=== PATIENT | male | born 1955 | race Two or more races ===

== ENCOUNTER 2020-04-07 19:25 | Inpatient (IN) | payer OTHER, MEDICAID ==
[~2020-04-07] VITALS: Ht 180.3 cm; Wt 77.1 kg
[2020-04-07] MEDS ORDERED: PROMETHAZINE HCL 25 MG/ML 1ML IV ONE (20:15)
[2020-04-07] MEDS ORDERED: levoFLOXacin 500MG 100 ML IV ONE (21:00)
[2020-04-07] MEDS ORDERED: SODIUM CHLORIDE 0.9% 1,000 ML IV ONE (21:00)
[2020-04-07] MEDS ORDERED: MORPHINE SULF INJ 2 MG/ML SYRINGE 1ML IV ONE (21:00)
[2020-04-07] MEDS ORDERED: metroNIDAZOLE 500MG/100ML 100 ML IV ONE (21:30)
[2020-04-07 21:43] LABS: Basophils # (auto) 0 10 ^3/uL (0-0.2); Basophils % (auto) 0.2 % (0.0-2.0); Eosinophils # (auto) 0 10 ^3/uL (0-0.8); Eosinophils % (auto) 0.2 % (0.0-7.0); Hemoglobin 15.7 g/dL (13.5-17.5); Lymphocytes # (auto) 1.4 10 ^3/uL (0.4-5.4); Lymphocytes % (auto) 6.6 % (10.0-50.0); Mean Corpuscular Hemoglobin 29.9 pg (28.0-32.0); Mean Corpuscular Hgb Conc. 33.4 g/dL (32.0-36.0); Mean Corpuscular Volume 89.5 fL (80.0-100.0); Monocytes # (auto) 1.2 10 ^3/uL (0-1.3); Monocytes % (auto) 5.5 % (0.0-12.0); Neutrophils # (auto) 18.8 10 ^3/uL (1.6-8.6); Neutrophils % (auto) 87.5 % (37.0-80.0); Nucleated Red Blood Cells % 0.5 %; Platelet Count (auto) 262 10^3/uL (140-450); Red Blood Cells 5.25 10^6/uL (4.5-5.90); Red Cell Distribution Width 14.4 % (11.8-14.3); White Blood Cell 21.5 10^3/uL (4.4-10.8)
[2020-04-07] MEDS ORDERED: DEXTROSE (50%) 50ML SYRG IV PRN (21:45)
[2020-04-07] MEDS ORDERED: TEMAZEPAM 15 MG CAP PO PRN (21:45)
[2020-04-07] MEDS ORDERED: PANTOPRAZOLE 40 MG TAB PO ONE (21:45)
[2020-04-07] MEDS ORDERED: ACETAMINOPHEN 325 MG TAB PO PRN (21:45)
[2020-04-07] MEDS ORDERED: ONDANSETRON HCL 4 MG/2 ML VIAL IV PRN (21:45)
[2020-04-07 21:53] LABS: Partial Thromboplastin Time 25.2 sec (23.0-31.2)
[2020-04-07 21:55] LABS: Albumin 2.7 g/dL (3.4-5.0); BUN/Creatinine Ratio 20.6; Calcium 9.1 mg/dL (8.5-10.1); Magnesium 2.8 mg/dL (1.6-2.6); Potassium 3.4 mmol/L (3.5-5.1)
[2020-04-07 22:00] LABS: Bilirubin, Total 0.6 mg/dL (0.2-1.0); Total Protein 7.7 g/dL (6.4-8.2)
[2020-04-07] MEDS ORDERED: metroNIDAZOLE 500MG/100ML 100 ML IV SCH (22:00)
[2020-04-07] MEDS: METOPROLOL TARTRATE 25 MG TAB PO SCH (22:10)
[2020-04-07] MEDS: hydrALAZINE HCL 25 MG TAB PO SCH (22:10)
--- NOTE | 2020-04-07 22:40 | NUR ---
MS admit from ER JAMA HIGUERA admitted to tele/MS after SBAR received. Patient oriented to KENNY GONSALEZ, RN primary RN, unit, room, bed, and unit policies regarding patient care and visiting hours. Patient weighed by bedscale and encouraged to call if they need something. All questions and concerns addressed, patient verbalized understanding.
[2020-04-07] MEDS ORDERED: GEMF600T7 PO (23:43)
[2020-04-07] MEDS ORDERED: PRED-158 PO (23:43)
[2020-04-07] MEDS ORDERED: ASPI-543 PO (23:43)
[2020-04-07] MEDS ORDERED: FURO40TA4 PO (23:43)
[2020-04-07] MEDS ORDERED: PANT40TA2 PO (23:43)
[2020-04-07] MEDS ORDERED: METO25TA93 PO (23:43)
[2020-04-07] MEDS ORDERED: HYDR50TA15 PO (23:43)
[2020-04-07] MEDS ORDERED: TAMS0.4C36 PO (23:43)
[2020-04-07 23:48] VITALS: BP 112/76
[2020-04-08] MEDS: ACCU-CHEK COMFORT CURVE STRIP VI SCH ×4 (00:26→18:19)
[2020-04-08] MEDS: InsuLIN REG 1unit/0.01ml Soln (100units/ml) SC SCH ×4 (00:26→18:24)
[2020-04-08] MEDS: HYDROcodone-ACET 5/325MG TAB PO PRN (04:22)
[2020-04-08 05:00] VITALS: BP 94/53
[2020-04-08] MEDS: metroNIDAZOLE 500MG/100ML 100 ML IV SCH ×2 (05:18→13:22)
--- NOTE | 2020-04-08 06:00 | NUR ---
Hospitalist called Informed hospitalist of patient's desire of increased pain medication. No new orders at this time.
--- NOTE | 2020-04-08 07:40 | NUR ---
Closing Shift Note Endorsed care to day shift RN
[2020-04-08 08:00] VITALS: BP 115/61
[2020-04-08 08:52] VITALS: BP 115/61
[2020-04-08] MEDS ORDERED: cefTRIAXone 1GM/50ML D5W 50 ML IV SCH (09:00)
[2020-04-08] MEDS: hydrALAZINE HCL 25 MG TAB PO SCH (09:07)
[2020-04-08] MEDS: PANTOPRAZOLE 40 MG TAB PO SCH (09:09)
[2020-04-08] MEDS: METOPROLOL TARTRATE 25 MG TAB PO SCH ×2 (09:09→22:35)
[2020-04-08] MEDS ORDERED: ISOSORBIDE MONONITRATE ER 60 MG TAB PO SCH (10:00)
[2020-04-08] MEDS ORDERED: FUROSEMIDE 40 MG TAB PO SCH (10:00)
[2020-04-08] MEDS ORDERED: predniSONE 5 MG TAB PO SCH (10:00)
[2020-04-08 10:05] LABS: BUN/Creatinine Ratio 17.3; Calcium 8.6 mg/dL (8.5-10.1); Potassium 3.6 mmol/L (3.5-5.1)
[2020-04-08 12:02] LABS: Urine Bacteria NONE SEEN /hpf (None Seen); Urine Blood Negative /uL (Negative); Urine Specific Gravity 1.015 (1.001-1.035); Urine WBC 1 /hpf (0 - 3)
[2020-04-08 13:00] VITALS: BP 94/68
[2020-04-08] MEDS ORDERED: predniSONE 5 MG TAB PO ONE (13:15)
[2020-04-08] MEDS: SODIUM CHLORIDE 0.9% 1,000 ML IV SCH (13:21)
--- NOTE | 2020-04-08 16:17 | NUR ---
MICRO RESULT MD HONG PAGED TO INFORM OF POSITIVE CDIFF RESULT. WILL AWAIT CALL BACK.
--- NOTE | 2020-04-08 16:20 | NUR ---
NEW ORDERS RECEIVED VIA TELEPHONE BY MD HONG. ORDERS READ BACK, AND VERIFIED. WILL CARRY OUT.
--- NOTE | 2020-04-08 16:35 | NUR ---
PHARMACY CLARIFICATION NEEDED MD HONG PAGED AGAIN BY PHARMACY REQUEST TO VERIFY NEW MEDICATION ORDER. REFER TO EMAR. WILL AWAIT CALL BACK.
[2020-04-08 16:56] VITALS: BP 101/63
--- NOTE | 2020-04-08 17:34 | NUR ---
AIRPLANE NAVIGATOR HOSPITALIST PAGED TO OBTAIN CLARIFICATION FOR VANCOMYCIN DOSAGE. WILL AWAIT CALL BACK.
[2020-04-08] MEDS ORDERED: VANCOMYCIN HCL 125MG/5ML ORAL SOL PO SCH (18:00)
[2020-04-08] MEDS: TAMSULOSIN HYDROCHLORIDE 0.4 MG CAP PO SCH (18:19)
[2020-04-08] MEDS: MESALAMINE 400mg Delayed Release Cap PO SCH (18:19)
--- NOTE | 2020-04-08 19:50 | NUR ---
Opening Shift Note Assumed care of patient, awake and alert. No S/S of distress/SOB or pain. Instructed on POC and to call for assist PRN, will continue to monitor for changes Q1hr and PRN. Fall precautions in place call light within reach and bed in low position . patient verbalized understanding to call for assistance.
[2020-04-08 22:00] VITALS: BP 80/56
--- NOTE | 2020-04-08 22:25 | NUR ---
Informed FLOORHAND ashley of pharmacy clarification for vancomycin. new orders received orders read back and verified by corrections specialist ashley.
[2020-04-08] MEDS: VANCOMYCIN HCL 125MG/5ML ORAL SOL PO SCH (22:34)
--- NOTE | 2020-04-08 22:34 | NUR ---
patient refusing scheduled medications. Patient refusing scheduled fluids. per patient " They already gave me apple juice i do not need fluids." " i do not want that medication." Patient denies sob distress or pain.Patient educated that blood pressure is low 80/56 and if he would allow me to reassess blood pressure patient refused. Patient educated on benefits and risks of medications and fluids. patient verbalized refusal and stated "It will be a cold day in hell before i let you." will continue to monitor patient. fall precautions in place. call light within reach and bed in low position.
[2020-04-09] MEDS: HYDROcodone-ACET 5/325MG TAB PO PRN (01:36)
[2020-04-09 05:00] VITALS: BP 119/85
[2020-04-09] MEDS: VANCOMYCIN HCL 125MG/5ML ORAL SOL PO SCH ×3 (05:58→17:47)
[2020-04-09] MEDS: SODIUM CHLORIDE 0.9% 1,000 ML IV SCH ×2 (05:58→22:39)
[2020-04-09] MEDS: InsuLIN REG 1unit/0.01ml Soln (100units/ml) SC SCH ×4 (05:59→17:51)
[2020-04-09] MEDS: ACCU-CHEK COMFORT CURVE STRIP VI SCH ×4 (05:59→17:47)
--- NOTE | 2020-04-09 06:43 | NUR ---
patient rounds patient resting in bed. denies sob distress or pain. iv is intact and patent. fall precautions in place. call light within reach and bed in low position.
--- NOTE | 2020-04-09 07:15 | NUR ---
report given to dayshift rn patient shows no signs of sob distress or pain
[2020-04-09 07:32] LABS: Basophils # (auto) 0.1 10 ^3/uL (0-0.2); Basophils % (auto) 0.4 % (0.0-2.0); Eosinophils # (auto) 0.1 10 ^3/uL (0-0.8); Eosinophils % (auto) 0.5 % (0.0-7.0); Hematocrit 36.1 % (41.0-53.0); Hemoglobin 12.4 g/dL (13.5-17.5); Lymphocytes # (auto) 0.9 10 ^3/uL (0.4-5.4); Lymphocytes % (auto) 7.2 % (10.0-50.0); Mean Corpuscular Hemoglobin 30.9 pg (28.0-32.0); Mean Corpuscular Hgb Conc. 34.4 g/dL (32.0-36.0); Mean Corpuscular Volume 89.7 fL (80.0-100.0); Monocytes # (auto) 0.5 10 ^3/uL (0-1.3); Monocytes % (auto) 4.2 % (0.0-12.0); Neutrophils % (auto) 87.7 % (37.0-80.0); Platelet Count (auto) 194 10^3/uL (140-450); Red Blood Cells 4.02 10^6/uL (4.5-5.90); Red Cell Distribution Width 14.1 % (11.8-14.3); White Blood Cell 12.6 10^3/uL (4.4-10.8)
[2020-04-09 07:52] LABS: Calcium 8.5 mg/dL (8.5-10.1); Potassium 3.5 mmol/L (3.5-5.1)
--- NOTE | 2020-04-09 08:40 | NUR ---
DR GRANT AT BED SIDE DISCUSSING POC WITH PATIENT. PATIENT VERBALIZES UNDERSTANDING.
--- NOTE | 2020-04-09 08:45 | NUR ---
REQUEST FOR PATIENT MEDICAL REPORTS (GI REPORTS/PATHOLOGY) FAXED TO [facility] TO FAX #:[phone]
[2020-04-09 09:00] VITALS: BP 110/80
[2020-04-09] MEDS ORDERED: predniSONE 20 MG TAB PO SCH (10:00)
[2020-04-09] MEDS ORDERED: predniSONE 5 MG TAB PO SCH (10:00)
[2020-04-09] MEDS: ASPirin 81 mg TAB PO SCH (10:04)
[2020-04-09] MEDS: FLORASTOR (S. BOULARDII) 250 MG CAP PO SCH (10:04)
[2020-04-09] MEDS: METOPROLOL TARTRATE 25 MG TAB PO SCH ×2 (10:05→22:00)
[2020-04-09] MEDS: PANTOPRAZOLE 40 MG TAB PO SCH (10:05)
--- NOTE | 2020-04-09 10:19 | NUR ---
MEDICAL RECORDS RECEIVED FROM [facility] AND IN HARD CHART
[2020-04-09 12:47] VITALS: BP 130/77
[2020-04-09] MEDS: metroNIDAZOLE 500 MG TAB PO SCH ×2 (14:11→22:39)
--- NOTE | 2020-04-09 14:39 | NUR ---
Nutrition Assessment Notes Please refer to link for full assessment notes. Est Energy needs: 8193-1063 kcals (30-35 kcal/kgBW) d/t pt Stg 3 CKD Est Protein needs: 41-52 gms/day (0.6-0.75 gm/kgBW) d/t pt Stg 3 CKD Will continue to monitor and reassess prn. Addendum: 04/09/20 at [address] Amended: Links added.
[2020-04-09 16:47] VITALS: BP 120/85
[2020-04-09] MEDS: TAMSULOSIN HYDROCHLORIDE 0.4 MG CAP PO SCH (17:47)
[2020-04-09] MEDS: MESALAMINE 400mg Delayed Release Cap PO SCH (17:47)
--- NOTE | 2020-04-09 19:30 | NUR ---
Opening Shift Note Assumed care of patient, awake and alert. A&Ox4. No S/S of distress/SOB or pain. Safety measures maintained by keeping the bed locked in lowest position, personal items and call light within reach. Instructed on POC and to call for assist PRN, will continue to monitor for changes Q1hr and PRN.
[2020-04-09 22:00] VITALS: BP 98/68
[2020-04-10] MEDS: ACCU-CHEK COMFORT CURVE STRIP VI SCH ×5 (00:14→23:47)
[2020-04-10] MEDS: InsuLIN REG 1unit/0.01ml Soln (100units/ml) SC SCH ×5 (00:14→23:52)
[2020-04-10] MEDS: VANCOMYCIN HCL 125MG/5ML ORAL SOL PO SCH ×5 (00:14→23:47)
[2020-04-10 05:00] VITALS: BP 105/74
[2020-04-10] MEDS: metroNIDAZOLE 500 MG TAB PO SCH ×3 (05:51→22:55)
[2020-04-10 09:00] VITALS: BP 133/75
[2020-04-10 10:15] LABS: Albumin 2.5 g/dL (3.4-5.0); Calcium 8.2 mg/dL (8.5-10.1); Potassium 3.6 mmol/L (3.5-5.1)
[2020-04-10 10:17] LABS: Basophils # (auto) 0.1 10 ^3/uL (0-0.2); Basophils % (auto) 0.5 % (0.0-2.0); Eosinophils # (auto) 0.1 10 ^3/uL (0-0.8); Eosinophils % (auto) 0.8 % (0.0-7.0); Hematocrit 37.2 % (41.0-53.0); Hemoglobin 12.4 g/dL (13.5-17.5); Lymphocytes # (auto) 1.6 10 ^3/uL (0.4-5.4); Lymphocytes % (auto) 13.2 % (10.0-50.0); Mean Corpuscular Hemoglobin 30.7 pg (28.0-32.0); Mean Corpuscular Hgb Conc. 33.3 g/dL (32.0-36.0); Mean Corpuscular Volume 92.1 fL (80.0-100.0); Monocytes # (auto) 0.8 10 ^3/uL (0-1.3); Neutrophils # (auto) 9.5 10 ^3/uL (1.6-8.6); Neutrophils % (auto) 78.5 % (37.0-80.0); Platelet Count (auto) 220 10^3/uL (140-450); Red Blood Cells 4.04 10^6/uL (4.5-5.90); Red Cell Distribution Width 14.3 % (11.8-14.3)
[2020-04-10 10:20] LABS: BUN/Creatinine Ratio 13.8; Bilirubin, Total 0.3 mg/dL (0.2-1.0); Total Protein 6.4 g/dL (6.4-8.2)
[2020-04-10] MEDS: PANTOPRAZOLE 40 MG TAB PO SCH (10:23)
[2020-04-10] MEDS: ASPirin 81 mg TAB PO SCH (10:23)
[2020-04-10] MEDS: METOPROLOL TARTRATE 25 MG TAB PO SCH ×2 (10:24→22:00)
[2020-04-10] MEDS: FLORASTOR (S. BOULARDII) 250 MG CAP PO SCH (10:24)
[2020-04-10] MEDS: HYDROcodone-ACET 5/325MG TAB PO PRN ×2 (11:37→20:51)
[2020-04-10] MEDS: MESALAMINE 400mg Delayed Release Cap PO SCH ×2 (11:38→22:56)
--- NOTE | 2020-04-10 11:50 | NUR ---
IV ACCESS Patient has no IV access, Doctor Sarah informed, per Doctor Sarah patient doesn't need a IV at this time all medications are PO. Per doctor Sarah patient is okay with no IV access.
--- NOTE | 2020-04-10 12:15 | NUR ---
PATIENT TAKEN DOWN TO OR FOR A PROCEDURE. Addendum: 04/10/20 at 1238 by THUY CAAL RN RN WRONG PATIENT
[2020-04-10 13:00] VITALS: BP 147/84
[2020-04-10 17:00] VITALS: BP 98/74
[2020-04-10] MEDS: TAMSULOSIN HYDROCHLORIDE 0.4 MG CAP PO SCH (18:20)
--- NOTE | 2020-04-10 19:30 | NUR ---
Opening Shift Note Assumed care of patient, awake and alert. Patient resting in bed. A&Ox4. No S/S of distress/SOB or pain. Safety measures maintained by keeping the bed locked in lowest position, 2 side rails up, personal items and call light within reach. Instructed on POC and to call for assist PRN, will continue to monitor for changes Q1hr and PRN.
[2020-04-10 23:08] VITALS: BP 94/58
[2020-04-11 05:23] VITALS: BP 129/81
[2020-04-11] MEDS: InsuLIN REG 1unit/0.01ml Soln (100units/ml) SC SCH ×4 (06:00→23:46)
[2020-04-11 06:19] LABS: Basophils # (auto) 0.1 10 ^3/uL (0-0.2); Basophils % (auto) 0.7 % (0.0-2.0); Eosinophils # (auto) 0.2 10 ^3/uL (0-0.8); Eosinophils % (auto) 1.8 % (0.0-7.0); Hematocrit 39.2 % (41.0-53.0); Hemoglobin 13.4 g/dL (13.5-17.5); Lymphocytes # (auto) 3.2 10 ^3/uL (0.4-5.4); Lymphocytes % (auto) 27.1 % (10.0-50.0); Mean Corpuscular Hemoglobin 31.3 pg (28.0-32.0); Mean Corpuscular Hgb Conc. 34.2 g/dL (32.0-36.0); Mean Corpuscular Volume 91.4 fL (80.0-100.0); Monocytes # (auto) 0.7 10 ^3/uL (0-1.3); Monocytes % (auto) 6.3 % (0.0-12.0); Neutrophils # (auto) 7.6 10 ^3/uL (1.6-8.6); Neutrophils % (auto) 64.1 % (37.0-80.0); Nucleated Red Blood Cells % 0.1 %; Platelet Count (auto) 235 10^3/uL (140-450); Red Blood Cells 4.29 10^6/uL (4.5-5.90); Red Cell Distribution Width 14.6 % (11.8-14.3); White Blood Cell 11.8 10^3/uL (4.4-10.8)
[2020-04-11] MEDS: ACCU-CHEK COMFORT CURVE STRIP VI SCH ×4 (06:25→23:47)
[2020-04-11] MEDS: metroNIDAZOLE 500 MG TAB PO SCH ×3 (06:28→22:37)
[2020-04-11] MEDS: VANCOMYCIN HCL 125MG/5ML ORAL SOL PO SCH ×4 (06:29→23:46)
[2020-04-11 06:43] LABS: Albumin 2.4 g/dL (3.4-5.0); BUN/Creatinine Ratio 14.6; Calcium 8.1 mg/dL (8.5-10.1); Potassium 3.8 mmol/L (3.5-5.1)
[2020-04-11 06:46] LABS: Bilirubin, Total 0.3 mg/dL (0.2-1.0); Total Protein 6.2 g/dL (6.4-8.2)
[2020-04-11 08:00] VITALS: BP 137/83
[2020-04-11] MEDS ORDERED: predniSONE 20 MG TAB PO SCH ×2 (10:00→13:45)
[2020-04-11] MEDS: METOPROLOL TARTRATE 25 MG TAB PO SCH ×2 (10:19→22:38)
[2020-04-11] MEDS: FLORASTOR (S. BOULARDII) 250 MG CAP PO SCH (10:19)
[2020-04-11] MEDS: ASPirin 81 mg TAB PO SCH (10:19)
[2020-04-11] MEDS: PANTOPRAZOLE 40 MG TAB PO SCH (10:19)
[2020-04-11] MEDS: MESALAMINE 400mg Delayed Release Cap PO SCH ×2 (10:30→23:45)
[2020-04-11 12:00] VITALS: BP 124/77
--- NOTE | 2020-04-11 13:40 | NUR ---
Doctor Sarah at bedside, per Md he will d/c patient tomorrow morning.
[2020-04-11 17:00] VITALS: BP 114/79
[2020-04-11] MEDS: TAMSULOSIN HYDROCHLORIDE 0.4 MG CAP PO SCH (17:55)
--- NOTE | 2020-04-11 19:30 | NUR ---
Opening Shift Note Assumed care of patient, awake and alert. Patient sitting up in bed watching TV. A&Ox4. No S/S of distress/SOB or pain. Safety measures maintained by keeping the bed locked in lowest position, personal items and call light within reach. Instructed on POC and to call for assist PRN, will continue to monitor for changes Q1hr and PRN.
[2020-04-11 21:00] VITALS: BP 126/77
--- NOTE | 2020-04-11 22:30 | NUR ---
Called in house cra to obtain med from ER Med obtained at 2330
[2020-04-12 05:00] VITALS: BP 129/86
[2020-04-12 05:22] LABS: Basophils # (auto) 0 10 ^3/uL (0-0.2); Basophils % (auto) 0.2 % (0.0-2.0); Eosinophils # (auto) 0 10 ^3/uL (0-0.8); Eosinophils % (auto) 0.3 % (0.0-7.0); Hematocrit 37.6 % (41.0-53.0); Hemoglobin 12.5 g/dL (13.5-17.5); Lymphocytes % (auto) 13.1 % (10.0-50.0); Mean Corpuscular Hemoglobin 30.5 pg (28.0-32.0); Mean Corpuscular Hgb Conc. 33.2 g/dL (32.0-36.0); Monocytes # (auto) 0.7 10 ^3/uL (0-1.3); Monocytes % (auto) 4.4 % (0.0-12.0); Neutrophils # (auto) 12.3 10 ^3/uL (1.6-8.6); Platelet Count (auto) 240 10^3/uL (140-450); Red Blood Cells 4.08 10^6/uL (4.5-5.90); Red Cell Distribution Width 14.4 % (11.8-14.3)
[2020-04-12 05:41] LABS: Calcium 8.1 mg/dL (8.5-10.1); Potassium 4.3 mmol/L (3.5-5.1)
[2020-04-12 05:43] LABS: BUN/Creatinine Ratio 14.3
[2020-04-12] MEDS: VANCOMYCIN HCL 125MG/5ML ORAL SOL PO SCH (05:49)
[2020-04-12] MEDS: ACCU-CHEK COMFORT CURVE STRIP VI SCH (05:49)
[2020-04-12] MEDS: metroNIDAZOLE 500 MG TAB PO SCH (05:49)
[2020-04-12] MEDS: InsuLIN REG 1unit/0.01ml Soln (100units/ml) SC SCH (05:50)
[2020-04-12 09:00] VITALS: BP 104/48
[2020-04-12] MEDS: PANTOPRAZOLE 40 MG TAB PO SCH (10:00)
[2020-04-12] MEDS ORDERED: predniSONE 20 MG TAB PO ONE (10:00)
[2020-04-12] MEDS: FLORASTOR (S. BOULARDII) 250 MG CAP PO SCH (10:00)
[2020-04-12] MEDS: MESALAMINE 400mg Delayed Release Cap PO SCH (10:00)
[2020-04-12] MEDS ORDERED: predniSONE 20 MG TAB PO SCH (10:00)
[2020-04-12] MEDS: ASPirin 81 mg TAB PO SCH (10:00)
[2020-04-12] MEDS: METOPROLOL TARTRATE 25 MG TAB PO SCH (10:00)
--- NOTE | 2020-04-12 10:25 | NUR ---
Discharge instructions given as ordered. Encourage to follow up with PMD as instructed. All questions and concerns addressed. Patient verbalized understanding. Medication reconciliation form completed and copy given to patient. Home medications held in Pharmacy have been returned to patient. New prescriptions given to patient. IV removed with catheter intact, pressure dressing applied. Patient taken to vehicle via wheelchair with all personal belongings, accompanied by staff. Family member waiting in front lobby for transportation home. No distress noted at time of departure.
[2020-04-12 12:40] LABS: Hepatitis B Surface Antibody Negative
[2020-04-12 13:14] LABS: Hepatitis A Total Antibody Positive
[2020-04-12 14:00] LABS: Hepatitis B Core Total AB Negative
[2020-04-12 14:01] LABS: Hepatitis B Surface Antigen Negative (Negative)
[2020-04-12 14:02] LABS: Hepatitis C Antibody Positive (Negative)
== END 2020-04-12 10:25 | disposition home or self-care (01) | DRG 872 ==
LOC: EDUNIT# 19:25 → EDBD 19:25 → ER 19:30 → OVERFLOW 19:31 → WEST WING 22:40
PROVIDERS: ADMIT Nurse Practitioner; ATTEND Internal Medicine
DX: A41.9 Sepsis, unspecified organism (principal); A04.72 Enterocolitis due to Clostridium difficile, not specified as recurrent; K57.92 Diverticulitis of intestine, part unspecified, without perforation or abscess without bleeding; E44.0 Moderate protein-calorie malnutrition; N17.9 Acute kidney failure, unspecified; N18.9 Chronic kidney disease, unspecified; E78.5 Hyperlipidemia, unspecified; E86.0 Dehydration; I25.10 Atherosclerotic heart disease of native coronary artery without angina pectoris; E11.22 Type 2 diabetes mellitus with diabetic chronic kidney disease; F32.9 Major depressive disorder, single episode, unspecified; I12.9 Hypertensive chronic kidney disease with stage 1 through stage 4 chronic kidney disease, or unspecified chronic kidney disease; Z82.49 Family history of ischemic heart disease and other diseases of the circulatory system; Z95.1 Presence of aortocoronary bypass graft
CPT/HCPCS: 36415; 71045; 74176; 80048; 80053; 81001; 82150; 82962; 83690; 83735; 84484; 85025; 85610; 85730; 86704; 86706; 86708; 86803; 87040; 87340; 87493; 93005; G0378; J0696; J1815; J1956; J3490

== ENCOUNTER 2020-05-31 09:35 | Inpatient (IN) | payer OTHER, MEDICAID ==
[~2020-05-31] VITALS: Ht 162.6 cm; Wt 76.0 kg
[~2020-05-31 09:35] MED LIST: ASPI-543 PO; FURO40TA4 PO; GEMF600T7 PO; HYDR50TA15 PO; METO25TA93 PO; PANT40TA2 PO; PRED-158 PO; TAMS0.4C36 PO
[2020-05-31] MEDS ORDERED: ACETAMINOPHEN 500 MG TAB PO ONE (11:30)
[2020-05-31 12:20] LABS: Basophils # (auto) 0.1 10 ^3/uL (0-0.2); Basophils % (auto) 0.6 % (0.0-2.0); Eosinophils # (auto) 0.1 10 ^3/uL (0-0.8); Eosinophils % (auto) 0.6 % (0.0-7.0); Hematocrit 40.1 % (41.0-53.0); Hemoglobin 13.7 g/dL (13.5-17.5); Lymphocytes # (auto) 2.6 10 ^3/uL (0.4-5.4); Lymphocytes % (auto) 17.4 % (10.0-50.0); Mean Corpuscular Hemoglobin 30.9 pg (28.0-32.0); Mean Corpuscular Hgb Conc. 34.2 g/dL (32.0-36.0); Mean Corpuscular Volume 90.6 fL (80.0-100.0); Monocytes # (auto) 1.5 10 ^3/uL (0-1.3); Neutrophils # (auto) 10.6 10 ^3/uL (1.6-8.6); Neutrophils % (auto) 71.4 % (37.0-80.0); Nucleated Red Blood Cells % 0.1 %; Platelet Count (auto) 353 10^3/uL (140-450); Red Blood Cells 4.42 10^6/uL (4.5-5.90); Red Cell Distribution Width 13.2 % (11.8-14.3); White Blood Cell 14.9 10^3/uL (4.4-10.8)
[2020-05-31 12:33] LABS: INR 1.03 (0.9-1.15); Partial Thromboplastin Time 27.5 sec (23.0-31.2)
[2020-05-31 12:52] LABS: Calcium 9.3 mg/dL (8.5-10.1)
[2020-05-31 12:54] LABS: BUN/Creatinine Ratio 8.3
[2020-05-31] MEDS ORDERED: MORPHINE SULFATE 4 MG/ML SYR/VIAL IV ONE (13:15)
[2020-05-31] MEDS ORDERED: ONDANSETRON HCL 4 MG/2 ML VIAL IV ONE (13:15)
[2020-05-31] MEDS ORDERED: SODIUM CHLORIDE 0.9% 1,000 ML IV ONE ×4 (13:30→16:15)
[2020-05-31] MEDS ORDERED: PIPERACILLIN-TAZOB 3.375GM 100 ML IV ONE (13:30)
[2020-05-31] MEDS ORDERED: POTASSIUM EFFERVESENT TAB 25 MEQ PO ONE (16:00)
[2020-05-31] MEDS ORDERED: ACETAMINOPHEN 325 MG TAB PO PRN (16:15)
[2020-05-31] MEDS ORDERED: ONDANSETRON HCL 4 MG/2 ML VIAL IV PRN (16:15)
[2020-05-31] MEDS ORDERED: HYDROcodone-ACET 10/325MG TAB PO PRN (16:15)
[2020-05-31] MEDS ORDERED: NITROGLYCERIN 0.4 MG SL TAB SL PRN (16:15)
[2020-05-31] MEDS ORDERED: DEXTROSE (50%) 50ML SYRG IV PRN (16:45)
[2020-05-31] MEDS ORDERED: POTASSIUM CHL 20 Meq TABLET PO ONE ×2 (17:00→20:00)
[2020-05-31] MEDS: ACCU-CHEK COMFORT CURVE STRIP VI SCH ×2 (17:22→23:01)
[2020-05-31] MEDS: InsuLIN REG 1unit/0.01ml Soln (100units/ml) SC SCH ×2 (17:22→22:00)
[2020-05-31] MEDS ORDERED: PIPERACILLIN-TAZOB 2.25GM 50 ML IV SCH (18:00)
[2020-05-31 19:25] LABS: Urine Bacteria FEW /hpf (None Seen); Urine Blood TRACE /uL (Negative); Urine Specific Gravity 1.014 (1.001-1.035); Urine WBC 2 /hpf (0 - 3)
[2020-05-31] MEDS: PIPERACILLIN-TAZOB 2.25GM 50 ML IV SCH (20:06)
[2020-05-31] MEDS: MORPHINE SULF INJ 2 MG/ML SYRINGE 1ML IV PRN (23:02)
[2020-05-31] MEDS: LINEZOLID 600MG/300ML 300 ML IV SCH (23:03)
[2020-06-01] MEDS: PIPERACILLIN-TAZOB 2.25GM 50 ML IV SCH ×4 (01:53→20:30)
[2020-06-01] MEDS: MORPHINE SULF INJ 2 MG/ML SYRINGE 1ML IV PRN ×2 (03:33→08:01)
[2020-06-01 06:00] LABS: Basophils # (auto) 0.1 10 ^3/uL (0-0.2); Basophils % (auto) 0.6 % (0.0-2.0); Eosinophils # (auto) 0.1 10 ^3/uL (0-0.8); Eosinophils % (auto) 0.9 % (0.0-7.0); Hematocrit 33.1 % (41.0-53.0); Hemoglobin 11.3 g/dL (13.5-17.5); Lymphocytes # (auto) 1.8 10 ^3/uL (0.4-5.4); Lymphocytes % (auto) 16.7 % (10.0-50.0); Mean Corpuscular Hemoglobin 31.4 pg (28.0-32.0); Mean Corpuscular Hgb Conc. 34.2 g/dL (32.0-36.0); Mean Corpuscular Volume 91.8 fL (80.0-100.0); Monocytes # (auto) 1.2 10 ^3/uL (0-1.3); Monocytes % (auto) 10.7 % (0.0-12.0); Neutrophils # (auto) 7.7 10 ^3/uL (1.6-8.6); Neutrophils % (auto) 71.1 % (37.0-80.0); Platelet Count (auto) 310 10^3/uL (140-450); Red Cell Distribution Width 13.2 % (11.8-14.3); White Blood Cell 10.8 10^3/uL (4.4-10.8)
[2020-06-01] MEDS: InsuLIN REG 1unit/0.01ml Soln (100units/ml) SC SCH ×4 (06:10→22:00)
[2020-06-01] MEDS: ACCU-CHEK COMFORT CURVE STRIP VI SCH ×4 (06:11→22:23)
[2020-06-01 06:21] LABS: Albumin 2.1 g/dL (3.4-5.0); Calcium 8.2 mg/dL (8.5-10.1); Potassium 3.8 mmol/L (3.5-5.1)
[2020-06-01 06:26] LABS: BUN/Creatinine Ratio 9.3; Bilirubin, Total 0.4 mg/dL (0.2-1.0); Total Protein 5.7 g/dL (6.4-8.2)
[2020-06-01] MEDS: PANTOPRAZOLE 40 MG/10 ML VIAL INJ IV SCH (09:55)
[2020-06-01] MEDS: LINEZOLID 600MG/300ML 300 ML IV SCH ×2 (09:55→22:22)
--- NOTE | 2020-06-01 11:25 | NUR ---
Patient transferred to unit in stable condition.
--- NOTE | 2020-06-01 12:20 | NUR ---
Checked blood sugar: 140 mg/dl - will cover per sliding scale.
--- NOTE | 2020-06-01 12:35 | NUR ---
Covered per sliding scale. Patient eating lunch at this time; stable.
[2020-06-01 13:00] VITALS: BP 92/65
[2020-06-01 13:26] VITALS: BP 107/72
--- NOTE | 2020-06-01 14:30 | NUR ---
Scheduled IV abx given per order. Patient stable with Dr. Schaefer at bedside.
[2020-06-01 17:00] VITALS: BP 121/75
--- NOTE | 2020-06-01 17:00 | NUR ---
Checked blood sugar: 95 mg/dl - no coverage required. Patient cleaned and repositioned.
[2020-06-01] MEDS: SODIUM CHLORIDE 0.9% 1,000 ML IV SCH (17:02)
[2020-06-01 17:28] VITALS: BP 121/75
--- NOTE | 2020-06-01 18:00 | NUR ---
Patient asleep. Patient stable since transfer to unit.
[2020-06-01 18:14] LABS: Protein, Urine 133.6 mg/dL (0.0-11.9)
--- NOTE | 2020-06-01 19:30 | NUR ---
OPENING SHIFT NOTE Assumed care of patient who is A&O x4. Currently on RA with no s/s of distress. Reports 9/10 pain to left knee. Pain management options discussed with patient. PIV in left wrist is intact and patent. IVF infusing as ordered. Tariq catheter is place and patent. Tubing is secured to leg and free from kinks. Draining yellow urine to gravity. Dressing to left knee is CDI. POC discussed and patient verbalizes understanding. Bed is in low locked position with side rails up x2. Call light is within reach and patient encouraged to call for assistance when needed. Will continue to monitor for changes PRN.
[2020-06-01] MEDS: MORPHINE SULFATE 4 MG/ML SYR/VIAL IV PRN (19:47)
[2020-06-01 20:00] VITALS: BP 117/79
[2020-06-01 21:00] VITALS: BP 117/79
[2020-06-02] MEDS: PIPERACILLIN-TAZOB 2.25GM 50 ML IV SCH ×4 (02:00→19:30)
[2020-06-02] MEDS: SODIUM CHLORIDE 0.9% 1,000 ML IV SCH ×2 (02:45→14:03)
[2020-06-02 05:00] VITALS: BP 122/83
[2020-06-02 06:10] LABS: Basophils # (auto) 0.1 10 ^3/uL (0-0.2); Basophils % (auto) 0.7 % (0.0-2.0); Eosinophils # (auto) 0.2 10 ^3/uL (0-0.8); Hematocrit 34.2 % (41.0-53.0); Hemoglobin 11.8 g/dL (13.5-17.5); Lymphocytes # (auto) 1.5 10 ^3/uL (0.4-5.4); Lymphocytes % (auto) 16.3 % (10.0-50.0); Mean Corpuscular Hemoglobin 31.4 pg (28.0-32.0); Mean Corpuscular Hgb Conc. 34.4 g/dL (32.0-36.0); Mean Corpuscular Volume 91.1 fL (80.0-100.0); Monocytes # (auto) 0.9 10 ^3/uL (0-1.3); Monocytes % (auto) 9.2 % (0.0-12.0); Neutrophils # (auto) 6.8 10 ^3/uL (1.6-8.6); Neutrophils % (auto) 71.8 % (37.0-80.0); Platelet Count (auto) 316 10^3/uL (140-450); Red Blood Cells 3.76 10^6/uL (4.5-5.90); Red Cell Distribution Width 13.4 % (11.8-14.3); White Blood Cell 9.5 10^3/uL (4.4-10.8)
[2020-06-02 06:17] LABS: Albumin 2.1 g/dL (3.4-5.0); Calcium 8.7 mg/dL (8.5-10.1); Potassium 3.5 mmol/L (3.5-5.1)
[2020-06-02] MEDS: ACCU-CHEK COMFORT CURVE STRIP VI SCH ×4 (06:21→22:13)
[2020-06-02 06:22] LABS: BUN/Creatinine Ratio 9.4; Bilirubin, Total 0.4 mg/dL (0.2-1.0)
[2020-06-02] MEDS: InsuLIN REG 1unit/0.01ml Soln (100units/ml) SC SCH ×4 (06:22→22:26)
[2020-06-02] MEDS: MORPHINE SULFATE 4 MG/ML SYR/VIAL IV PRN ×3 (06:46→21:06)
--- NOTE | 2020-06-02 07:15 | NUR ---
Patient asleep. No distress noted at this time.
[2020-06-02 08:05] VITALS: BP 110/72
--- NOTE | 2020-06-02 08:05 | NUR ---
Scheduled IV abx given per order. Patient stable at this time.
[2020-06-02 09:00] VITALS: BP 110/72
[2020-06-02] MEDS: PANTOPRAZOLE 40 MG/10 ML VIAL INJ IV SCH (09:05)
--- NOTE | 2020-06-02 09:05 | NUR ---
Patient resting quietly in bed with no distress noted. Scheduled IVP medication given per order. Patient stable.
--- NOTE | 2020-06-02 09:43 | NUR ---
Patient stable with Dr. Smith at bedside.
[2020-06-02] MEDS ORDERED: METOPROLOL SUCCINATE XL 50 MG TAB PO SCH (10:00)
[2020-06-02] MEDS: LINEZOLID 600MG/300ML 300 ML IV SCH ×2 (10:53→22:30)
--- NOTE | 2020-06-02 10:55 | NUR ---
Scheduled IV abx and po medications given per order.
--- NOTE | 2020-06-02 11:12 | NUR ---
Patient stable with Dr. Schaefer at bedside.
--- NOTE | 2020-06-02 11:23 | NUR ---
Patient medicated for 05/06 pain in left knee. Addendum: 06/02/20 at 1128 by BRAYDON DAVIDSON RN RN Checked blood sugar: 159 mg/dl - will cover per sliding scale. Addendum: 06/02/20 at 1217 by BRAYDON DAVIDSON RN RN Covered per sliding scale. Patient stable at this time.
[2020-06-02] MEDS ORDERED: COLCHICINE 0.6 MG CAP PO SCH (12:00)
[2020-06-02 13:00] VITALS: BP 122/66
--- NOTE | 2020-06-02 14:01 | NUR ---
Scheduled IV abx and po medication given per order. Patient resting comfortably in bed.
[2020-06-02] MEDS: hydrALAZINE HCL 25 MG TAB PO SCH ×2 (14:02→22:00)
[2020-06-02 17:06] VITALS: BP 120/78
--- NOTE | 2020-06-02 17:10 | NUR ---
Patient stable with Dr. Walters and MARC Nobles at bedside.
--- NOTE | 2020-06-02 17:25 | NUR ---
Patient ambulating with walker assist in hallway; MARC Nobles, standby assist.
--- NOTE | 2020-06-02 17:40 | NUR ---
Patient sitting on side of bed with PT at bedside. Checked blood sugar: 116 mg/dl - no coverage required at this time. Patient stable.
--- NOTE | 2020-06-02 18:15 | NUR ---
Patient eating dinner. Patient stable throughout shift.
--- NOTE | 2020-06-02 19:30 | NUR ---
OPENING SHIFT NOTE Assumed care of patient who is A&O x4. Currently on RA with no s/s of distress. Reports 9/10 pain to left knee. Left knee is reddened and minimally swollen. Pain management options discussed. PIV in right wrist is intact and patent. Currently infusing IVF as ordered. POC discussed. Bed is in low locked position, with side rails up x2. Call light is within reach and patient encouraged to call for assistance when needed. Will continue to monitor for changes PRN.
[2020-06-02 21:54] VITALS: BP 113/78
[2020-06-02] MEDS: COLCHICINE 0.6 MG CAP PO SCH (22:05)
[2020-06-02] MEDS: PANTOPRAZOLE 40 MG TAB PO SCH (22:05)
--- NOTE | 2020-06-02 22:30 | NUR ---
DECREASED BLOOD PRESSURE Blood pressure assessed and is 76/52, HR: 79. Patient is alert and oriented. Called Dr. Smith to notify. Awaiting call back.
--- NOTE | 2020-06-02 22:35 | NUR ---
MD CALL BACK Received call from Dr. Smith. New orders received to discontinue all blood pressure medications. Will follow through.
--- NOTE | 2020-06-02 23:00 | NUR ---
REASSESSMENT Blood pressure is currently 81/55. Will continue monitoring.
[2020-06-03] VITALS (7 sets, daily range): BP systolic 91–115; BP diastolic 55–86
--- NOTE | 2020-06-03 00:04 | NUR ---
REASSESSMENT Blood pressure reassessed and is 90/40. Patient is alert, oriented and talkative. Will continue monitoring.
[2020-06-03] MEDS: SODIUM CHLORIDE 0.9% 1,000 ML IV SCH ×2 (01:54→15:18)
--- NOTE | 2020-06-03 02:26 | NUR ---
PATIENT CARE Patient cleaned and repositioned after small formed BM. Tolerated well
[2020-06-03] MEDS: PIPERACILLIN-TAZOB 2.25GM 50 ML IV SCH ×4 (05:21→20:25)
[2020-06-03] MEDS: ACCU-CHEK COMFORT CURVE STRIP VI SCH ×4 (06:16→21:26)
[2020-06-03] MEDS: InsuLIN REG 1unit/0.01ml Soln (100units/ml) SC SCH ×4 (06:16→21:26)
[2020-06-03 06:35] LABS: Basophils # (auto) 0.1 10 ^3/uL (0-0.2); Basophils % (auto) 0.7 % (0.0-2.0); Eosinophils # (auto) 0.3 10 ^3/uL (0-0.8); Eosinophils % (auto) 3.2 % (0.0-7.0); Hematocrit 31.8 % (41.0-53.0); Lymphocytes # (auto) 1.4 10 ^3/uL (0.4-5.4); Lymphocytes % (auto) 17.2 % (10.0-50.0); Mean Corpuscular Hemoglobin 31.4 pg (28.0-32.0); Mean Corpuscular Hgb Conc. 34.5 g/dL (32.0-36.0); Monocytes # (auto) 0.6 10 ^3/uL (0-1.3); Monocytes % (auto) 7.4 % (0.0-12.0); Neutrophils # (auto) 5.9 10 ^3/uL (1.6-8.6); Neutrophils % (auto) 71.5 % (37.0-80.0); Platelet Count (auto) 326 10^3/uL (140-450); Red Cell Distribution Width 13.1 % (11.8-14.3); White Blood Cell 8.2 10^3/uL (4.4-10.8)
[2020-06-03 07:02] LABS: Potassium 3.5 mmol/L (3.5-5.1)
[2020-06-03 07:13] LABS: BUN/Creatinine Ratio 9.4; Bilirubin, Total 0.3 mg/dL (0.2-1.0); Calcium 8.4 mg/dL (8.5-10.1); Total Protein 5.6 g/dL (6.4-8.2)
--- NOTE | 2020-06-03 08:23 | NUR ---
Scheduled IV abx given per order. Patient resting comfortably in bed with no distress noted. Patient stable.
--- NOTE | 2020-06-03 09:25 | NUR ---
Patient ambulated in hallway and back to bed; sitting on side of bed at this time. Scheduled medications given per order. Patient stable.
[2020-06-03] MEDS: GEMFIBROZIL 600 MG TAB PO SCH (09:27)
[2020-06-03] MEDS: TAMSULOSIN HYDROCHLORIDE 0.4 MG CAP PO SCH (09:27)
[2020-06-03] MEDS: FUROSEMIDE 40 MG TAB PO SCH (09:27)
[2020-06-03] MEDS: ASPirin-EC 81 mg tab PO SCH (09:27)
[2020-06-03] MEDS: COLCHICINE 0.6 MG CAP PO SCH ×3 (09:27→21:22)
[2020-06-03] MEDS: ALLOPURINOL 100 MG TAB PO SCH (10:47)
[2020-06-03] MEDS: PANTOPRAZOLE 40 MG TAB PO SCH ×2 (10:47→21:22)
--- NOTE | 2020-06-03 10:50 | NUR ---
Scheduled medications given per order. Patient stable.
--- NOTE | 2020-06-03 11:00 | NUR ---
Tariq catheter removed per order. Patient out-of bed to use bedside commode.
--- NOTE | 2020-06-03 11:20 | NUR ---
Checked blood sugar: 145 mg/dl - will cover per sliding scale. Addendum: 06/03/20 at 1207 by BRAYDON DAVIDSON RN RN 1205: Covered per sliding scale.
--- NOTE | 2020-06-03 11:31 | NUR ---
Nutrition Assessment Est energy needs 3437-9639 kcal (20-25 kcal/kg BW 78.2kg) Est protein needs 47-62g (0.6-0.8g/kg BW 78.2kg elevated RFTs with chronic renal failure no HD) Will reassess prn. Addendum: 06/03/20 at [address] Amended: Links added.
--- NOTE | 2020-06-03 15:18 | NUR ---
Scheduled IV abx given per order. Patient resting quietly in bed at this time.
--- NOTE | 2020-06-03 16:15 | NUR ---
Patient resting comfortably in bed with eyes closed. No distress noted at this time.
--- NOTE | 2020-06-03 17:35 | NUR ---
Checked blood sugar: 112 mg/dl - no coverage required. Patient stable at this time.
--- NOTE | 2020-06-03 18:15 | NUR ---
Patient resting quietly in bed with no complaint of pain. Patient stable throughout shift.
--- NOTE | 2020-06-03 19:25 | NUR ---
Opening Shift Note Endorsed care from Jasmyne STOKES. Assumed care of patient, awake and alert. No S/S of distress/SOB or pain. Bed locked in lowest position, side rails up X2, call light within reach. Instructed on POC and to call for assist PRN, will continue to monitor for changes Q1hr and PRN.
[2020-06-04] MEDS: MORPHINE SULFATE 4 MG/ML SYR/VIAL IV PRN ×4 (00:52→19:48)
[2020-06-04] MEDS: PIPERACILLIN-TAZOB 2.25GM 50 ML IV SCH ×4 (01:28→19:47)
[2020-06-04] MEDS: SODIUM CHLORIDE 0.9% 1,000 ML IV SCH ×2 (04:30→16:45)
[2020-06-04 05:00] VITALS: BP 135/85
[2020-06-04] MEDS: InsuLIN REG 1unit/0.01ml Soln (100units/ml) SC SCH ×4 (05:49→22:00)
[2020-06-04] MEDS: ACCU-CHEK COMFORT CURVE STRIP VI SCH ×4 (05:49→22:06)
[2020-06-04 06:28] LABS: BUN/Creatinine Ratio 7.8; Calcium 8.5 mg/dL (8.5-10.1); Potassium 3.4 mmol/L (3.5-5.1)
--- NOTE | 2020-06-04 07:21 | NUR ---
Closing note Care endorsed to Mary Beth Addendum: 06/04/20 at 0724 by YUSEF ROSE RN RN Care endorsed to Litzy STOKES, Patient resting in bed locked lowest position, side rails up X2, call light within reach. No signs of SOB or distress.
[2020-06-04 09:00] VITALS: BP 125/63
[2020-06-04] MEDS: COLCHICINE 0.6 MG CAP PO SCH ×2 (09:31→22:04)
[2020-06-04] MEDS: PANTOPRAZOLE 40 MG TAB PO SCH ×2 (09:32→22:04)
[2020-06-04] MEDS: GEMFIBROZIL 600 MG TAB PO SCH (09:32)
[2020-06-04] MEDS: ASPirin-EC 81 mg tab PO SCH (09:32)
[2020-06-04] MEDS: ALLOPURINOL 100 MG TAB PO SCH (09:32)
[2020-06-04] MEDS: TAMSULOSIN HYDROCHLORIDE 0.4 MG CAP PO SCH (09:33)
[2020-06-04] MEDS: FUROSEMIDE 40 MG TAB PO SCH (09:33)
[2020-06-04] MEDS ORDERED: POTASSIUM CHL 20 Meq TABLET PO ONE (12:00)
--- NOTE | 2020-06-04 12:58 | NUR ---
assessment Patient is a 64 year old male who is alert and oriented. Patients cognitive abilities are intact. Prior to admission patient lived home with a friend and functioned independently. Patient informed me he is able to care for his own ADLs. Per patient he will return home to his prior living arrangements post discharge and his friend will transport him home. Patients PCP is Dr Rip Smith. Patient informed me he has a fww and a cane for home use. Patient informed me he came to ER for shortness of breath. Patient has a diagnosis of sepsis. I will continue to monitor and follow up as appropriate for any post discharge needs. I informed patient he has a right to speak to a 7th grade social studies teacher regarding all care. I informed patient he has a right to participate in any and all discharge planning. Patient does not have a POA and advanced directive. I have offered patient information on POA and advanced directives. I informed the patient the advantages and benefits of having an Advanced Directive. Patient verbalized understanding and agreed to discharge plan. Addendum: 06/04/20 at 1301 by Kathy CARVAJAL Amended: Links added.
[2020-06-04 13:00] VITALS: BP 104/54
--- NOTE | 2020-06-04 14:54 | NUR ---
PATIENT REFUSED PT. DIVYA CASTELAN WAS NOTIFIED. Addendum: 06/04/20 at 1455 by JEREMIAS DUNHAM PTT Amended: Links added.
[2020-06-04 16:48] VITALS: BP 99/57
[2020-06-04] MEDS ORDERED: SODIUM CHLORIDE 0.9% 1,000 ML IV SCH (18:15)
--- NOTE | 2020-06-04 19:30 | NUR ---
Opening Shift Note Assumed care of patient, awake and alert. A&Ox4. Patient laying in bed. No S/S of distress/SOB or pain. Safety measures maintained by keeping the bed locked in lowest position, 2 side rails up, personal items and call light within reach. Instructed on POC and to call for assist PRN, will continue to monitor for changes Q1hr and PRN.
[2020-06-04 22:00] VITALS: BP 97/52
[2020-06-05] MEDS: MORPHINE SULFATE 4 MG/ML SYR/VIAL IV PRN ×5 (01:00→22:29)
[2020-06-05] MEDS: PIPERACILLIN-TAZOB 2.25GM 50 ML IV SCH ×4 (02:01→20:02)
[2020-06-05 05:00] VITALS: BP 115/84
[2020-06-05 05:57] LABS: Basophils # (auto) 0 10 ^3/uL (0-0.2); Basophils % (auto) 0.7 % (0.0-2.0); Eosinophils # (auto) 0.2 10 ^3/uL (0-0.8); Eosinophils % (auto) 3.6 % (0.0-7.0); Hematocrit 32.9 % (41.0-53.0); Hemoglobin 11.2 g/dL (13.5-17.5); Mean Corpuscular Hemoglobin 31.4 pg (28.0-32.0); Mean Corpuscular Hgb Conc. 34.2 g/dL (32.0-36.0); Monocytes # (auto) 0.5 10 ^3/uL (0-1.3); Neutrophils # (auto) 3.7 10 ^3/uL (1.6-8.6); Neutrophils % (auto) 56.7 % (37.0-80.0); Nucleated Red Blood Cells % 0.1 %; Platelet Count (auto) 357 10^3/uL (140-450); Red Blood Cells 3.57 10^6/uL (4.5-5.90); Red Cell Distribution Width 13.3 % (11.8-14.3); White Blood Cell 6.5 10^3/uL (4.4-10.8)
[2020-06-05 06:18] LABS: Potassium 3.6 mmol/L (3.5-5.1)
[2020-06-05 06:26] LABS: Calcium 9.1 mg/dL (8.5-10.1)
[2020-06-05] MEDS: ACCU-CHEK COMFORT CURVE STRIP VI SCH ×4 (06:35→22:24)
[2020-06-05] MEDS: InsuLIN REG 1unit/0.01ml Soln (100units/ml) SC SCH ×4 (06:35→22:00)
[2020-06-05 08:00] VITALS: BP 117/69
[2020-06-05] MEDS: COLCHICINE 0.6 MG CAP PO SCH ×2 (10:46→22:24)
[2020-06-05] MEDS: GEMFIBROZIL 600 MG TAB PO SCH (10:46)
[2020-06-05] MEDS: TAMSULOSIN HYDROCHLORIDE 0.4 MG CAP PO SCH (10:46)
[2020-06-05] MEDS: ASPirin-EC 81 mg tab PO SCH (10:46)
[2020-06-05] MEDS: PANTOPRAZOLE 40 MG TAB PO SCH ×2 (10:47→22:24)
[2020-06-05] MEDS: ALLOPURINOL 100 MG TAB PO SCH (10:47)
[2020-06-05] MEDS: FUROSEMIDE 40 MG TAB PO SCH (10:50)
[2020-06-05 12:00] VITALS: BP 108/59
--- NOTE | 2020-06-05 16:58 | NUR ---
PT IS AT SBA LEVEL WITH ACTIVITIES . D/C FROM P.T. NURSING TO ASSIST PATIENT NEEDED.
[2020-06-05 17:00] VITALS: BP 106/76
[2020-06-05] MEDS: PHENAZOPYRIDINE HCL 100 MG TAB PO SCH (17:49)
--- NOTE | 2020-06-05 20:02 | NUR ---
open note assumed care of pt, upon entering room pt eyes are closed and breathing is even and unlabored on room air. pt bed locked, low and 2x rails up. call light is in reach, this nurse will round q1hr and prn. this nurse to update pt on plan of care at later time.
[2020-06-05 22:04] VITALS: BP 98/52
[2020-06-06] MEDS: PIPERACILLIN-TAZOB 2.25GM 50 ML IV SCH ×3 (02:19→13:55)
[2020-06-06] MEDS: MORPHINE SULFATE 4 MG/ML SYR/VIAL IV PRN ×2 (04:17→10:38)
[2020-06-06 05:00] VITALS: BP 110/80
[2020-06-06] MEDS: InsuLIN REG 1unit/0.01ml Soln (100units/ml) SC SCH ×4 (06:56→17:00)
[2020-06-06] MEDS: ACCU-CHEK COMFORT CURVE STRIP VI SCH ×4 (06:56→17:00)
[2020-06-06 08:00] VITALS: BP 124/78
[2020-06-06] MEDS: PHENAZOPYRIDINE HCL 100 MG TAB PO SCH ×2 (09:12→18:00)
[2020-06-06] MEDS: PANTOPRAZOLE 40 MG TAB PO SCH (09:48)
[2020-06-06] MEDS: COLCHICINE 0.6 MG CAP PO SCH (09:48)
[2020-06-06] MEDS: GEMFIBROZIL 600 MG TAB PO SCH (09:48)
[2020-06-06] MEDS: ASPirin-EC 81 mg tab PO SCH (09:48)
[2020-06-06] MEDS: TAMSULOSIN HYDROCHLORIDE 0.4 MG CAP PO SCH (09:48)
[2020-06-06] MEDS: FUROSEMIDE 40 MG TAB PO SCH (09:49)
[2020-06-06] MEDS: ALLOPURINOL 100 MG TAB PO SCH (09:49)
[2020-06-06 12:00] VITALS: BP 116/66
--- NOTE | 2020-06-06 12:03 | NUR ---
Nutrition Followup Notes Wt: 76.0 kg Pt sleeping with no family by beside. pt with improving gout flare up. pt is currently on cardiac diet with adequate Po of 75% x 6 per RN doc Est energy needs 5252-8216 kcal (20-25 kcal/kg BW 78.2kg) Est protein needs 47-62g (0.6-0.8g/kg BW 78.2kg elevated RFTs with chronic renal failure no HD) Will reassess prn. LABS: CREAT 2.18 H GI: Pt with 3 BMs yesterday per RN doc. BS: 20 low risk. Refer to wound assessment report for full details. PES: 1) Altered nutrition related labs aeb pt with elevated RFTs, hyperglycemia, hypoalb r/t current and chronic medical conditions Comments Will continue to monitor PO intake, skin status, pertinent labs and weight trends. Will f/u in 3-5 days. 1) Continue to monitor po intake, labs, skin 2) refer pt to [facility] on Dc 3) Continue current plan of care
[2020-06-06 15:48] VITALS: BP 124/78
== END 2020-06-06 19:00 | disposition home or self-care (01) | DRG 871 ==
LOC: EDBD 09:35 → ER 09:35 → TELE 09:36 → OVERFLOW 06-01 10:49 → TELE-CENTR 06-01 11:21
PROVIDERS: ADMIT Internal Medicine; ATTEND Internal Medicine
PROC: 0S9D3ZZ Drainage of Left Knee Joint, Percutaneous Approach (ICD-10-PCS; principal; 2020-06-01)
DX: A41.9 Sepsis, unspecified organism (principal); J80 Acute respiratory distress syndrome; E43 Unspecified severe protein-calorie malnutrition; N18.4 Chronic kidney disease, stage 4 (severe); N17.9 Acute kidney failure, unspecified; M25.462 Effusion, left knee; E87.6 Hypokalemia; E11.21 Type 2 diabetes mellitus with diabetic nephropathy; I25.10 Atherosclerotic heart disease of native coronary artery without angina pectoris; I12.9 Hypertensive chronic kidney disease with stage 1 through stage 4 chronic kidney disease, or unspecified chronic kidney disease; K52.9 Noninfective gastroenteritis and colitis, unspecified; E66.9 Obesity, unspecified; Z20.828 Contact with and (suspected) exposure to other viral communicable diseases; E11.22 Type 2 diabetes mellitus with diabetic chronic kidney disease; F32.9 Major depressive disorder, single episode, unspecified; E78.5 Hyperlipidemia, unspecified; N28.1 Cyst of kidney, acquired; Z79.4 Long term (current) use of insulin; Z82.49 Family history of ischemic heart disease and other diseases of the circulatory system; Z83.3 Family history of diabetes mellitus; Z95.1 Presence of aortocoronary bypass graft; Z68.28 Body mass index [BMI] 28.0-28.9, adult; Z79.899 Other long term (current) drug therapy; M10.9 Gout, unspecified
CPT/HCPCS: 36415; 51702; 71045; 73502; 73562; 73610; 73620; 73700; 76775; 80048; 80053; 81001; 82570; 82962; 83615; 84156; 84550; 85025; 85610; 85652; 85730; 86141; 87040; 87086; 87205; 87426; 89051; 89060; 93005; 93306; 96361; 96365; 96375; 97110; 97116; 97163; 97530; C9113; G0378; J1815; J2405; J2543

== ENCOUNTER 2021-04-09 07:42 | Inpatient (IN) | payer OTHER, MEDICAID ==
[~2021-04-09] VITALS: Ht 162.6 cm; Wt 72.3 kg
[~2021-04-09 07:42] MED LIST changes: +GEMF-19 PO; -GEMF600T7 PO; -PRED-158 PO; +PRED10TA PO
[2021-04-09] MEDS ORDERED: METOCLOPRAMIDE HCL 5MG/ml INJ 2ml VIAL IV ONE (08:15)
[2021-04-09] MEDS ORDERED: SODIUM CHLORIDE 0.9% 1,000 ML IV ONE (08:15)
[2021-04-09] MEDS ORDERED: SODIUM CHLORIDE 0.9% 500 ML IVB ONE (08:15)
[2021-04-09] MEDS ORDERED: HYDROmorphone HCL 2 MG/ML VL IV ONE (08:15)
[2021-04-09 10:00] LABS: Basophils # (auto) 0.1 10 ^3/uL (0-0.2); Eosinophils # (auto) 0.1 10 ^3/uL (0-0.8); Eosinophils % (auto) 0.3 % (0.0-7.0); Hemoglobin 18.2 g/dL (13.5-17.5); Mean Corpuscular Hgb Conc. 34.8 g/dL (32.0-36.0)
[2021-04-09 10:01] LABS: Basophils % (auto) 0.4 % (0.0-2.0); Hematocrit 52.2 % (41.0-53.0); Lymphocytes % (auto) 12.1 % (10.0-50.0); Mean Corpuscular Hemoglobin 31.4 pg (28.0-32.0); Mean Corpuscular Volume 90.2 fL (80.0-100.0); Monocytes # (auto) 1.4 10 ^3/uL (0-1.3); Monocytes % (auto) 8.4 % (0.0-12.0); Neutrophils # (auto) 13.1 10 ^3/uL (1.6-8.6); Neutrophils % (auto) 78.8 % (37.0-80.0); Nucleated Red Blood Cells % 0.3 %; Red Blood Cells 5.78 10^6/uL (4.5-5.90); White Blood Cell 16.6 10^3/uL (4.4-10.8)
[2021-04-09 10:26] LABS: Albumin 2.3 g/dL (3.4-5.0); Calcium 7.6 mg/dL (8.5-10.1); Magnesium 2.9 mg/dL (1.6-2.6); Potassium 3.1 mmol/L (3.5-5.1)
[2021-04-09 10:30] LABS: BUN/Creatinine Ratio 16.7; Bilirubin, Total 0.5 mg/dL (0.2-1.0); Total Protein 7.4 g/dL (6.4-8.2)
[2021-04-09 11:05] LABS: Urine Bacteria FEW /hpf (None Seen); Urine Blood 2+ /uL (Negative); Urine Hyaline Cast FEW /lpf (0 - 2); Urine Mucus FEW (None Seen); Urine Specific Gravity 1.012 (1.001-1.035); Urine WBC 2 /hpf (0 - 3)
[2021-04-09] MEDS ORDERED: InsuLIN REG 1unit/0.01ml Soln (100units/ml) IV ONE (13:45)
[2021-04-09] MEDS ORDERED: DEXTROSE (50%) 50ML SYRG IV PRN (14:00)
[2021-04-09] MEDS ORDERED: NITROGLYCERIN 0.4 MG SL TAB SL PRN (14:00)
[2021-04-09] MEDS ORDERED: ONDANSETRON HCL 4 MG/2 ML VIAL IV PRN (14:00)
[2021-04-09] MEDS ORDERED: MORPHINE SULFATE INJECTION 2 MG/ML SYRG IV PRN (14:00)
[2021-04-09] MEDS ORDERED: SOD CHL 0.9%/ KCL 20MEQ 1,000 ML IV SCH (14:00)
[2021-04-09] MEDS ORDERED: levoFLOXacin 500MG 100 ML IV ONE (14:12)
[2021-04-09] MEDS: metroNIDAZOLE 500MG/100ML 100 ML IV SCH ×2 (14:21→21:00)
[2021-04-09] MEDS: SODIUM CHLORIDE 0.9% 1,000 ML IV SCH (14:21)
[2021-04-09] MEDS ORDERED: HYOSCYAMINE SULF 0.125 MG ODT TAB PO PRN (14:30)
[2021-04-09] MEDS: InsuLIN REG 1unit/0.01ml Soln (100units/ml) SC SCH ×2 (16:51→21:01)
[2021-04-09] MEDS: ACCU-CHEK COMFORT CURVE STRIP VI SCH ×2 (16:55→21:00)
[2021-04-09 20:30] VITALS: BP 123/75
[2021-04-09] MEDS ORDERED: INSU100I43 SC (21:02)
[2021-04-09] MEDS ORDERED: LEVO50TA7 PO (21:02)
[2021-04-09] MEDS ORDERED: MESA10003 PO (21:02)
[2021-04-09] MEDS ORDERED: PANT1INJ3 PO (21:02)
[2021-04-09] MEDS ORDERED: ALLO100T PO (21:02)
[2021-04-09] MEDS ORDERED: ROSU1TAB15 PO (21:02)
[2021-04-09] MEDS ORDERED: SODI650T PO (21:02)
[2021-04-09] MEDS ORDERED: METO25TA93 PO (21:02)
[2021-04-09] MEDS ORDERED: INSUINJ37 SC (21:02)
[2021-04-09] MEDS ORDERED: ASPI325T4 PO (21:02)
[2021-04-09 22:00] VITALS: BP 158/93
[2021-04-09] MEDS: MORPHINE SULFATE INJECTION 2 MG/ML SYRG IV PRN (22:24)
[2021-04-10 05:00] VITALS: BP 129/71
[2021-04-10] MEDS: metroNIDAZOLE 500MG/100ML 100 ML IV SCH ×2 (05:11→14:29)
[2021-04-10 05:44] LABS: Basophils # (auto) 0.1 10 ^3/uL (0-0.2); Basophils % (auto) 0.9 % (0.0-2.0); Eosinophils # (auto) 0.2 10 ^3/uL (0-0.8); Eosinophils % (auto) 1.5 % (0.0-7.0); Hematocrit 48.2 % (41.0-53.0); Lymphocytes # (auto) 1.5 10 ^3/uL (0.4-5.4); Lymphocytes % (auto) 12.5 % (10.0-50.0); Mean Corpuscular Hemoglobin 31.5 pg (28.0-32.0); Mean Corpuscular Hgb Conc. 35.2 g/dL (32.0-36.0); Mean Corpuscular Volume 89.3 fL (80.0-100.0); Monocytes # (auto) 0.8 10 ^3/uL (0-1.3); Monocytes % (auto) 6.6 % (0.0-12.0); Neutrophils # (auto) 9.5 10 ^3/uL (1.6-8.6); Neutrophils % (auto) 78.5 % (37.0-80.0); Nucleated Red Blood Cells % 0.1 %; Red Cell Distribution Width 13.8 % (11.8-14.3); White Blood Cell 12.1 10^3/uL (4.4-10.8)
[2021-04-10] MEDS: ACCU-CHEK COMFORT CURVE STRIP VI SCH ×2 (06:04→11:26)
[2021-04-10 06:06] LABS: Calcium 8.5 mg/dL (8.5-10.1); Potassium 3.2 mmol/L (3.5-5.1)
[2021-04-10 06:15] LABS: BUN/Creatinine Ratio 14.8
[2021-04-10] MEDS: InsuLIN REG 1unit/0.01ml Soln (100units/ml) SC SCH ×2 (06:28→11:35)
[2021-04-10 08:58] VITALS: BP 133/98
[2021-04-10] MEDS: SODIUM CHLORIDE 0.9% 1,000 ML IV SCH ×2 (09:59)
[2021-04-10] MEDS ORDERED: levoFLOXacin 250MG 50 ML IV SCH (10:00)
[2021-04-10] MEDS: MORPHINE SULFATE INJECTION 2 MG/ML SYRG IV PRN (11:36)
[2021-04-10 12:33] VITALS: BP 118/67
[2021-04-10] MEDS ORDERED: POTASSIUM EFFERVESENT TAB 25 MEQ PO ONE (15:15)
== END 2021-04-10 18:50 | disposition home or self-care (01) | DRG 391 ==
LOC: ER 07:42 → EDBD 07:42 → TELE 14:46 → TELE-CENTR 19:43
PROVIDERS: ADMIT Nurse Practitioner Acute Care; ATTEND Nurse Practitioner Acute Care
DX: K52.9 Noninfective gastroenteritis and colitis, unspecified (principal); N17.0 Acute kidney failure with tubular necrosis; E44.0 Moderate protein-calorie malnutrition; E87.1 Hypo-osmolality and hyponatremia; E03.9 Hypothyroidism, unspecified; E11.22 Type 2 diabetes mellitus with diabetic chronic kidney disease; E66.9 Obesity, unspecified; E78.5 Hyperlipidemia, unspecified; I25.10 Atherosclerotic heart disease of native coronary artery without angina pectoris; N18.32 Chronic kidney disease, stage 3b; I12.9 Hypertensive chronic kidney disease with stage 1 through stage 4 chronic kidney disease, or unspecified chronic kidney disease; N40.0 Benign prostatic hyperplasia without lower urinary tract symptoms; Z79.4 Long term (current) use of insulin; Z79.82 Long term (current) use of aspirin; Z82.49 Family history of ischemic heart disease and other diseases of the circulatory system; Z83.3 Family history of diabetes mellitus; Z91.14 Patient's other noncompliance with medication regimen; E87.6 Hypokalemia; M10.9 Gout, unspecified; Z79.899 Other long term (current) drug therapy; Z20.822 Contact with and (suspected) exposure to COVID-19; Z68.27 Body mass index [BMI] 27.0-27.9, adult
CPT/HCPCS: 36415; 71045; 74176; 80048; 80053; 81001; 82962; 83036; 83690; 83735; 84443; 85025; 87040; 87426; 93005; 96365; 96366; 96368; 96375; G0378; J1815; J1956; J3490

== ENCOUNTER 2021-05-18 17:53 | Inpatient (IN) | payer OTHER, MEDICAID ==
[~2021-05-18] VITALS: Ht 162.6 cm; Wt 73.5 kg
[~2021-05-18 17:53] MED LIST changes: +ALLO100T PO; +ASPI325T4 PO; +INSU100I43 SC; +INSUINJ37 SC; +LEVO50TA7 PO; +MESA10003 PO; +PANT1INJ3 PO; -PANT40TA2 PO; -PRED10TA PO; +ROSU1TAB15 PO; +SODI650T PO
[2021-05-18 19:04] LABS: Basophils # (auto) 0.1 10 ^3/uL (0-0.2); Basophils % (auto) 0.9 % (0.0-2.0); Eosinophils # (auto) 0.2 10 ^3/uL (0-0.8); Eosinophils % (auto) 1.5 % (0.0-7.0); Hematocrit 43.1 % (41.0-53.0); Lymphocytes # (auto) 3.1 10 ^3/uL (0.4-5.4); Lymphocytes % (auto) 26.4 % (10.0-50.0); Mean Corpuscular Hemoglobin 29.9 pg (28.0-32.0); Mean Corpuscular Hgb Conc. 32.6 g/dL (32.0-36.0); Mean Corpuscular Volume 91.8 fL (80.0-100.0); Monocytes # (auto) 0.9 10 ^3/uL (0-1.3); Monocytes % (auto) 7.3 % (0.0-12.0); Neutrophils # (auto) 7.5 10 ^3/uL (1.6-8.6); Neutrophils % (auto) 63.9 % (37.0-80.0); Nucleated Red Blood Cells % 0.1 %; Red Blood Cells 4.69 10^6/uL (4.5-5.90); Red Cell Distribution Width 14.8 % (11.8-14.3); White Blood Cell 11.8 10^3/uL (4.4-10.8)
[2021-05-18 19:21] LABS: Calcium 8.7 mg/dL (8.5-10.1); Chloride 109 mmol/L (98-107); Potassium 3.1 mmol/L (3.5-5.1); Sodium 142 mmol/L (136-145)
[2021-05-18 19:29] LABS: Alanine Aminotransferase 47 U/L (16-61); Albumin 2.6 g/dL (3.4-5.0); Alkaline Phosphatase 95 U/L (45-117); Anion Gap 10 (5-15); Aspartate Aminotransferase 53 U/L (15-37); BUN/Creatinine Ratio 6.6; Bilirubin, Total 0.5 mg/dL (0.2-1.0); Blood Urea Nitrogen 16 mg/dL (7-18); Carbon Dioxide 23 mmol/L (21-32); GFR African American 35 mL/min; GFR Non-African American 29 mL/min; Glucose 92 mg/dL (74-106); Total Protein 7.1 g/dL (6.4-8.2)
[2021-05-18] MEDS ORDERED: SODIUM CHLORIDE 0.9% 1,000 ML IV ONE (21:15)
[2021-05-18] MEDS ORDERED: POTASSIUM CHL 20MEQ/100ML 100 ML IV ONE (21:15)
[2021-05-18] MEDS ORDERED: LACTATED RINGER'S 1,000 ML IV ONE (21:15)
[2021-05-18] MEDS ORDERED: POTASSIUM EFFERVESENT TAB 25 MEQ PO ONE (21:15)
[2021-05-18 21:51] LABS: Lipase 161 U/L (73-393)
[2021-05-18 21:55] LABS: Creatine Kinase IFCC 92 U/L (39-308)
[2021-05-19] MEDS ORDERED: SODIUM CHLORIDE 0.9% 1,000 ML IV ONE (01:45)
[2021-05-19 02:20] LABS: Urine Bacteria NONE SEEN /hpf (None Seen); Urine Blood Negative /uL (Negative); Urine WBC 1 /hpf (0 - 3)
[2021-05-19] MEDS ORDERED: TEMAZEPAM 15 MG CAP PO PRN (03:00)
[2021-05-19] MEDS ORDERED: MORPHINE SULFATE INJECTION 2 MG/ML SYRG IV PRN (03:00)
[2021-05-19] MEDS ORDERED: NITROGLYCERIN 0.4 MG SL TAB SL PRN (03:00)
[2021-05-19] MEDS ORDERED: ACETAMINOPHEN 325 MG TAB PO PRN (03:00)
[2021-05-19] MEDS ORDERED: ALBUMIN 5% 250 ML IV ONE (03:00)
[2021-05-19] MEDS ORDERED: DEXTROSE (50%) 50ML SYRG IV PRN (03:00)
[2021-05-19] MEDS ORDERED: ONDANSETRON HCL 4 MG/2 ML VIAL IV PRN (03:00)
[2021-05-19] MEDS: LEVOTHYROXINE SODIUM 50 MCG TAB PO SCH (06:47)
[2021-05-19] MEDS: InsuLIN REG 1unit/0.01ml Soln (100units/ml) SC SCH ×4 (06:48→21:03)
[2021-05-19] MEDS: ACCU-CHEK COMFORT CURVE STRIP VI SCH ×4 (06:48→21:03)
[2021-05-19] MEDS ORDERED: ADENOSINE 59 MG in GIVE UN-DILUTED 0 ML IV STA (08:52)
[2021-05-19] MEDS: ASPirin 81 mg TAB PO SCH (09:59)
[2021-05-19] MEDS ORDERED: ENOXAPARIN SOD 40 MG/0.4 ML SYRINGE SC SCH (10:00)
[2021-05-19 10:03] LABS: Cholesterol 92 mg/dL (< 200)
[2021-05-19] MEDS: PANTOPRAZOLE 40 MG TAB PO SCH (10:04)
[2021-05-19] MEDS: ENOXAPARIN SOD 30 MG/0.3 ML SYRINGE SC SCH (10:04)
[2021-05-19] MEDS: GEMFIBROZIL 600 MG TAB PO SCH ×2 (10:04→21:03)
[2021-05-19 10:06] LABS: HDL Cholesterol 22 mg/dL (40-59); LDL Cholesterol 49 mg/dL (< 100); Triglycerides 145 mg/dL (< 150)
[2021-05-19 11:22] LABS: BUN/Creatinine Ratio 6.8; Calcium 8.4 mg/dL (8.5-10.1); Potassium 3.6 mmol/L (3.5-5.1)
[2021-05-19 11:39] LABS: Amphetamine Screen, Urine NEGATIVE (NEGATIVE); Barbiturate Scree,Urine NEGATIVE (NEGATIVE); Benzodiazephine Screen, Urine NEGATIVE (NEGATIVE); Cannabinoid Screen, Urine NEGATIVE (NEGATIVE); Cocaine Screen, Urine NEGATIVE (NEGATIVE); Opiate Scree,Urine NEGATIVE (NEGATIVE); Phencyclidine Screen, Urine NEGATIVE (NEGATIVE)
[2021-05-19] MEDS: SODIUM CHLORIDE 0.9% 1,000 ML IV SCH ×2 (16:00→20:00)
[2021-05-19] MEDS ORDERED: LORazepam 2MG/ML-1ML VIAL IV PRN (21:30)
[2021-05-19] MEDS ORDERED: INSU1INJ19 SC (21:38)
[2021-05-19] MEDS ORDERED: DICY20TA PO (21:39)
[2021-05-19] MEDS ORDERED: NITR0.4S29 SL (21:39)
[2021-05-19] MEDS ORDERED: CIPR-173 PO (21:40)
[2021-05-19 22:00] VITALS: BP 100/60
[2021-05-19 23:47] VITALS: BP_SYST 125; BP_SYST 86; BP_SYST 98; BP_DIAS 53; BP_DIAS 59; BP_DIAS 63
[2021-05-20 05:00] VITALS: BP 101/55
[2021-05-20] MEDS: InsuLIN REG 1unit/0.01ml Soln (100units/ml) SC SCH ×4 (06:06→21:18)
[2021-05-20] MEDS: LEVOTHYROXINE SODIUM 50 MCG TAB PO SCH (06:06)
[2021-05-20] MEDS: ACCU-CHEK COMFORT CURVE STRIP VI SCH ×4 (06:06→21:19)
[2021-05-20 09:00] VITALS: BP 112/71
[2021-05-20] MEDS ORDERED: ADENOSINE 60 MG in GIVE UN-DILUTED 0 ML IV ONE (09:15)
[2021-05-20] MEDS: ASPirin 81 mg TAB PO SCH (10:00)
[2021-05-20] MEDS: ENOXAPARIN SOD 30 MG/0.3 ML SYRINGE SC SCH (10:00)
[2021-05-20] MEDS: PANTOPRAZOLE 40 MG TAB PO SCH (10:00)
[2021-05-20] MEDS: GEMFIBROZIL 600 MG TAB PO SCH ×2 (10:00→21:18)
[2021-05-20 11:15] LABS: Basophils # (auto) 0.1 10 ^3/uL (0-0.2); Basophils % (auto) 1.3 % (0.0-2.0); Eosinophils # (auto) 0.2 10 ^3/uL (0-0.8); Eosinophils % (auto) 2.7 % (0.0-7.0); Hematocrit 43.6 % (41.0-53.0); Hemoglobin 14.2 g/dL (13.5-17.5); Lymphocytes # (auto) 2.1 10 ^3/uL (0.4-5.4); Lymphocytes % (auto) 30.3 % (10.0-50.0); Mean Corpuscular Hemoglobin 30.5 pg (28.0-32.0); Mean Corpuscular Hgb Conc. 32.7 g/dL (32.0-36.0); Mean Corpuscular Volume 93.3 fL (80.0-100.0); Monocytes # (auto) 0.5 10 ^3/uL (0-1.3); Monocytes % (auto) 7.5 % (0.0-12.0); Neutrophils # (auto) 4.1 10 ^3/uL (1.6-8.6); Neutrophils % (auto) 58.2 % (37.0-80.0); Red Blood Cells 4.67 10^6/uL (4.5-5.90); Red Cell Distribution Width 15.1 % (11.8-14.3)
[2021-05-20 11:30] LABS: BUN/Creatinine Ratio 5.9; Calcium 8.9 mg/dL (8.5-10.1)
[2021-05-20 11:32] LABS: Potassium 4.1 mmol/L (3.5-5.1)
[2021-05-20 13:00] VITALS: BP 131/79
[2021-05-20 16:53] VITALS: BP 132/86
[2021-05-20] MEDS: TAMSULOSIN HYDROCHLORIDE 0.4 MG CAP PO SCH (18:00)
[2021-05-20] MEDS: ATORVASTATIN 20 MG TAB PO SCH (21:18)
[2021-05-20] MEDS: INSULIN LANTUS (GLARGINE) 1 /0.01ml (100units/ml) SC SCH (21:18)
[2021-05-20 22:00] VITALS: BP 106/71
[2021-05-21 05:00] VITALS: BP 109/66
[2021-05-21] MEDS: InsuLIN REG 1unit/0.01ml Soln (100units/ml) SC SCH ×4 (05:50→21:52)
[2021-05-21] MEDS: LEVOTHYROXINE SODIUM 50 MCG TAB PO SCH (05:50)
[2021-05-21] MEDS: ACCU-CHEK COMFORT CURVE STRIP VI SCH ×4 (05:50→21:52)
[2021-05-21 08:45] VITALS: BP 132/93
[2021-05-21] MEDS: ASPirin 81 mg TAB PO SCH (10:00)
[2021-05-21] MEDS: GEMFIBROZIL 600 MG TAB PO SCH ×2 (10:00→21:51)
[2021-05-21] MEDS: PANTOPRAZOLE 40 MG TAB PO SCH (10:00)
[2021-05-21 12:35] VITALS: BP_SYST 106; BP_SYST 113; BP_SYST 83; BP_DIAS 67; BP_DIAS 69
[2021-05-21 12:58] VITALS: BP 139/67
[2021-05-21] MEDS: SODIUM CHLORIDE 0.9% 1,000 ML IV SCH (13:00)
[2021-05-21 17:00] VITALS: BP 95/76
[2021-05-21] MEDS: TAMSULOSIN HYDROCHLORIDE 0.4 MG CAP PO SCH (18:00)
[2021-05-21] MEDS: ATORVASTATIN 20 MG TAB PO SCH (21:51)
[2021-05-21] MEDS: MUPIROCIN 2% OINT 15gm or 22gm EACHNOSTRI SCH (21:51)
[2021-05-21 22:00] VITALS: BP 107/65
[2021-05-21] MEDS: INSULIN LANTUS (GLARGINE) 1 /0.01ml (100units/ml) SC SCH (22:00)
[2021-05-22 05:00] VITALS: BP_SYST 115; BP_SYST 84; BP_SYST 89; BP_DIAS 60; BP_DIAS 62; BP_DIAS 67
[2021-05-22] MEDS: SODIUM CHLORIDE 0.9% 1,000 ML IV SCH ×2 (05:10→22:20)
[2021-05-22 05:24] LABS: Calcium 8.9 mg/dL (8.5-10.1); Magnesium 2.4 mg/dL (1.6-2.6)
[2021-05-22 05:26] LABS: BUN/Creatinine Ratio 7.8
[2021-05-22] MEDS: LEVOTHYROXINE SODIUM 50 MCG TAB PO SCH (06:20)
[2021-05-22] MEDS: ACCU-CHEK COMFORT CURVE STRIP VI SCH ×4 (06:21→22:28)
[2021-05-22] MEDS: InsuLIN REG 1unit/0.01ml Soln (100units/ml) SC SCH ×4 (06:21→22:00)
[2021-05-22 09:00] VITALS: BP 129/78
[2021-05-22] MEDS: ASPirin 81 mg TAB PO SCH (09:54)
[2021-05-22] MEDS: PANTOPRAZOLE 40 MG TAB PO SCH (09:54)
[2021-05-22] MEDS: GEMFIBROZIL 600 MG TAB PO SCH ×2 (09:54→21:24)
[2021-05-22] MEDS: MUPIROCIN 2% OINT 15gm or 22gm EACHNOSTRI SCH ×2 (09:54→21:24)
[2021-05-22] MEDS: ENOXAPARIN SOD 40 MG/0.4 ML SYRINGE SC SCH (09:55)
[2021-05-22 12:36] VITALS: BP 122/83
[2021-05-22] MEDS: TAMSULOSIN HYDROCHLORIDE 0.4 MG CAP PO SCH (17:42)
[2021-05-22] MEDS: ATORVASTATIN 20 MG TAB PO SCH (21:23)
[2021-05-22 22:00] VITALS: BP 103/58
[2021-05-22] MEDS: INSULIN LANTUS (GLARGINE) 1 /0.01ml (100units/ml) SC SCH (22:31)
[2021-05-23 05:00] VITALS: BP_SYST 104; BP_SYST 82; BP_SYST 88; BP_DIAS 62; BP_DIAS 63; BP_DIAS 64
[2021-05-23] MEDS: InsuLIN REG 1unit/0.01ml Soln (100units/ml) SC SCH ×2 (06:11→12:03)
[2021-05-23] MEDS: LEVOTHYROXINE SODIUM 50 MCG TAB PO SCH (06:11)
[2021-05-23] MEDS: ACCU-CHEK COMFORT CURVE STRIP VI SCH ×2 (06:12→11:30)
[2021-05-23 06:21] LABS: BUN/Creatinine Ratio 10.4; Calcium 8.6 mg/dL (8.5-10.1); Potassium 4.1 mmol/L (3.5-5.1)
[2021-05-23 09:00] VITALS: BP 129/83
[2021-05-23 09:49] VITALS: BP 131/73
[2021-05-23 09:50] VITALS: BP 159/69
[2021-05-23] MEDS: PANTOPRAZOLE 40 MG TAB PO SCH (10:24)
[2021-05-23] MEDS: ASPirin 81 mg TAB PO SCH (10:24)
[2021-05-23] MEDS: ENOXAPARIN SOD 40 MG/0.4 ML SYRINGE SC SCH (10:25)
[2021-05-23] MEDS: GEMFIBROZIL 600 MG TAB PO SCH (10:25)
[2021-05-23] MEDS: MUPIROCIN 2% OINT 15gm or 22gm EACHNOSTRI SCH (10:26)
[2021-05-23 13:21] VITALS: BP 131/75
== END 2021-05-23 15:00 | disposition home or self-care (01) | DRG 64 ==
LOC: EDBD 17:53 → ER 17:53 → TELE 05-19 02:48 → TELE-WESTW 05-19 18:27
PROVIDERS: ADMIT Nurse Practitioner; ATTEND Internal Medicine
DX: I63.9 Cerebral infarction, unspecified (principal); E43 Unspecified severe protein-calorie malnutrition; N17.0 Acute kidney failure with tubular necrosis; S02.85XA Fracture of orbit, unspecified, initial encounter for closed fracture; K50.90 Crohn's disease, unspecified, without complications; I95.1 Orthostatic hypotension; E03.9 Hypothyroidism, unspecified; E11.22 Type 2 diabetes mellitus with diabetic chronic kidney disease; Z20.822 Contact with and (suspected) exposure to COVID-19; E11.42 Type 2 diabetes mellitus with diabetic polyneuropathy; E78.00 Pure hypercholesterolemia, unspecified; E78.5 Hyperlipidemia, unspecified; E86.0 Dehydration; E87.6 Hypokalemia; F17.200 Nicotine dependence, unspecified, uncomplicated; I12.9 Hypertensive chronic kidney disease with stage 1 through stage 4 chronic kidney disease, or unspecified chronic kidney disease; I25.10 Atherosclerotic heart disease of native coronary artery without angina pectoris; I70.0 Atherosclerosis of aorta; K57.30 Diverticulosis of large intestine without perforation or abscess without bleeding; W18.39XA Other fall on same level, initial encounter; N18.32 Chronic kidney disease, stage 3b; N20.0 Calculus of kidney; N40.0 Benign prostatic hyperplasia without lower urinary tract symptoms; M10.9 Gout, unspecified; K21.9 Gastro-esophageal reflux disease without esophagitis; Z79.4 Long term (current) use of insulin; Z79.899 Other long term (current) drug therapy; Z82.49 Family history of ischemic heart disease and other diseases of the circulatory system; Z83.3 Family history of diabetes mellitus; Z95.1 Presence of aortocoronary bypass graft; Y93.89 Activity, other specified; Y92.098 Other place in other non-institutional residence as the place of occurrence of the external cause; Y99.8 Other external cause status
CPT/HCPCS: 36415; 70450; 70551; 71045; 72125; 74176; 78452; 78582; 80048; 80053; 80061; 80307; 81001; 82533; 82550; 82565; 82962; 83036; 83605; 83690; 83735; 83880; 84443; 84484; 85025; 85379; 87040; 87081; 87426; 93005; 93017; 93306; 93886; 93970; 95819; 96361; 96365; G0378; J0153; J1815; J3480

== ENCOUNTER 2022-06-28 20:15 | Inpatient (IN) | payer OTHER, MEDICAID ==
[~2022-06-28] VITALS: Ht 172.7 cm; Wt 75.5 kg
[~2022-06-28 20:15] MED LIST changes: -ASPI325T4 PO; +DICY20TA PO; -FURO40TA4 PO; -HYDR50TA15 PO; +INSU1INJ19 SC; -METO25TA93 PO
[2022-06-28] MEDS ORDERED: SODIUM CHLORIDE 0.9% 1,000 ML IV ONE ×2 (21:15→22:15)
[2022-06-28 22:13] LABS: Basophils # (auto) 0.1 10 ^3/uL (0-0.2); Basophils % (auto) 0.9 % (0.0-2.0); Eosinophils # (auto) 0 10 ^3/uL (0-0.8); Monocytes # (auto) 0.8 10 ^3/uL (0-1.3); Monocytes % (auto) 7.3 % (0.0-12.0); Neutrophils # (auto) 7.8 10 ^3/uL (1.6-8.6); Nucleated Red Blood Cells % 0.1 %
[2022-06-28 22:15] LABS: Eosinophils % (auto) 0.2 % (0.0-7.0); Hematocrit 51.1 % (41.0-53.0); Lymphocytes # (auto) 1.8 10 ^3/uL (0.4-5.4); Lymphocytes % (auto) 17.2 % (10.0-50.0); Mean Corpuscular Hemoglobin 31.1 pg (28.0-32.0); Mean Corpuscular Hgb Conc. 35.2 g/dL (32.0-36.0); Mean Corpuscular Volume 88.4 fL (80.0-100.0); Neutrophils % (auto) 74.4 % (37.0-80.0); Red Blood Cells 5.78 10^6/uL (4.5-5.90); Red Cell Distribution Width 14.2 % (11.8-14.3); White Blood Cell 10.5 10^3/uL (4.4-10.8)
[2022-06-28] MEDS ORDERED: PIPERACILLIN-TAZOB 3.375GM 100 ML IV ONE (22:15)
[2022-06-28 22:24] LABS: INR 1.08 (0.9-1.15); Partial Thromboplastin Time 34.9 sec (24.6-33.4)
[2022-06-28 22:27] LABS: Albumin 3.1 g/dL (3.4-5.0); Calcium 9.1 mg/dL (8.5-10.1); Magnesium 1.8 mg/dL (1.6-2.6); Potassium 4.2 mmol/L (3.5-5.1)
[2022-06-28 22:30] LABS: BUN/Creatinine Ratio 9.7
[2022-06-28] MEDS ORDERED: ACETAMINOPHEN 325 MG TAB PO ONE (23:45)
[2022-06-28] MEDS ORDERED: HYDROmorphone HCL 2 MG/ML VL/or syr IV ONE (23:45)
[2022-06-29] MEDS ORDERED: DEXTROSE (50%) 50ML SYRG IV PRN (01:00)
[2022-06-29] MEDS ORDERED: ONDANSETRON HCL 4 MG/2 ML VIAL IV PRN (01:00)
[2022-06-29] MEDS ORDERED: ACETAMINOPHEN 325 MG TAB PO PRN (01:00)
[2022-06-29 02:18] LABS: Urine Bacteria FEW /hpf (None Seen); Urine WBC 1 /hpf (0 - 3)
[2022-06-29 02:19] LABS: Urine Blood 2+ /uL (Negative)
[2022-06-29 02:37] LABS: Alcohol, Urine < 3.0 mg/dL (0-10); Amphetamine Screen, Urine POSITIVE (NEGATIVE); Barbiturate Scree,Urine NEGATIVE (NEGATIVE); Benzodiazephine Screen, Urine NEGATIVE (NEGATIVE); Cannabinoid Screen, Urine NEGATIVE (NEGATIVE); Cocaine Screen, Urine NEGATIVE (NEGATIVE); Opiate Scree,Urine NEGATIVE (NEGATIVE); Phencyclidine Screen, Urine NEGATIVE (NEGATIVE)
[2022-06-29] MEDS: HYDROcodone-ACET 5/325MG TAB PO PRN ×2 (02:50→22:38)
[2022-06-29] MEDS: SODIUM CHLORIDE 0.9% 1,000 ML IV SCH ×3 (02:51→17:40)
[2022-06-29] MEDS: CLINDAMYCIN 600MG IV 50 ML IV SCH ×3 (06:46→22:25)
[2022-06-29] MEDS: ACCU-CHEK COMFORT CURVE STRIP VI SCH ×4 (08:57→22:11)
[2022-06-29] MEDS: cefTRIAXone 1GM/50ML D5W 50 ML IV SCH (09:31)
[2022-06-29] MEDS: LEVOTHYROXINE SODIUM 50 MCG TAB PO SCH (10:03)
[2022-06-29] MEDS: SODIUM BICARBONATE 650 MG TAB PO SCH ×2 (10:04→22:25)
[2022-06-29] MEDS: ASPirin 81 mg TAB PO SCH (10:04)
[2022-06-29] MEDS: GEMFIBROZIL 600 MG TAB PO SCH ×2 (10:04→22:26)
[2022-06-29] MEDS: METOPROLOL SUCCINATE XL 50 MG TAB PO SCH (10:06)
[2022-06-29] MEDS: InsuLIN REG 1unit/0.01ml Soln (100units/ml) SC SCH ×3 (11:30→22:00)
[2022-06-29] MEDS: TAMSULOSIN HYDROCHLORIDE 0.4 MG CAP PO SCH (18:14)
[2022-06-29 22:00] VITALS: BP 154/104
[2022-06-29] MEDS: ATORVASTATIN 20 MG TAB PO SCH (22:25)
[2022-06-30 05:00] VITALS: BP 139/91
[2022-06-30] MEDS: CLINDAMYCIN 600MG IV 50 ML IV SCH ×3 (06:00→21:22)
[2022-06-30] MEDS: LEVOTHYROXINE SODIUM 50 MCG TAB PO SCH (06:22)
[2022-06-30] MEDS: ACCU-CHEK COMFORT CURVE STRIP VI SCH ×4 (06:23→21:22)
[2022-06-30] MEDS: InsuLIN REG 1unit/0.01ml Soln (100units/ml) SC SCH ×4 (06:24→21:03)
[2022-06-30 06:26] LABS: BUN/Creatinine Ratio 11.5; Calcium 9.1 mg/dL (8.5-10.1)
[2022-06-30 06:53] LABS: Basophils # (auto) 0.1 10 ^3/uL (0-0.2); Basophils % (auto) 1.3 % (0.0-2.0); Eosinophils # (auto) 0.1 10 ^3/uL (0-0.8); Eosinophils % (auto) 1.3 % (0.0-7.0); Hematocrit 51.4 % (41.0-53.0); Hemoglobin 17.4 g/dL (13.5-17.5); Lymphocytes # (auto) 2.7 10 ^3/uL (0.4-5.4); Lymphocytes % (auto) 37.9 % (10.0-50.0); Mean Corpuscular Hgb Conc. 33.8 g/dL (32.0-36.0); Mean Corpuscular Volume 91.6 fL (80.0-100.0); Monocytes % (auto) 14.3 % (0.0-12.0); Neutrophils # (auto) 3.2 10 ^3/uL (1.6-8.6); Neutrophils % (auto) 45.2 % (37.0-80.0); Nucleated Red Blood Cells % 0.3 %; Red Blood Cells 5.61 10^6/uL (4.5-5.90); Red Cell Distribution Width 14.3 % (11.8-14.3); White Blood Cell 7.1 10^3/uL (4.4-10.8)
[2022-06-30 08:00] VITALS: BP 143/89
[2022-06-30] MEDS: cefTRIAXone 1GM/50ML D5W 50 ML IV SCH (10:06)
[2022-06-30] MEDS: ASPirin 81 mg TAB PO SCH (10:07)
[2022-06-30] MEDS: SODIUM BICARBONATE 650 MG TAB PO SCH ×2 (10:07→21:22)
[2022-06-30] MEDS: METOPROLOL SUCCINATE XL 50 MG TAB PO SCH (10:07)
[2022-06-30] MEDS: GEMFIBROZIL 600 MG TAB PO SCH ×2 (10:07→21:22)
[2022-06-30 12:00] VITALS: BP 133/93
[2022-06-30] MEDS ORDERED: MEROPENEM 1GM IVPB 100 ML IV ONE ×2 (12:30→13:00)
[2022-06-30 16:00] VITALS: BP 109/68
[2022-06-30] MEDS: SODIUM CHLORIDE 0.9% 1,000 ML IV SCH (17:19)
[2022-06-30] MEDS: TAMSULOSIN HYDROCHLORIDE 0.4 MG CAP PO SCH (18:07)
[2022-06-30] MEDS: ATORVASTATIN 20 MG TAB PO SCH (21:22)
[2022-06-30 22:00] VITALS: BP 132/81
[2022-06-30] MEDS: MEROPENEM 1GM IVPB 100 ML IV SCH (22:40)
[2022-06-30] MEDS: DAKINS QUARTER STR 0.125% (NaHypochlorite) 473 ML TOPICAL SOL TOP SCH (22:40)
[2022-07-01 05:00] VITALS: BP 137/78
[2022-07-01] MEDS: CLINDAMYCIN 600MG IV 50 ML IV SCH ×2 (05:52→18:06)
[2022-07-01] MEDS: InsuLIN REG 1unit/0.01ml Soln (100units/ml) SC SCH ×4 (05:52→21:48)
[2022-07-01] MEDS: LEVOTHYROXINE SODIUM 50 MCG TAB PO SCH (05:52)
[2022-07-01] MEDS: ACCU-CHEK COMFORT CURVE STRIP VI SCH ×4 (05:53→21:48)
[2022-07-01 08:00] VITALS: BP 125/92
[2022-07-01] MEDS: SODIUM CHLORIDE 0.9% 1,000 ML IV SCH ×2 (09:37→19:40)
[2022-07-01] MEDS: SODIUM BICARBONATE 650 MG TAB PO SCH ×2 (09:38→21:46)
[2022-07-01] MEDS: GEMFIBROZIL 600 MG TAB PO SCH ×2 (09:38→21:46)
[2022-07-01] MEDS: ASPirin 81 mg TAB PO SCH (09:38)
[2022-07-01] MEDS: DAKINS QUARTER STR 0.125% (NaHypochlorite) 473 ML TOPICAL SOL TOP SCH ×2 (09:38→22:00)
[2022-07-01] MEDS: METOPROLOL SUCCINATE XL 50 MG TAB PO SCH (09:39)
[2022-07-01] MEDS: MEROPENEM 1GM IVPB 100 ML IV SCH ×2 (10:51→21:47)
[2022-07-01 12:00] VITALS: BP 140/91
[2022-07-01 16:00] VITALS: BP 119/79
[2022-07-01] MEDS: TAMSULOSIN HYDROCHLORIDE 0.4 MG CAP PO SCH (18:06)
[2022-07-01] MEDS: ATORVASTATIN 20 MG TAB PO SCH (21:47)
[2022-07-01 22:00] VITALS: BP 131/89
[2022-07-02] MEDS: CLINDAMYCIN 600MG IV 50 ML IV SCH ×2 (00:41→06:10)
[2022-07-02 05:00] VITALS: BP 113/83
[2022-07-02] MEDS: InsuLIN REG 1unit/0.01ml Soln (100units/ml) SC SCH ×4 (06:10→22:00)
[2022-07-02] MEDS: LEVOTHYROXINE SODIUM 50 MCG TAB PO SCH (06:10)
[2022-07-02] MEDS: ACCU-CHEK COMFORT CURVE STRIP VI SCH ×4 (06:11→22:00)
[2022-07-02 07:17] LABS: Basophils # (auto) 0.1 10 ^3/uL (0-0.2); Eosinophils # (auto) 0.2 10 ^3/uL (0-0.8); Monocytes # (auto) 0.6 10 ^3/uL (0-1.3); Neutrophils # (auto) 3.3 10 ^3/uL (1.6-8.6)
[2022-07-02 07:19] LABS: Basophils % (auto) 1.1 % (0.0-2.0); Eosinophils % (auto) 2.7 % (0.0-7.0); Hematocrit 53.8 % (41.0-53.0); Hemoglobin 18.2 g/dL (13.5-17.5); Lymphocytes # (auto) 2.5 10 ^3/uL (0.4-5.4); Mean Corpuscular Hemoglobin 31.1 pg (28.0-32.0); Mean Corpuscular Hgb Conc. 33.8 g/dL (32.0-36.0); Mean Corpuscular Volume 91.9 fL (80.0-100.0); Monocytes % (auto) 8.7 % (0.0-12.0); Neutrophils % (auto) 49.5 % (37.0-80.0); Red Blood Cells 5.86 10^6/uL (4.5-5.90); Red Cell Distribution Width 14.1 % (11.8-14.3); White Blood Cell 6.6 10^3/uL (4.4-10.8)
[2022-07-02 07:36] LABS: BUN/Creatinine Ratio 17.5; Magnesium 2.6 mg/dL (1.6-2.6); Phosphorus 3.4 mg/dL (2.5-4.90); Potassium 5.2 mmol/L (3.5-5.1)
[2022-07-02 09:00] VITALS: BP 113/75
[2022-07-02] MEDS: DAKINS QUARTER STR 0.125% (NaHypochlorite) 473 ML TOPICAL SOL TOP SCH (10:00)
[2022-07-02] MEDS: SODIUM BICARBONATE 650 MG TAB PO SCH ×2 (10:55→22:35)
[2022-07-02] MEDS: MEROPENEM 1GM IVPB 100 ML IV SCH (10:56)
[2022-07-02] MEDS: ASPirin 81 mg TAB PO SCH (10:56)
[2022-07-02] MEDS: GEMFIBROZIL 600 MG TAB PO SCH ×2 (10:56→22:35)
[2022-07-02] MEDS: SODIUM CHLORIDE 0.9% 1,000 ML IV SCH (10:56)
[2022-07-02] MEDS: METOPROLOL SUCCINATE XL 50 MG TAB PO SCH (11:27)
[2022-07-02] MEDS ORDERED: VANCOMYCIN PER PHARMACY 0 MG IV SCH (12:03)
[2022-07-02] MEDS ORDERED: VANCOMYCIN 1GM/250ML 250 ML IV ONE (12:45)
[2022-07-02] MEDS: cefTRIAXone 1GM/50ML D5W 50 ML IV SCH (13:34)
[2022-07-02 14:09] VITALS: BP 112/75
[2022-07-02 16:46] VITALS: BP 126/84
[2022-07-02] MEDS: TAMSULOSIN HYDROCHLORIDE 0.4 MG CAP PO SCH (18:23)
[2022-07-02 22:00] VITALS: BP 118/66
[2022-07-02] MEDS: ATORVASTATIN 20 MG TAB PO SCH (22:35)
[2022-07-03 05:00] VITALS: BP 158/94
[2022-07-03] MEDS ORDERED: hydrALAZINE HCL 20 MG/ML VL IV ONE (06:30)
[2022-07-03] MEDS: LEVOTHYROXINE SODIUM 50 MCG TAB PO SCH (06:31)
[2022-07-03] MEDS: ACCU-CHEK COMFORT CURVE STRIP VI SCH ×4 (06:31→23:18)
[2022-07-03] MEDS: InsuLIN REG 1unit/0.01ml Soln (100units/ml) SC SCH ×4 (06:32→22:00)
[2022-07-03 09:00] VITALS: BP 141/97
[2022-07-03] MEDS: ASPirin 81 mg TAB PO SCH (09:34)
[2022-07-03] MEDS: cefTRIAXone 1GM/50ML D5W 50 ML IV SCH (09:34)
[2022-07-03] MEDS: GEMFIBROZIL 600 MG TAB PO SCH ×2 (09:35→22:28)
[2022-07-03] MEDS: METOPROLOL SUCCINATE XL 50 MG TAB PO SCH (09:35)
[2022-07-03] MEDS: SODIUM BICARBONATE 650 MG TAB PO SCH ×2 (09:35→22:28)
[2022-07-03 13:00] VITALS: BP 145/93
[2022-07-03] MEDS: VANCOMYCIN 1GM/250ML 250 ML IV SCH (16:00)
[2022-07-03 17:00] VITALS: BP 120/48
[2022-07-03] MEDS: TAMSULOSIN HYDROCHLORIDE 0.4 MG CAP PO SCH (18:11)
[2022-07-03 22:00] VITALS: BP 156/102
[2022-07-03] MEDS: ATORVASTATIN 20 MG TAB PO SCH (22:28)
[2022-07-03 23:00] VITALS: BP 133/89
[2022-07-04 05:00] VITALS: BP 147/100
[2022-07-04] MEDS: LEVOTHYROXINE SODIUM 50 MCG TAB PO SCH (06:08)
[2022-07-04] MEDS: ACCU-CHEK COMFORT CURVE STRIP VI SCH ×4 (06:19→22:00)
[2022-07-04] MEDS: InsuLIN REG 1unit/0.01ml Soln (100units/ml) SC SCH ×4 (06:19→22:44)
[2022-07-04 09:00] VITALS: BP 147/94
[2022-07-04] MEDS: ASPirin 81 mg TAB PO SCH (09:02)
[2022-07-04] MEDS: GEMFIBROZIL 600 MG TAB PO SCH ×2 (09:02→22:48)
[2022-07-04] MEDS: METOPROLOL SUCCINATE XL 50 MG TAB PO SCH (09:02)
[2022-07-04] MEDS: SODIUM BICARBONATE 650 MG TAB PO SCH ×2 (09:03→22:47)
[2022-07-04] MEDS: cefTRIAXone 1GM/50ML D5W 50 ML IV SCH (09:03)
[2022-07-04 13:00] VITALS: BP 147/107
[2022-07-04] MEDS: VANCOMYCIN 1GM/250ML 250 ML IV SCH (16:22)
[2022-07-04 17:00] VITALS: BP 134/97
[2022-07-04] MEDS: TAMSULOSIN HYDROCHLORIDE 0.4 MG CAP PO SCH (17:17)
[2022-07-04] MEDS ORDERED: DOXY-340 PO (18:27)
[2022-07-04 20:00] VITALS: BP 166/84
[2022-07-04 22:00] VITALS: BP 166/84
[2022-07-04] MEDS: ATORVASTATIN 20 MG TAB PO SCH (22:48)
[2022-07-05 05:00] VITALS: BP 140/95
[2022-07-05 07:00] LABS: BUN/Creatinine Ratio 17.4; Calcium 9.6 mg/dL (8.5-10.1); Potassium 4.9 mmol/L (3.5-5.1)
[2022-07-05] MEDS: InsuLIN REG 1unit/0.01ml Soln (100units/ml) SC SCH ×4 (07:00→22:46)
[2022-07-05] MEDS: LEVOTHYROXINE SODIUM 50 MCG TAB PO SCH (07:11)
[2022-07-05] MEDS: ACCU-CHEK COMFORT CURVE STRIP VI SCH ×4 (07:16→22:45)
[2022-07-05 08:47] VITALS: BP 112/71
[2022-07-05] MEDS: SODIUM BICARBONATE 650 MG TAB PO SCH ×2 (09:49→22:43)
[2022-07-05] MEDS: METOPROLOL SUCCINATE XL 50 MG TAB PO SCH (09:49)
[2022-07-05] MEDS: GEMFIBROZIL 600 MG TAB PO SCH ×2 (09:49→22:43)
[2022-07-05] MEDS: ASPirin 81 mg TAB PO SCH (09:49)
[2022-07-05 13:00] VITALS: BP 104/73
[2022-07-05] MEDS: VANCOMYCIN 1GM/250ML 250 ML IV SCH (16:30)
[2022-07-05 16:40] VITALS: BP 107/80
[2022-07-05] MEDS: TAMSULOSIN HYDROCHLORIDE 0.4 MG CAP PO SCH (17:45)
[2022-07-05 22:00] VITALS: BP 127/63
[2022-07-05] MEDS: ATORVASTATIN 20 MG TAB PO SCH (22:43)
[2022-07-06] MEDS: InsuLIN REG 1unit/0.01ml Soln (100units/ml) SC SCH ×3 (06:47→16:48)
[2022-07-06] MEDS: ACCU-CHEK COMFORT CURVE STRIP VI SCH ×3 (06:47→16:48)
[2022-07-06] MEDS: LEVOTHYROXINE SODIUM 50 MCG TAB PO SCH (06:48)
[2022-07-06 09:00] VITALS: BP 107/71
[2022-07-06] MEDS: GEMFIBROZIL 600 MG TAB PO SCH (10:29)
[2022-07-06] MEDS: SODIUM BICARBONATE 650 MG TAB PO SCH (10:29)
[2022-07-06] MEDS: METOPROLOL SUCCINATE XL 50 MG TAB PO SCH (10:29)
[2022-07-06] MEDS: ASPirin 81 mg TAB PO SCH (10:30)
[2022-07-06] MEDS ORDERED: HYDR-4902 PO (11:49)
[2022-07-06 13:00] VITALS: BP 149/86
[2022-07-06] MEDS: VANCOMYCIN 1GM/250ML 250 ML IV SCH (15:40)
[2022-07-06 16:41] VITALS: BP 144/89
[2022-07-06 17:00] VITALS: BP 144/89
[2022-07-06] MEDS ORDERED: Juven Fruit Punch Powder PACKET 28.8gm PO SCH (18:00)
== END 2022-07-06 17:37 | disposition home health service (06) | DRG 854 ==
LOC: EDUNIT# 20:15 → ER 20:15 → EDBD 20:15 → OVERFLOW 06-29 00:54 → EAST 06-29 20:50
PROVIDERS: ADMIT Nurse Practitioner; ATTEND Internal Medicine
PROC: 05HF33Z Insertion of Infusion Device into Left Cephalic Vein, Percutaneous Approach (ICD-10-PCS; principal; 2022-06-29)
PROC: 0QBQ0ZZ Excision of Right Toe Phalanx, Open Approach (ICD-10-PCS; 2022-06-29)
PROC: B54NZZA Ultrasonography of Left Upper Extremity Veins, Guidance (ICD-10-PCS; 2022-06-29)
DX: A41.02 Sepsis due to Methicillin resistant Staphylococcus aureus (principal); L03.115 Cellulitis of right lower limb; N17.9 Acute kidney failure, unspecified; M00.9 Pyogenic arthritis, unspecified; N18.32 Chronic kidney disease, stage 3b; E03.9 Hypothyroidism, unspecified; E78.5 Hyperlipidemia, unspecified; N40.0 Benign prostatic hyperplasia without lower urinary tract symptoms; M19.90 Unspecified osteoarthritis, unspecified site; E11.621 Type 2 diabetes mellitus with foot ulcer; E11.22 Type 2 diabetes mellitus with diabetic chronic kidney disease; L03.031 Cellulitis of right toe; L97.519 Non-pressure chronic ulcer of other part of right foot with unspecified severity; I12.9 Hypertensive chronic kidney disease with stage 1 through stage 4 chronic kidney disease, or unspecified chronic kidney disease; Z20.822 Contact with and (suspected) exposure to COVID-19; Z82.49 Family history of ischemic heart disease and other diseases of the circulatory system; Z83.3 Family history of diabetes mellitus; Z95.1 Presence of aortocoronary bypass graft; E11.51 Type 2 diabetes mellitus with diabetic peripheral angiopathy without gangrene
CPT/HCPCS: 36415; 71045; 73221; 73700; 73718; 76775; 78582; 80048; 80053; 80202; 80307; 81001; 82565; 82962; 83605; 83735; 83880; 84100; 84484; 85025; 85379; 85610; 85652; 85730; 87040; 87077; 87186; 87205; 87426; 87804; 93005; 93306; 93971; 96365; 96375; 97163; G0378; J0696; J1815; J2185; J2543; J3490

== ENCOUNTER 2023-02-08 14:51 | Emergency (ER) | payer OTHER, MEDICAID ==
[~2023-02-08] VITALS: Ht 162.6 cm; Wt 70.0 kg
[~2023-02-08 14:51] MED LIST changes: +DOXY1CAP57 PO; -GEMF-19 PO; +GEMF-66 PO; +HYDR-4902 PO
[2023-02-08] MEDS ORDERED: SODIUM CHLORIDE 0.9% 1,000 ML IV ONE ×2 (15:00)
[2023-02-08 16:15] LABS: Basophils # (auto) 0.1 10 ^3/uL (0-0.2); Basophils % (auto) 0.8 % (0.0-2.0); Eosinophils # (auto) 0.2 10 ^3/uL (0-0.8); Eosinophils % (auto) 1.7 % (0.0-7.0); Hematocrit 55.4 % (41.0-53.0); Lymphocytes # (auto) 3.8 10 ^3/uL (0.4-5.4); Lymphocytes % (auto) 37.3 % (10.0-50.0); Mean Corpuscular Hemoglobin 30.9 pg (28.0-32.0); Mean Corpuscular Hgb Conc. 34.3 g/dL (32.0-36.0); Mean Corpuscular Volume 90.1 fL (80.0-100.0); Monocytes # (auto) 0.9 10 ^3/uL (0-1.3); Monocytes % (auto) 8.5 % (0.0-12.0); Neutrophils # (auto) 5.3 10 ^3/uL (1.6-8.6); Neutrophils % (auto) 51.7 % (37.0-80.0); Nucleated Red Blood Cells % 0.5 %; Red Blood Cells 6.15 10^6/uL (4.5-5.90); Red Cell Distribution Width 13.3 % (11.8-14.3); White Blood Cell 10.3 10^3/uL (4.4-10.8)
[2023-02-08 16:22] LABS: Albumin 3.6 g/dL (3.4-5.0); BUN/Creatinine Ratio 13.1 (10.0-20.0); Calcium 9.9 mg/dL (8.5-10.1); Potassium 3.8 mmol/L (3.5-5.1)
[2023-02-08 16:25] LABS: Bilirubin, Total 0.7 mg/dL (0.2-1.0); Total Protein 9.1 g/dL (6.4-8.2)
[2023-02-08 17:10] VITALS: BP 96/58
[2023-02-08] MEDS ORDERED: DEXTROSE (50%) 50ML SYRG IV PRN (18:15)
[2023-02-08] MEDS ORDERED: PANTOPRAZOLE 40 MG TAB PO ONE (18:15)
[2023-02-08] MEDS ORDERED: PATIENTS OWN MEDICATION (Sodium Bicarbonate 650 MG) PO SCH (22:00)
[2023-02-08] MEDS ORDERED: MESALAMINE 400 MG PO SCH (22:00)
[2023-02-08] MEDS ORDERED: InsuLIN REG 1unit/0.01ml Soln (100units/ml) SC SCH (22:00)
[2023-02-08] MEDS ORDERED: ACCU-CHEK COMFORT CURVE STRIP VI SCH (22:00)
[2023-02-08] MEDS ORDERED: DICYCLOMINE HCL 20 MG PO SCH (22:00)
[2023-02-08] MEDS ORDERED: ROSUVASTATIN CALCIUM 40 MG PO SCH (22:00)
[2023-02-09] MEDS ORDERED: LEVOTHYROXINE SODIUM 50 MCG TAB PO SCH (07:00)
[2023-02-09] MEDS ORDERED: ASPirin-EC 81 mg tab PO SCH (10:00)
[2023-02-09] MEDS ORDERED: PANTOPRAZOLE 40 MG TAB PO SCH (10:00)
[2023-02-09] MEDS ORDERED: TAMSULOSIN HYDROCHLORIDE 0.4 MG CAP PO SCH (10:00)
== END 2023-02-08 17:32 | disposition left against medical advice (07) ==
LOC: ER 14:51
DX: I95.9 Hypotension, unspecified (principal); E11.65 Type 2 diabetes mellitus with hyperglycemia; I12.9 Hypertensive chronic kidney disease with stage 1 through stage 4 chronic kidney disease, or unspecified chronic kidney disease; E11.22 Type 2 diabetes mellitus with diabetic chronic kidney disease; N18.9 Chronic kidney disease, unspecified; M10.9 Gout, unspecified
CPT/HCPCS: 36415; 71045; 80053; 82962; 83036; 83880; 84484; 85025; 93005

== ENCOUNTER 2023-08-27 13:40 | Inpatient (IN) | payer OTHER, MEDICAID ==
[~2023-08-27] VITALS: Ht 162.6 cm; Wt 77.6 kg
[2023-08-27 14:05] VITALS: PULSE 111; RESP 21; O2SAT 99
[2023-08-27 15:56] LABS: Eosinophils # (auto) 0 10 ^3/uL (0-0.8); Monocytes # (auto) 1.2 10 ^3/uL (0-1.3); Neutrophils # (auto) 20.5 10 ^3/uL (1.6-8.6)
[2023-08-27 15:57] LABS: Basophils # (auto) 0 10 ^3/uL (0-0.2); Basophils % (auto) 0.2 % (0.0-2.0); Hemoglobin 19.1 g/dL (13.5-17.5); Lymphocytes # (auto) 1.4 10 ^3/uL (0.4-5.4); Lymphocytes % (auto) 6.1 % (10.0-50.0); Mean Corpuscular Hemoglobin 28.9 pg (28.0-32.0); Mean Corpuscular Hgb Conc. 32.8 g/dL (32.0-36.0); Neutrophils % (auto) 88.7 % (37.0-80.0); Nucleated Red Blood Cells % 0.1 %; Red Blood Cells 6.61 10^6/uL (4.5-5.90); Red Cell Distribution Width 13.6 % (11.8-14.3); White Blood Cell 23.1 10^3/uL (4.4-10.8)
[2023-08-27 16:03] LABS: Hematocrit 58.2 % (41.0-53.0)
[2023-08-27 16:39] LABS: Alanine Aminotransferase 99 U/L (7-40); Albumin 4.8 g/dL (3.2-4.8); Alkaline Phosphatase 80 U/L (46-116); Anion Gap 22.00001 (5-15); Aspartate Aminotransferase 398 U/L (13-40); BUN/Creatinine Ratio 11.1 (10.0-20.0); Bilirubin, Total 1.1 mg/dL (0.2-1.0); Blood Urea Nitrogen 71 mg/dL (9-23); Calcium 9.1 mg/dL (8.7-10.4); Chloride 100 mmol/L (98-107); Glucose 151 mg/dL (74-106); Lipase 112 U/L (12-53); Potassium 4.6 mmol/L (3.5-5.1); Sodium 132 mmol/L (136-145); Total Protein 9.5 g/dL (5.7-8.2)
[2023-08-27 16:44] LABS: Carbon Dioxide < 10 mmol/L (20-30)
[2023-08-27 17:25] LABS: Base Excess -12.5 mmol/L (-2.0-2.0)
[2023-08-27] MEDS: MORPHINE SULFATE 4 MG/ML SYR/VIAL IV ONE ×2 (17:59→22:57)
[2023-08-27] MEDS: SODIUM CHLORIDE 0.9% 1,000 ML IV ONE (17:59)
[2023-08-27 19:51] LABS: Urine Epithelial Cast None Seen /hpf (<5)
[2023-08-27 20:12] VITALS: RESP 21; O2SAT 93
[2023-08-27 20:21] LABS: Urine Bacteria NONE SEEN /hpf (None Seen); Urine Blood 3+ /uL (Negative); Urine Clarity HAZY (Clear); Urine Color Yellow (Yellow); Urine Protein, UAD 2+ (Negative); Urine Specific Gravity 1.012 (1.001-1.035); Urine Urobilinogen Normal (Negative); Urine WBC 6 /hpf (0 - 3)
[2023-08-27 23:03] LABS: Chloride 102 mmol/L (98-107); Potassium 4.7 mmol/L (3.5-5.1); Sodium 134 mmol/L (136-145)
[2023-08-27 23:04] LABS: Anion Gap 21 (5-15); Calcium 8.7 mg/dL (8.7-10.4); Carbon Dioxide 11 mmol/L (20-30)
[2023-08-27 23:09] LABS: BUN/Creatinine Ratio 13.5 (10.0-20.0); Glucose 145 mg/dL (74-106)
[2023-08-27 23:24] LABS: Blood Urea Nitrogen 84 mg/dL (9-23); Lactic Acid w/Reflex 2.7 mmol/L (0.4-2.0)
[2023-08-28] MEDS ORDERED: NITROGLYCERIN 0.4 MG SL TAB SL PRN (00:15)
[2023-08-28] MEDS ORDERED: DEXTROSE (50%) 50ML SYRG IV PRN (00:15)
[2023-08-28] MEDS: cefTRIAXone 1GM/50ML D5W 50 ML IV ONE (00:51)
[2023-08-28] MEDS: INSULIN LANTUS (GLARGINE) 1 /0.01ml (100units/ml) SC ONE (00:52)
[2023-08-28 01:05] LABS: Base Excess -13.8 mmol/L (-2.0-2.0)
[2023-08-28] MEDS: ACCU-CHEK COMFORT CURVE STRIP VI SCH (01:10)
[2023-08-28] MEDS: INSULIN DRIP 100 UNIT/100ML 100 ML IV SCH (01:15)
[2023-08-28] MEDS: HYDROcodone-ACET 5/325MG TAB PO PRN (02:01)
[2023-08-28 03:13] LABS: Anion Gap 20.00001 (5-15); Chloride 104 mmol/L (98-107); Potassium 4.7 mmol/L (3.5-5.1); Sodium 134 mmol/L (136-145)
[2023-08-28 03:14] LABS: Calcium 8.5 mg/dL (8.7-10.4)
[2023-08-28 03:19] LABS: BUN/Creatinine Ratio 11.8 (10.0-20.0); Glucose 154 mg/dL (74-106)
[2023-08-28 03:32] LABS: Blood Urea Nitrogen 72 mg/dL (9-23); Carbon Dioxide < 10 mmol/L (20-30)
[2023-08-28] MEDS: SODIUM CHLORIDE 0.9% 1,000 ML IV SCH ×2 (04:40→06:20)
[2023-08-28] MEDS: HYDROcodone-ACET 5/325MG TAB PO ONE (05:40)
[2023-08-28] MEDS ORDERED: cefTRIAXone 1GM/50ML D5W 50 ML IV SCH (09:00)
[2023-08-28 09:16] LABS: Hemoglobin 18.3 g/dL (13.5-17.5)
[2023-08-28 09:19] LABS: Hematocrit 55.8 % (41.0-53.0); Mean Corpuscular Hemoglobin 28.7 pg (28.0-32.0); Mean Corpuscular Hgb Conc. 32.8 g/dL (32.0-36.0); Mean Corpuscular Volume 87.7 fL (80.0-100.0); Red Blood Cells 6.36 10^6/uL (4.5-5.90); Red Cell Distribution Width 13.5 % (11.8-14.3)
[2023-08-28 09:20] LABS: White Blood Cell 32.7 10^3/uL (4.4-10.8)
[2023-08-28 09:22] LABS: Band Neutrophils % (manual) 0; Basophils % (manual) 0 (0.0-2.0); Blast Cells 0; Eosinophils % (manual) 0 (0-7); Metamyelocytes % 0; Myelocytes % 0; Promyelocytes % 0; Reactive Lymphocytes 0
[2023-08-28 09:44] LABS: Anion Gap 20 (5-15); Carbon Dioxide 11 mmol/L (20-30); Chloride 103 mmol/L (98-107); Potassium 4.5 mmol/L (3.5-5.1); Sodium 134 mmol/L (136-145)
[2023-08-28 09:46] LABS: Calcium 8.6 mg/dL (8.5-10.1)
[2023-08-28 09:49] LABS: Glucose 160 mg/dL (74-106)
[2023-08-28 09:50] LABS: BUN/Creatinine Ratio 13.1 (10.0-20.0)
[2023-08-28 10:14] LABS: Blood Urea Nitrogen 82 mg/dL (9-23)
[2023-08-28 13:48] LABS: Lymphocytes % (manual) 2 (10.0-50.0); Monocytes % (manual) 5 (0-12); Platelet Estimate Adequate
[2023-08-28 15:07] LABS: Chloride 107 mmol/L (98-107); Potassium 4.1 mmol/L (3.5-5.1); Sodium 136 mmol/L (136-145)
[2023-08-28 15:08] LABS: Anion Gap 18 (5-15); Calcium 7.8 mg/dL (8.5-10.1); Carbon Dioxide 11 mmol/L (20-30)
[2023-08-28 15:13] LABS: BUN/Creatinine Ratio 12.1 (10.0-20.0); Blood Urea Nitrogen 71 mg/dL (9-23); Glucose 147 mg/dL (74-106)
[2023-08-28] MEDS: SODIUM BICARBONATE 50ML VIAL 75 ML in SOD CHL 0.45% 1,000 ML IV SCH (16:30)
[2023-08-28] MEDS: ONDANSETRON HCL 4 MG/2 ML VIAL IV PRN (16:47)
[2023-08-28] MEDS: MORPHINE SULFATE INJ 2 MG/ml SYRG IV PRN ×2 (16:48→23:09)
[2023-08-28] MEDS: SODIUM BICARBONATE 50ML VIAL 150 ML in D5W 5% 1,000 ML IV ONE (18:10)
[2023-08-28 20:53] LABS: Chloride 102 mmol/L (98-107); Potassium 4.3 mmol/L (3.5-5.1); Sodium 133 mmol/L (136-145)
[2023-08-28 20:54] LABS: Anion Gap 16 (5-15); Calcium 7.9 mg/dL (8.5-10.1); Carbon Dioxide 15 mmol/L (20-30)
[2023-08-28 20:59] LABS: BUN/Creatinine Ratio 17.9 (10.0-20.0); Glucose 188 mg/dL (74-106)
[2023-08-28 21:10] LABS: Blood Urea Nitrogen 108 mg/dL (9-23)
[2023-08-28] MEDS: INSULIN LANTUS (GLARGINE) 1 /0.01ml (100units/ml) SC SCH (23:07)
[2023-08-29] VITALS (7 sets, daily range): BP systolic 78–96; BP diastolic 33–52; PULSE 108–117; RESP 17–22; TEMP 98.5; O2SAT 93–98
[2023-08-29] MEDS: cefTRIAXone 1GM/50ML D5W 50 ML IV SCH (01:03)
[2023-08-29] MEDS: SODIUM BICARBONATE 8.4% INJ 50ML SYRINGE ONE (02:29)
[2023-08-29 05:10] LABS: Alanine Aminotransferase 74 U/L (7-40); Albumin 3.6 g/dL (3.2-4.8); Alkaline Phosphatase 89 U/L (46-116); Anion Gap 16 (5-15); Aspartate Aminotransferase 215 U/L (13-40); BUN/Creatinine Ratio 20.7 (10.0-20.0); Calcium 7.4 mg/dL (8.7-10.4); Carbon Dioxide 17 mmol/L (20-30); Chloride 100 mmol/L (98-107); Glucose 94 mg/dL (74-106); Magnesium 1.7 mg/dL (1.6-2.6); Potassium 3.8 mmol/L (3.5-5.1); Sodium 133 mmol/L (136-145)
[2023-08-29 05:11] LABS: Bilirubin, Total 0.4 mg/dL (0.2-1.0); Total Protein 7.1 g/dL (5.7-8.2)
[2023-08-29 05:16] LABS: Blood Urea Nitrogen 118 mg/dL (9-23)
[2023-08-29] MEDS ORDERED: DEXTROSE (50%) 50ML SYRG IV PRN (06:15)
[2023-08-29 07:25] LABS: Basophils # (auto) 0 10 ^3/uL (0-0.2); Basophils % (auto) 0.2 % (0.0-2.0); Eosinophils # (auto) 0 10 ^3/uL (0-0.8); Hematocrit 49.5 % (41.0-53.0); Hemoglobin 16.4 g/dL (13.5-17.5); Lymphocytes # (auto) 0.7 10 ^3/uL (0.4-5.4); Lymphocytes % (auto) 2.9 % (10.0-50.0); Mean Corpuscular Hemoglobin 28.9 pg (28.0-32.0); Mean Corpuscular Hgb Conc. 33.2 g/dL (32.0-36.0); Monocytes # (auto) 1.8 10 ^3/uL (0-1.3); Monocytes % (auto) 7.2 % (0.0-12.0); Neutrophils # (auto) 22.3 10 ^3/uL (1.6-8.6); Neutrophils % (auto) 89.7 % (37.0-80.0); Nucleated Red Blood Cells % 0.1 %; Red Blood Cells 5.69 10^6/uL (4.5-5.90); White Blood Cell 24.9 10^3/uL (4.4-10.8)
[2023-08-29] MEDS: InsuLIN REG 1unit/0.01ml Soln (100units/ml) SC SCH (07:41)
[2023-08-29] MEDS: ACCU-CHEK COMFORT CURVE STRIP VI SCH (07:42)
[2023-08-29] MEDS: SODIUM BICARBONATE 50ML VIAL 150 ML in D5W 5% 1,000 ML IV SCH (09:42)
[2023-08-29] MEDS ORDERED: INSULIN LANTUS (GLARGINE) 1 /0.01ml (100units/ml) SC SCH (10:00)
[2023-08-29] MEDS: MORPHINE SULFATE INJ 2 MG/ml SYRG IV PRN (10:02)
[2023-08-29] MEDS: metroNIDAZOLE 500MG/100ML 100 ML IV SCH (13:36)
[2023-08-29] MEDS: GASTROGRAFIN 120 ML SOL ONE (16:02)
[2023-08-29] MEDS: SODIUM CHLORIDE 0.9% 500 ML IV ONE (18:26)
[2023-08-29] MEDS: HALOPERIDOL LACTATE 5 MG/ML INJ VIAL IM PRN (19:00)
[2023-08-30] VITALS (30 sets, daily range): BP systolic 87–165; BP diastolic 52–73; PULSE 101–112; RESP 15–24; TEMP 97.5–100.9; O2SAT 77–100
[2023-08-30] MEDS: D5W/LACTATED RINGERS 1,000 ML IV SCH (04:00)
[2023-08-30] MEDS: SODIUM BICARBONATE 8.4% INJ 50ML SYRINGE ONE ×3 (04:04→05:22)
[2023-08-30] MEDS: SODIUM BICARBONATE 8.4 % INJ 50ML VIAL IV ONE (05:22)
[2023-08-30 05:47] LABS: Basophils # (auto) 0 10 ^3/uL (0-0.2); Basophils % (auto) 0.1 % (0.0-2.0); Eosinophils # (auto) 0 10 ^3/uL (0-0.8); Hematocrit 45.8 % (41.0-53.0); Hemoglobin 15.2 g/dL (13.5-17.5); Lymphocytes # (auto) 0.9 10 ^3/uL (0.4-5.4); Lymphocytes % (auto) 3.5 % (10.0-50.0); Mean Corpuscular Hemoglobin 28.9 pg (28.0-32.0); Mean Corpuscular Hgb Conc. 33.1 g/dL (32.0-36.0); Mean Corpuscular Volume 87.2 fL (80.0-100.0); Monocytes # (auto) 1.7 10 ^3/uL (0-1.3); Monocytes % (auto) 6.7 % (0.0-12.0); Neutrophils # (auto) 22.3 10 ^3/uL (1.6-8.6); Neutrophils % (auto) 89.7 % (37.0-80.0); Red Blood Cells 5.25 10^6/uL (4.5-5.90); Red Cell Distribution Width 13.5 % (11.8-14.3); White Blood Cell 24.9 10^3/uL (4.4-10.8)
[2023-08-30 06:05] LABS: Alanine Aminotransferase 83 U/L (7-40); Albumin 3.6 g/dL (3.2-4.8); Alkaline Phosphatase 110 U/L (46-116); Anion Gap 18 (5-15); Aspartate Aminotransferase 320 U/L (13-40); BUN/Creatinine Ratio 18.6 (10.0-20.0); Calcium 6.6 mg/dL (8.7-10.4); Carbon Dioxide 18 mmol/L (20-30); Chloride 95 mmol/L (98-107); Glucose 138 mg/dL (74-106); Magnesium 2.1 mg/dL (1.6-2.6); Potassium 4.6 mmol/L (3.5-5.1); Sodium 131 mmol/L (136-145)
[2023-08-30 06:06] LABS: Bilirubin, Total 0.5 mg/dL (0.2-1.0)
[2023-08-30 06:57] LABS: Blood Urea Nitrogen 132 mg/dL (9-23)
[2023-08-30 09:24] LABS: INR 1.31 (0.9-1.15); Partial Thromboplastin Time 36.2 SEC (24.5-34.5); Prothrombin Time 13.5 sec (9.3-11.8)
[2023-08-30] MEDS ORDERED: DexAMETHasone SOD PHOS 10MG/1ML VIAL INJ ONE (09:50)
[2023-08-30] MEDS ORDERED: HYDROmorphone HCL 2 MG/ML VL/or syr ONE (09:50)
[2023-08-30] MEDS ORDERED: ONDANSETRON HCL 4 MG/2 ML VIAL ONE (09:50)
[2023-08-30] MEDS ORDERED: MIDAZOLAM HCL 2MG/2ML 2ml VIAL (1mg/ml) ONE (09:50)
[2023-08-30] MEDS ORDERED: ETOMIDATE (2MG/ML) 20ML VIAL IV ONE (09:50)
[2023-08-30] MEDS ORDERED: ePHEDrine SULFATE 50 MG/ML AMP ONE (09:50)
[2023-08-30] MEDS ORDERED: fentaNYL CITRATE 100 MCG/2 ML VL ONE (09:50)
[2023-08-30] MEDS ORDERED: LIDOCAINE 2% (LOCAL ANESTH.) PF 5ml SDV ONE (09:50)
[2023-08-30] MEDS: PANTOPRAZOLE 40 MG/10 ML VIAL INJ IV SCH (10:00)
[2023-08-30] MEDS ORDERED: MORPHINE SULFATE INJ 2 MG/ml SYRG IV PRN (10:15)
[2023-08-30] MEDS: ceFAZolin 2 GM/D5W100ml 100 ML IV ONE ×2 (10:29→10:33)
[2023-08-30] MEDS: EPINEPHrine HCL 250 ML IV SCH (11:30)
[2023-08-30] MEDS: NOREPINEPHRINE 8 MG/250ML KIT 250 ML IV SCH (11:30)
[2023-08-30] MEDS: EPINEPHrine HCL 250 ML IV ONE (11:54)
[2023-08-30 11:56] LABS: Base Excess -3.9 mmol/L (-2.0-2.0)
[2023-08-30] MEDS: VASOPRESSIN 20 UNITS in SODIUM CHL 0.9% 99 ML IV SCH (12:45)
[2023-08-30] MEDS: ACCU-CHEK COMFORT CURVE STRIP VI ONE (13:30)
[2023-08-30] MEDS ORDERED: MIDAZOLAM DRIP 50 mg/50mL 50 ML IV SCH (13:30)
[2023-08-30] MEDS: MIDAZOLAM DRIP 50 mg/50mL 50 ML IV ONE (13:34)
[2023-08-30] MEDS: MIDAZOLAM DRIP 50 mg/50mL 50 ML IV SCH (13:44)
[2023-08-30] MEDS: fentaNYL Drip 2500mCg/250mlNS 250 ML IV SCH (14:00)
[2023-08-30 14:42] LABS: Base Excess -12.5 mmol/L (-2.0-2.0)
[2023-08-30] MEDS ORDERED: HYDROCORTISONE SOD SUCC 100 MG/2ML INJ VIAL IV ONE (15:46)
[2023-08-30] MEDS ORDERED: PHENYLEPHRINE HCL 10 MG/ML VL IV ONE (15:46)
[2023-08-30 22:01] LABS: Base Excess -11.1 mmol/L (-2.0-2.0)
[2023-08-31] VITALS (108 sets, daily range): BP systolic 87–157; BP diastolic 51–83; PULSE 73–108; RESP 18–26; TEMP 98.1–100.8; O2SAT 90–99
[2023-08-31 06:49] LABS: Basophils # (auto) 0 10 ^3/uL (0-0.2); Basophils % (auto) 0.1 % (0.0-2.0); Eosinophils # (auto) 0 10 ^3/uL (0-0.8); Hematocrit 37.6 % (41.0-53.0); Hemoglobin 12.5 g/dL (13.5-17.5); Lymphocytes # (auto) 0.2 10 ^3/uL (0.4-5.4); Lymphocytes % (auto) 1.4 % (10.0-50.0); Mean Corpuscular Hgb Conc. 33.3 g/dL (32.0-36.0); Mean Corpuscular Volume 87.1 fL (80.0-100.0); Monocytes # (auto) 0.8 10 ^3/uL (0-1.3); Monocytes % (auto) 4.5 % (0.0-12.0); Neutrophils # (auto) 16.3 10 ^3/uL (1.6-8.6); Nucleated Red Blood Cells % 0.1 %; Red Blood Cells 4.32 10^6/uL (4.5-5.90); Red Cell Distribution Width 13.7 % (11.8-14.3); White Blood Cell 17.4 10^3/uL (4.4-10.8)
[2023-08-31 07:06] LABS: Alanine Aminotransferase 47 U/L (7-40); Albumin 2.5 g/dL (3.2-4.8); Alkaline Phosphatase 98 U/L (46-116); Anion Gap 17 (5-15); Aspartate Aminotransferase 159 U/L (13-40); BUN/Creatinine Ratio 21.4 (10.0-20.0); Carbon Dioxide 20 mmol/L (20-30); Chloride 97 mmol/L (98-107); Magnesium 1.9 mg/dL (1.6-2.6); Sodium 134 mmol/L (136-145)
[2023-08-31 07:07] LABS: Bilirubin, Total 0.3 mg/dL (0.2-1.0)
[2023-08-31 07:25] LABS: Glucose 348 mg/dL (74-106)
[2023-08-31 07:32] LABS: Blood Urea Nitrogen 144 mg/dL (9-23); Calcium 5.2 mg/dL (8.7-10.4)
[2023-08-31 09:49] LABS: Base Excess -4.1 mmol/L (-2.0-2.0)
[2023-08-31] MEDS: SODIUM CHL 0.9% 1000 ML BAG XX ONE (12:00)
[2023-08-31] MEDS ORDERED: SODIUM BICARBONATE 50ML VIAL 150 ML in D5W 5% 1,000 ML IV SCH (12:30)
[2023-08-31] MEDS: SODIUM BICARBONATE 50ML VIAL 150 ML in D5W 5% 1,000 ML IV SCH (13:15)
[2023-08-31] MEDS: CATHFLO ACTIVASE (ALTEPLASE) 2 MG VIAL IV ONE (13:54)
[2023-08-31] MEDS: CALCIUM GLUC 1,000mg/50ml-NS 50 ML IV SCH (17:02)
[2023-09-01] VITALS (104 sets, daily range): BP systolic 85–153; BP diastolic 49–93; PULSE 70–85; RESP 12–24; TEMP 98.2–99.3; O2SAT 89–98
[2023-09-01 03:53] LABS: Hemoglobin 12.3 g/dL (13.5-17.5); Mean Corpuscular Hemoglobin 28.6 pg (28.0-32.0); Mean Corpuscular Hgb Conc. 33.3 g/dL (32.0-36.0); Mean Corpuscular Volume 85.9 fL (80.0-100.0); Red Blood Cells 4.31 10^6/uL (4.5-5.90); Red Cell Distribution Width 13.6 % (11.8-14.3); White Blood Cell 26.4 10^3/uL (4.4-10.8)
[2023-09-01 04:00] LABS: Band Neutrophils % (manual) 0; Basophils % (manual) 0 (0.0-2.0); Blast Cells 0; Eosinophils % (manual) 0 (0-7); Metamyelocytes % 0; Myelocytes % 0; Promyelocytes % 0; Reactive Lymphocytes 0
[2023-09-01 04:06] LABS: Alanine Aminotransferase 34 U/L (7-40); Albumin 2.5 g/dL (3.2-4.8); Alkaline Phosphatase 118 U/L (46-116); Anion Gap 14 (5-15); Aspartate Aminotransferase 165 U/L (13-40); Carbon Dioxide 24 mmol/L (20-30); Chloride 98 mmol/L (98-107); Potassium 4.9 mmol/L (3.5-5.1); Sodium 136 mmol/L (136-145)
[2023-09-01 04:07] LABS: Bilirubin, Total 0.2 mg/dL (0.2-1.0)
[2023-09-01 04:14] LABS: BUN/Creatinine Ratio 22.4 (10.0-20.0)
[2023-09-01 04:19] LABS: Glucose 147 mg/dL (74-106)
[2023-09-01 04:36] LABS: Lymphocytes % (manual) 9 (10.0-50.0); Monocytes % (manual) 4 (0-12); Platelet Estimate Adequate
[2023-09-01 04:39] LABS: Blood Urea Nitrogen 155 mg/dL (9-23)
[2023-09-01 04:40] LABS: Calcium 5.4 mg/dL (8.7-10.4)
[2023-09-01] MEDS: SODIUM BICARBONATE 8.4% INJ 50ML SYRINGE ONE (08:00)
[2023-09-01] MEDS: SODIUM BICARBONATE 8.4 % INJ 50ML VIAL IV ONE ×2 (08:00)
[2023-09-01 09:07] LABS: Base Excess -3.9 mmol/L (-2.0-2.0)
[2023-09-01] MEDS: CALCIUM GLUC 1,000mg/50ml-NS 50 ML IV SCH (11:25)
[2023-09-01] MEDS ORDERED: TPN PER PHARMACY 0 ML IV SCH (13:00)
[2023-09-01 13:16] LABS: Phosphorus 10.5 mg/dL (2.4-5.1)
[2023-09-01] MEDS: CALCIUM CHL 100MG/ML 1,000 MG in D5W 5% 100 ML IV ONE (13:20)
[2023-09-01] MEDS: HEPARIN 1,000 UNITS/ml 1ML VIAL IV ONE (16:15)
[2023-09-01] MEDS: AMINO ACID INFUSION IN D10W 1,000 ML IV NR (19:35)
[2023-09-02] VITALS (106 sets, daily range): BP systolic 74–165; BP diastolic 40–143; PULSE 67–89; RESP 13–24; TEMP 99–100.2; O2SAT 87–98
[2023-09-02] MEDS ORDERED: DEXTROSE (50%) 50ML SYRG IV SCH
[2023-09-02] MEDS: ACCU-CHEK COMFORT CURVE STRIP VI SCH (00:18)
[2023-09-02] MEDS: InsuLIN REG 1unit/0.01ml Soln (100units/ml) SC SCH (00:37)
[2023-09-02 03:59] LABS: Alanine Aminotransferase 20 U/L (7-40); Albumin 2.3 g/dL (3.2-4.8); Alkaline Phosphatase 106 U/L (46-116); Anion Gap 15 (5-15); Aspartate Aminotransferase 136 U/L (13-40); BUN/Creatinine Ratio 21.1 (10.0-20.0); Carbon Dioxide 21 mmol/L (20-30); Chloride 100 mmol/L (98-107); Glucose 169 mg/dL (74-106); Potassium 4.3 mmol/L (3.5-5.1); Sodium 136 mmol/L (136-145)
[2023-09-02 04:00] LABS: Bilirubin, Total 0.2 mg/dL (0.2-1.0); Phosphorus 8.1 mg/dL (2.4-5.1); Total Protein 4.6 g/dL (5.7-8.2)
[2023-09-02 04:21] LABS: Blood Urea Nitrogen 114 mg/dL (9-23); Calcium 5.4 mg/dL (8.7-10.4)
[2023-09-02] MEDS: SODIUM CHL 0.9% 1000 ML BAG XX ONE (07:00)
[2023-09-02 08:23] LABS: Base Excess -1.5 mmol/L (-2.0-2.0)
[2023-09-02 09:21] LABS: Triglycerides 159 mg/dL (< 150)
[2023-09-02] MEDS: CALCIUM GLUC 1,000mg/50ml-NS 50 ML IV SCH ×2 (10:25→12:15)
[2023-09-02 11:56] LABS: Basophils # (auto) 0 10 ^3/uL (0-0.2); Eosinophils # (auto) 0 10 ^3/uL (0-0.8); Eosinophils % (auto) 0.1 % (0.0-7.0); Hematocrit 38.3 % (41.0-53.0); Hemoglobin 12.2 g/dL (13.5-17.5); Lymphocytes # (auto) 0.9 10 ^3/uL (0.4-5.4); Lymphocytes % (auto) 4.2 % (10.0-50.0); Mean Corpuscular Hemoglobin 28.3 pg (28.0-32.0); Mean Corpuscular Hgb Conc. 31.9 g/dL (32.0-36.0); Mean Corpuscular Volume 88.6 fL (80.0-100.0); Monocytes # (auto) 1.8 10 ^3/uL (0-1.3); Monocytes % (auto) 8.4 % (0.0-12.0); Neutrophils # (auto) 18.9 10 ^3/uL (1.6-8.6); Neutrophils % (auto) 87.3 % (37.0-80.0); Nucleated Red Blood Cells % 0.1 %; Red Blood Cells 4.33 10^6/uL (4.5-5.90); Red Cell Distribution Width 13.4 % (11.8-14.3); White Blood Cell 21.6 10^3/uL (4.4-10.8)
[2023-09-02] MEDS: TPN PER PHARMACY IV NR (20:16)
[2023-09-02] MEDS: NOREPINEPHRINE 8 MG/250ML KIT 250 ML IV SCH (21:30)
[2023-09-03] VITALS (106 sets, daily range): BP systolic 87–147; BP diastolic 46–86; PULSE 81–91; RESP 22–25; TEMP 99.9–101.1; O2SAT 91–95
[2023-09-03 04:28] LABS: Basophils # (auto) 0 10 ^3/uL (0-0.2); Eosinophils # (auto) 0 10 ^3/uL (0-0.8); Eosinophils % (auto) 0.2 % (0.0-7.0); Hematocrit 41.2 % (41.0-53.0); Hemoglobin 13.3 g/dL (13.5-17.5); Lymphocytes # (auto) 1.3 10 ^3/uL (0.4-5.4); Lymphocytes % (auto) 6.4 % (10.0-50.0); Mean Corpuscular Hemoglobin 28.2 pg (28.0-32.0); Mean Corpuscular Hgb Conc. 32.3 g/dL (32.0-36.0); Mean Corpuscular Volume 87.2 fL (80.0-100.0); Monocytes # (auto) 1.1 10 ^3/uL (0-1.3); Neutrophils # (auto) 18.7 10 ^3/uL (1.6-8.6); Neutrophils % (auto) 88.4 % (37.0-80.0); Nucleated Red Blood Cells % 0.1 %; Red Blood Cells 4.72 10^6/uL (4.5-5.90); Red Cell Distribution Width 13.9 % (11.8-14.3); White Blood Cell 21.1 10^3/uL (4.4-10.8)
[2023-09-03 04:59] LABS: Alanine Aminotransferase 18 U/L (7-40); Albumin 2.6 g/dL (3.2-4.8); Alkaline Phosphatase 111 U/L (46-116); Anion Gap 17 (5-15); Aspartate Aminotransferase 142 U/L (13-40); BUN/Creatinine Ratio 19.5 (10.0-20.0); Bilirubin, Total 0.2 mg/dL (0.2-1.0); Calcium 6.4 mg/dL (8.7-10.4); Carbon Dioxide 19 mmol/L (20-30); Chloride 100 mmol/L (98-107); Glucose 143 mg/dL (74-106); Phosphorus 6.9 mg/dL (2.4-5.1); Potassium 4.3 mmol/L (3.5-5.1); Sodium 136 mmol/L (136-145); Total Protein 5.3 g/dL (5.7-8.2)
[2023-09-03 05:08] LABS: Blood Urea Nitrogen 91 mg/dL (9-23)
[2023-09-03] MEDS: ACETAMINOPHEN 650 MG RECT SUPP PR PRN (06:02)
[2023-09-03 08:10] LABS: Base Excess -2.5 mmol/L (-2.0-2.0)
[2023-09-03 09:22] LABS: Hepatitis B Surface Antigen Negative (Negative)
[2023-09-03 09:43] LABS: Hepatitis A Ab IgM Negative
[2023-09-03 09:44] LABS: Hepatitis B Core IgM Negative
[2023-09-03] MEDS ORDERED: CALCIUM GLUC 1,000mg/50ml-NS 50 ML IV SCH (10:00)
[2023-09-03 10:28] LABS: Hepatitis C Antibody Reactive (Negative)
[2023-09-03] MEDS: CALCIUM GLUC 1,000mg/50ml-NS 50 ML IV SCH (10:31)
[2023-09-03] MEDS: CEFEPIME 1GM/ 50ML 50 ML IV ONE (14:19)
[2023-09-03] MEDS: TPN PER PHARMACY IV NR (20:21)
[2023-09-03] MEDS: LINEZOLID 600MG/300ML 300 ML IV SCH (21:41)
[2023-09-04] VITALS (107 sets, daily range): BP systolic 98–142; BP diastolic 47–78; PULSE 85–107; RESP 15–27; TEMP 98.4–100.9; O2SAT 90–99
[2023-09-04 04:13] LABS: Basophils # (auto) 0 10 ^3/uL (0-0.2); Basophils % (auto) 0.1 % (0.0-2.0); Eosinophils # (auto) 0.2 10 ^3/uL (0-0.8); Eosinophils % (auto) 0.9 % (0.0-7.0); Hematocrit 39.1 % (41.0-53.0); Hemoglobin 12.9 g/dL (13.5-17.5); Lymphocytes # (auto) 1.5 10 ^3/uL (0.4-5.4); Lymphocytes % (auto) 6.1 % (10.0-50.0); Mean Corpuscular Hemoglobin 29.2 pg (28.0-32.0); Mean Corpuscular Hgb Conc. 32.9 g/dL (32.0-36.0); Mean Corpuscular Volume 88.8 fL (80.0-100.0); Monocytes % (auto) 4.1 % (0.0-12.0); Neutrophils # (auto) 22.2 10 ^3/uL (1.6-8.6); Neutrophils % (auto) 88.8 % (37.0-80.0); Red Blood Cells 4.41 10^6/uL (4.5-5.90); Red Cell Distribution Width 13.8 % (11.8-14.3)
[2023-09-04 04:24] LABS: Alanine Aminotransferase 12 U/L (7-40); Albumin 2.4 g/dL (3.2-4.8); Alkaline Phosphatase 88 U/L (46-116); Anion Gap 16 (5-15); Aspartate Aminotransferase 109 U/L (13-40); BUN/Creatinine Ratio 19.9 (10.0-20.0); Calcium 6.8 mg/dL (8.7-10.4); Carbon Dioxide 18 mmol/L (20-30); Chloride 101 mmol/L (98-107); Glucose 151 mg/dL (74-106); Magnesium 2.1 mg/dL (1.6-2.6); Phosphorus 6.8 mg/dL (2.4-5.1); Potassium 4.2 mmol/L (3.5-5.1); Sodium 135 mmol/L (136-145)
[2023-09-04 04:25] LABS: Bilirubin, Total 0.2 mg/dL (0.2-1.0); Total Protein 4.9 g/dL (5.7-8.2)
[2023-09-04 04:35] LABS: Blood Urea Nitrogen 109 mg/dL (9-23)
[2023-09-04] MEDS: SODIUM CHL 0.9% 1000 ML BAG XX ONE (07:00)
[2023-09-04 07:40] LABS: Base Excess -6.6 mmol/L (-2.0-2.0)
[2023-09-04] MEDS: ENOXAPARIN SOD 30 MG/0.3 ML SYRINGE SC SCH (09:11)
[2023-09-04] MEDS: CEFEPIME 1GM/ 50ML 50 ML IV SCH (11:11)
[2023-09-04] MEDS: MICAFUNGIN SODIUM 100 MG in SODIUM CHL 0.9% 100 ML IV ONE (12:54)
[2023-09-04] MEDS: CALCIUM GLUC 1,000mg/50ml-NS 50 ML IV ONE (14:01)
[2023-09-04] MEDS: ALBUMIN 25% 100 ML IV ONE ×2 (17:15)
[2023-09-04] MEDS: CATHFLO ACTIVASE (ALTEPLASE) 2 MG VIAL IV ONE (18:28)
[2023-09-04] MEDS: TPN PER PHARMACY IV NR (20:06)
[2023-09-05] VITALS (108 sets, daily range): BP systolic 86–160; BP diastolic 41–78; PULSE 80–100; RESP 13–27; TEMP 98.5–101; O2SAT 92–99
[2023-09-05 02:55] LABS: Hematocrit 36.8 % (41.0-53.0); Mean Corpuscular Hemoglobin 28.5 pg (28.0-32.0); Mean Corpuscular Hgb Conc. 32.5 g/dL (32.0-36.0); Mean Corpuscular Volume 87.7 fL (80.0-100.0); Red Cell Distribution Width 13.5 % (11.8-14.3)
[2023-09-05 03:29] LABS: White Blood Cell 31.2 10^3/uL (4.4-10.8)
[2023-09-05 03:31] LABS: Basophils % (manual) 0 (0.0-2.0); Blast Cells 0; Eosinophils % (manual) 0 (0-7); Metamyelocytes % 0; Myelocytes % 0; Promyelocytes % 0; Reactive Lymphocytes 0
[2023-09-05 04:05] LABS: Band Neutrophils % (manual) 4
[2023-09-05 04:06] LABS: Lymphocytes % (manual) 7 (10.0-50.0); Monocytes % (manual) 2 (0-12); Platelet Estimate Adequate
[2023-09-05 05:01] LABS: Alanine Aminotransferase 11 U/L (7-40); Alkaline Phosphatase 75 U/L (46-116); Calcium 8.1 mg/dL (8.5-10.1); Carbon Dioxide 24 mmol/L (20-30); Chloride 101 mmol/L (98-107)
[2023-09-05 05:02] LABS: Anion Gap 13 (5-15); Aspartate Aminotransferase 71 U/L (13-40); BUN/Creatinine Ratio 18.4 (10.0-20.0); Bilirubin, Total 0.5 mg/dL (0.2-1.0); Blood Urea Nitrogen 79 mg/dL (9-23); Glucose 177 mg/dL (74-106); Potassium 3.4 mmol/L (3.5-5.1); Sodium 138 mmol/L (136-145); Total Protein 5.4 g/dL (5.7-8.2)
[2023-09-05 07:28] LABS: Base Excess -0.5 mmol/L (-2.0-2.0)
[2023-09-05] MEDS: MICAFUNGIN SODIUM 100 MG in SODIUM CHL 0.9% 100 ML IV SCH (09:51)
[2023-09-05] MEDS: POTASSIUM CHL 20MEQ/100ML 100 ML IV ONE (09:52)
[2023-09-05] MEDS: MEROPENEM 1GM IVPB 100 ML IV SCH (13:37)
[2023-09-05] MEDS ORDERED: CEFEPIME 1GM/ 50ML 50 ML IV SCH (15:00)
[2023-09-05] MEDS: FUROSEMIDE 40 MG/4 ML VIAL IV SCH (18:27)
[2023-09-05] MEDS: TPN PER PHARMACY IV NR (20:44)
[2023-09-06] VITALS (115 sets, daily range): BP systolic 76–154; BP diastolic 38–76; PULSE 84–97; RESP 19–26; TEMP 99.1–101.1; O2SAT 90–98
[2023-09-06 04:11] LABS: Hematocrit 36.3 % (41.0-53.0); Hemoglobin 11.4 g/dL (13.5-17.5); Mean Corpuscular Hemoglobin 27.7 pg (28.0-32.0); Mean Corpuscular Hgb Conc. 31.2 g/dL (32.0-36.0); Mean Corpuscular Volume 88.5 fL (80.0-100.0); Red Blood Cells 4.11 10^6/uL (4.5-5.90); Red Cell Distribution Width 13.9 % (11.8-14.3); White Blood Cell 26.7 10^3/uL (4.4-10.8)
[2023-09-06 04:19] LABS: Basophils % (manual) 0 (0.0-2.0); Blast Cells 0; Metamyelocytes % 0; Myelocytes % 0; Promyelocytes % 0; Reactive Lymphocytes 0
[2023-09-06 04:26] LABS: Albumin 2.6 g/dL (3.2-4.8); Alkaline Phosphatase 74 U/L (46-116); Anion Gap 14 (5-15); Aspartate Aminotransferase 44 U/L (13-40); BUN/Creatinine Ratio 20.4 (10.0-20.0); Bilirubin, Total 0.3 mg/dL (0.2-1.0); Calcium 8.1 mg/dL (8.7-10.4); Carbon Dioxide 21 mmol/L (20-30); Chloride 101 mmol/L (98-107); Glucose 185 mg/dL (74-106); Phosphorus 3.9 mg/dL (2.4-5.1); Potassium 3.4 mmol/L (3.5-5.1); Sodium 136 mmol/L (136-145); Total Protein 5.2 g/dL (5.7-8.2)
[2023-09-06 04:46] LABS: Alanine Aminotransferase < 9 U/L (7-40); Blood Urea Nitrogen 101 mg/dL (9-23)
[2023-09-06 06:36] LABS: Band Neutrophils % (manual) 1; Eosinophils % (manual) 2 (0-7); Lymphocytes % (manual) 3 (10.0-50.0); Monocytes % (manual) 3 (0-12); Platelet Estimate Adequate
[2023-09-06] MEDS: SODIUM CHL 0.9% 1000 ML BAG XX ONE (07:00)
[2023-09-06] MEDS: POTASSIUM CHL 20MEQ/100ML 100 ML IV ONE (10:02)
[2023-09-06] MEDS: TPN PER PHARMACY IV NR (20:26)
[2023-09-07] VITALS (105 sets, daily range): BP systolic 90–169; BP diastolic 43–104; PULSE 82–95; RESP 13–31; TEMP 98.6–100.2; O2SAT 92–100
[2023-09-07 04:08] LABS: Albumin 2.6 g/dL (3.2-4.8); Alkaline Phosphatase 73 U/L (46-116); Anion Gap 14 (5-15); Aspartate Aminotransferase 36 U/L (13-40); BUN/Creatinine Ratio 18.8 (10.0-20.0); Bilirubin, Total 0.2 mg/dL (0.2-1.0); Calcium 8.6 mg/dL (8.7-10.4); Carbon Dioxide 20 mmol/L (20-30); Chloride 102 mmol/L (98-107); Glucose 190 mg/dL (74-106); Hematocrit 34.3 % (41.0-53.0); Hemoglobin 11.3 g/dL (13.5-17.5); Magnesium 1.9 mg/dL (1.6-2.6); Mean Corpuscular Hemoglobin 29.3 pg (28.0-32.0); Mean Corpuscular Hgb Conc. 32.9 g/dL (32.0-36.0); Mean Corpuscular Volume 89.2 fL (80.0-100.0); Potassium 3.4 mmol/L (3.5-5.1); Red Blood Cells 3.85 10^6/uL (4.5-5.90); Red Cell Distribution Width 13.9 % (11.8-14.3); Sodium 136 mmol/L (136-145); Total Protein 5.4 g/dL (5.7-8.2); White Blood Cell 21.9 10^3/uL (4.4-10.8)
[2023-09-07 04:12] LABS: Band Neutrophils % (manual) 0; Basophils % (manual) 0 (0.0-2.0); Blast Cells 0; Metamyelocytes % 0; Myelocytes % 0; Promyelocytes % 0; Reactive Lymphocytes 0
[2023-09-07 04:24] LABS: Alanine Aminotransferase < 9 U/L (7-40)
[2023-09-07 04:25] LABS: Blood Urea Nitrogen 83 mg/dL (9-23)
[2023-09-07 05:00] LABS: Eosinophils % (manual) 4 (0-7); Lymphocytes % (manual) 12 (10.0-50.0); Monocytes % (manual) 4 (0-12); Platelet Estimate Adequate
[2023-09-07] MEDS: POTASSIUM CHL 20MEQ/100ML 100 ML IV ONE (10:29)
[2023-09-07] MEDS: TPN PER PHARMACY IV NR (20:29)
[2023-09-08] VITALS (110 sets, daily range): BP systolic 85–163; BP diastolic 43–75; PULSE 75–94; RESP 11–28; TEMP 94.3–100.2; O2SAT 92–99
[2023-09-08 04:10] LABS: Basophils # (auto) 0 10 ^3/uL (0-0.2); Basophils % (auto) 0.2 % (0.0-2.0); Eosinophils # (auto) 0.2 10 ^3/uL (0-0.8); Eosinophils % (auto) 1.2 % (0.0-7.0); Hematocrit 34.9 % (41.0-53.0); Hemoglobin 11.4 g/dL (13.5-17.5); Lymphocytes # (auto) 1.5 10 ^3/uL (0.4-5.4); Lymphocytes % (auto) 7.7 % (10.0-50.0); Mean Corpuscular Hemoglobin 29.3 pg (28.0-32.0); Mean Corpuscular Hgb Conc. 32.8 g/dL (32.0-36.0); Mean Corpuscular Volume 89.3 fL (80.0-100.0); Monocytes # (auto) 1.5 10 ^3/uL (0-1.3); Monocytes % (auto) 7.6 % (0.0-12.0); Neutrophils # (auto) 16.1 10 ^3/uL (1.6-8.6); Neutrophils % (auto) 83.3 % (37.0-80.0); Red Blood Cells 3.91 10^6/uL (4.5-5.90); Red Cell Distribution Width 13.9 % (11.8-14.3); White Blood Cell 19.3 10^3/uL (4.4-10.8)
[2023-09-08 04:36] LABS: Albumin 2.4 g/dL (3.2-4.8); Alkaline Phosphatase 75 U/L (46-116); Anion Gap 15 (5-15); Aspartate Aminotransferase 32 U/L (13-40); Calcium 8.7 mg/dL (8.7-10.4); Carbon Dioxide 19 mmol/L (20-30); Chloride 101 mmol/L (98-107); Glucose 210 mg/dL (74-106); Phosphorus 2.9 mg/dL (2.4-5.1); Potassium 3.6 mmol/L (3.5-5.1); Sodium 135 mmol/L (136-145)
[2023-09-08 04:37] LABS: Bilirubin, Total 0.2 mg/dL (0.2-1.0); Total Protein 5.6 g/dL (5.7-8.2)
[2023-09-08 05:16] LABS: Alanine Aminotransferase < 9 U/L (7-40)
[2023-09-08 05:17] LABS: Blood Urea Nitrogen 96 mg/dL (9-23)
[2023-09-08] MEDS: SODIUM CHL 0.9% 1000 ML BAG XX ONE (07:00)
[2023-09-08 07:42] LABS: Base Excess -4.3 mmol/L (-2.0-2.0)
[2023-09-08] MEDS: ACETAMINOPHEN 325 MG TAB PO PRN (15:10)
[2023-09-08] MEDS: TPN PER PHARMACY IV NR (21:28)
[2023-09-09] VITALS (109 sets, daily range): BP systolic 74–194; BP diastolic 39–87; PULSE 71–94; RESP 0–31; TEMP 96.4–100.6; O2SAT 95–100
[2023-09-09 04:00] LABS: Basophils # (auto) 0 10 ^3/uL (0-0.2); Basophils % (auto) 0.3 % (0.0-2.0); Eosinophils # (auto) 0.1 10 ^3/uL (0-0.8); Eosinophils % (auto) 0.8 % (0.0-7.0); Hematocrit 34.3 % (41.0-53.0); Hemoglobin 11.2 g/dL (13.5-17.5); Lymphocytes # (auto) 1.4 10 ^3/uL (0.4-5.4); Lymphocytes % (auto) 9.5 % (10.0-50.0); Mean Corpuscular Hemoglobin 29.1 pg (28.0-32.0); Mean Corpuscular Hgb Conc. 32.7 g/dL (32.0-36.0); Mean Corpuscular Volume 89.2 fL (80.0-100.0); Monocytes # (auto) 1.5 10 ^3/uL (0-1.3); Monocytes % (auto) 9.9 % (0.0-12.0); Neutrophils # (auto) 11.8 10 ^3/uL (1.6-8.6); Neutrophils % (auto) 79.5 % (37.0-80.0); Red Blood Cells 3.84 10^6/uL (4.5-5.90); Red Cell Distribution Width 14.1 % (11.8-14.3); White Blood Cell 14.9 10^3/uL (4.4-10.8)
[2023-09-09 04:03] LABS: Alanine Aminotransferase 10 U/L (7-40); Albumin 2.5 g/dL (3.2-4.8); Alkaline Phosphatase 80 U/L (46-116); Anion Gap 14 (5-15); Aspartate Aminotransferase 48 U/L (13-40); Bilirubin, Total 0.2 mg/dL (0.2-1.0); Carbon Dioxide 22 mmol/L (20-30); Chloride 102 mmol/L (98-107); Glucose 158 mg/dL (74-106); Phosphorus 3.6 mg/dL (2.4-5.1); Potassium 3.5 mmol/L (3.5-5.1); Sodium 138 mmol/L (136-145); Total Protein 5.9 g/dL (5.7-8.2); Triglycerides 152 mg/dL (< 150)
[2023-09-09 04:12] LABS: Blood Urea Nitrogen 106 mg/dL (9-23)
[2023-09-09 08:05] LABS: Base Excess -5.1 mmol/L (-2.0-2.0)
[2023-09-09] MEDS: NOREPINEPHRINE 8 MG/250ML KIT 250 ML IV SCH (17:15)
[2023-09-09] MEDS: TPN PER PHARMACY IV NR (20:03)
[2023-09-09 23:51] LABS: Potassium 3.4 mmol/L (3.5-5.1)
[2023-09-09 23:58] LABS: Magnesium 1.9 mg/dL (1.6-2.6)
[2023-09-10] VITALS (107 sets, daily range): BP systolic 80–170; BP diastolic 42–87; PULSE 76–108; RESP 0–30; TEMP 95–99.5; O2SAT 95–100
[2023-09-10 04:16] LABS: Basophils # (auto) 0.1 10 ^3/uL (0-0.2); Basophils % (auto) 0.8 % (0.0-2.0); Eosinophils # (auto) 0.1 10 ^3/uL (0-0.8); Eosinophils % (auto) 1.2 % (0.0-7.0); Hematocrit 31.9 % (41.0-53.0); Hemoglobin 10.6 g/dL (13.5-17.5); Lymphocytes # (auto) 1.5 10 ^3/uL (0.4-5.4); Lymphocytes % (auto) 12.2 % (10.0-50.0); Mean Corpuscular Hemoglobin 29.6 pg (28.0-32.0); Mean Corpuscular Hgb Conc. 33.3 g/dL (32.0-36.0); Mean Corpuscular Volume 88.7 fL (80.0-100.0); Monocytes # (auto) 1.4 10 ^3/uL (0-1.3); Monocytes % (auto) 11.2 % (0.0-12.0); Neutrophils % (auto) 74.6 % (37.0-80.0); Red Blood Cells 3.59 10^6/uL (4.5-5.90); Red Cell Distribution Width 13.9 % (11.8-14.3); White Blood Cell 12.1 10^3/uL (4.4-10.8)
[2023-09-10 04:33] LABS: Alkaline Phosphatase 79 U/L (46-116); Anion Gap 13 (5-15); BUN/Creatinine Ratio 17.9 (10.0-20.0); Calcium 8.4 mg/dL (8.7-10.4); Carbon Dioxide 20 mmol/L (20-30); Chloride 103 mmol/L (98-107); Glucose 158 mg/dL (74-106); Magnesium 1.9 mg/dL (1.6-2.6); Potassium 3.4 mmol/L (3.5-5.1); Sodium 136 mmol/L (136-145)
[2023-09-10 04:34] LABS: Albumin 2.4 g/dL (3.2-4.8); Aspartate Aminotransferase 45 U/L (13-40)
[2023-09-10 04:35] LABS: Alanine Aminotransferase < 9 U/L (7-40); Bilirubin, Total < 0.2 mg/dL (0.2-1.0); Blood Urea Nitrogen 78 mg/dL (9-23); Phosphorus 3.6 mg/dL (2.4-5.1); Total Protein 5.8 g/dL (5.7-8.2)
[2023-09-10 07:30] LABS: Base Excess -2.8 mmol/L (-2.0-2.0)
[2023-09-10] MEDS: POTASSIUM CHL 20MEQ/100ML 100 ML IV ONE (15:38)
[2023-09-10] MEDS: TPN PER PHARMACY IV NR (20:24)
[2023-09-11] VITALS (103 sets, daily range): BP systolic 80–161; BP diastolic 46–85; PULSE 81–108; RESP 0–44; TEMP 95–99.3; O2SAT 88–100
[2023-09-11 04:00] LABS: Albumin 2.6 g/dL (3.2-4.8); Alkaline Phosphatase 85 U/L (46-116); Anion Gap 12 (5-15); Aspartate Aminotransferase 44 U/L (13-40); BUN/Creatinine Ratio 22.4 (10.0-20.0); Calcium 8.6 mg/dL (8.7-10.4); Carbon Dioxide 22 mmol/L (20-30); Chloride 102 mmol/L (98-107); Glucose 143 mg/dL (74-106); Magnesium 1.9 mg/dL (1.6-2.6); Potassium 3.6 mmol/L (3.5-5.1); Sodium 136 mmol/L (136-145)
[2023-09-11 04:01] LABS: Bilirubin, Total 0.2 mg/dL (0.2-1.0); Phosphorus 3.7 mg/dL (2.4-5.1); Total Protein 6.2 g/dL (5.7-8.2)
[2023-09-11 04:08] LABS: Alanine Aminotransferase < 9 U/L (7-40); Blood Urea Nitrogen 103 mg/dL (9-23)
[2023-09-11 05:08] LABS: Basophils # (auto) 0.1 10 ^3/uL (0-0.2); Basophils % (auto) 0.9 % (0.0-2.0); Eosinophils # (auto) 0.1 10 ^3/uL (0-0.8); Eosinophils % (auto) 0.9 % (0.0-7.0); Hematocrit 31.4 % (41.0-53.0); Hemoglobin 10.3 g/dL (13.5-17.5); Lymphocytes # (auto) 1.4 10 ^3/uL (0.4-5.4); Lymphocytes % (auto) 12.7 % (10.0-50.0); Mean Corpuscular Hemoglobin 29.2 pg (28.0-32.0); Mean Corpuscular Volume 88.4 fL (80.0-100.0); Monocytes # (auto) 1.2 10 ^3/uL (0-1.3); Monocytes % (auto) 10.9 % (0.0-12.0); Neutrophils # (auto) 8.4 10 ^3/uL (1.6-8.6); Neutrophils % (auto) 74.6 % (37.0-80.0); Nucleated Red Blood Cells % 0.1 %; Red Blood Cells 3.55 10^6/uL (4.5-5.90); Red Cell Distribution Width 13.9 % (11.8-14.3); White Blood Cell 11.2 10^3/uL (4.4-10.8)
[2023-09-11 07:11] LABS: Base Excess -4.4 mmol/L (-2.0-2.0)
[2023-09-11] MEDS: CATHFLO ACTIVASE (ALTEPLASE) 2 MG VIAL IV ONE (11:30)
[2023-09-11] MEDS: LORazepam 2MG/ML-1ML VIAL IV PRN (13:21)
[2023-09-11] MEDS: SODIUM CHL 0.9% 1000 ML BAG XX ONE (17:45)
[2023-09-11] MEDS: POTASSIUM ACETATE IV NR (19:53)
[2023-09-11] MEDS: FAT EMULSION IV NR (19:53)
[2023-09-11] MEDS: SODIUM CHLORIDE IV NR (19:53)
[2023-09-11] MEDS: [UNRECOGNIZED DRUG - OTHER] IV NR (19:53)
[2023-09-11] MEDS: EPOETIN ALFA-EPBX 10,000 UNIT/1ML VIAL SC ONE (21:32)
[2023-09-12] VITALS (113 sets, daily range): BP systolic 79–189; BP diastolic 40–87; PULSE 86–113; RESP 11–30; TEMP 98.1–99.2; O2SAT 92–100
[2023-09-12 04:10] LABS: Basophils # (auto) 0.1 10 ^3/uL (0-0.2); Eosinophils # (auto) 0.1 10 ^3/uL (0-0.8); Eosinophils % (auto) 0.9 % (0.0-7.0); Hemoglobin 10.3 g/dL (13.5-17.5); Lymphocytes # (auto) 2.3 10 ^3/uL (0.4-5.4); Lymphocytes % (auto) 20.6 % (10.0-50.0); Mean Corpuscular Hemoglobin 29.6 pg (28.0-32.0); Mean Corpuscular Hgb Conc. 33.1 g/dL (32.0-36.0); Mean Corpuscular Volume 89.4 fL (80.0-100.0); Monocytes # (auto) 1.4 10 ^3/uL (0-1.3); Monocytes % (auto) 12.1 % (0.0-12.0); Neutrophils # (auto) 7.3 10 ^3/uL (1.6-8.6); Neutrophils % (auto) 65.4 % (37.0-80.0); Red Blood Cells 3.47 10^6/uL (4.5-5.90); Red Cell Distribution Width 14.6 % (11.8-14.3); White Blood Cell 11.2 10^3/uL (4.4-10.8)
[2023-09-12 04:30] LABS: Alanine Aminotransferase 12 U/L (7-40); Albumin 2.6 g/dL (3.2-4.8); Alkaline Phosphatase 101 U/L (46-116); Anion Gap 11 (5-15); Aspartate Aminotransferase 48 U/L (13-40); BUN/Creatinine Ratio 21.5 (10.0-20.0); Bilirubin, Total 0.2 mg/dL (0.2-1.0); Calcium 8.7 mg/dL (8.7-10.4); Carbon Dioxide 24 mmol/L (20-30); Chloride 101 mmol/L (98-107); Glucose 145 mg/dL (74-106); Magnesium 1.9 mg/dL (1.6-2.6); Phosphorus 3.2 mg/dL (2.4-5.1); Sodium 136 mmol/L (136-145); Total Protein 6.4 g/dL (5.7-8.2)
[2023-09-12 04:35] LABS: Blood Urea Nitrogen 73 mg/dL (9-23)
[2023-09-12 08:04] LABS: Base Excess 3.9 mmol/L (-2.0-2.0)
[2023-09-12] MEDS: SODIUM CHL 0.9% 1000 ML BAG XX ONE (10:00)
[2023-09-12] MEDS: ALBUMIN 25% 100 ML IV SCH (10:00)
[2023-09-12] MEDS: TPN PER PHARMACY IV NR (19:32)
[2023-09-13] VITALS (106 sets, daily range): BP systolic 85–148; BP diastolic 41–83; PULSE 91–117; RESP 13–28; TEMP 98.7–99.7; O2SAT 91–100
[2023-09-13 04:06] LABS: Basophils # (auto) 0.1 10 ^3/uL (0-0.2); Basophils % (auto) 1.3 % (0.0-2.0); Eosinophils # (auto) 0.2 10 ^3/uL (0-0.8); Eosinophils % (auto) 1.8 % (0.0-7.0); Hematocrit 29.9 % (41.0-53.0); Hemoglobin 9.9 g/dL (13.5-17.5); Lymphocytes # (auto) 2.1 10 ^3/uL (0.4-5.4); Lymphocytes % (auto) 24.1 % (10.0-50.0); Mean Corpuscular Hemoglobin 29.7 pg (28.0-32.0); Mean Corpuscular Hgb Conc. 33.1 g/dL (32.0-36.0); Mean Corpuscular Volume 89.8 fL (80.0-100.0); Monocytes # (auto) 1.1 10 ^3/uL (0-1.3); Neutrophils # (auto) 5.3 10 ^3/uL (1.6-8.6); Neutrophils % (auto) 60.8 % (37.0-80.0); Red Blood Cells 3.33 10^6/uL (4.5-5.90); Red Cell Distribution Width 14.8 % (11.8-14.3); White Blood Cell 8.8 10^3/uL (4.4-10.8)
[2023-09-13 04:28] LABS: Alanine Aminotransferase 12 U/L (7-40); Albumin 2.7 g/dL (3.2-4.8); Alkaline Phosphatase 96 U/L (46-116); Anion Gap 13 (5-15); Aspartate Aminotransferase 40 U/L (13-40); BUN/Creatinine Ratio 23.1 (10.0-20.0); Calcium 8.9 mg/dL (8.7-10.4); Carbon Dioxide 22 mmol/L (20-30); Chloride 103 mmol/L (98-107); Glucose 126 mg/dL (74-106); Potassium 3.9 mmol/L (3.5-5.1); Sodium 138 mmol/L (136-145)
[2023-09-13 04:29] LABS: Bilirubin, Total 0.2 mg/dL (0.2-1.0); Total Protein 6.5 g/dL (5.7-8.2)
[2023-09-13 04:47] LABS: Blood Urea Nitrogen 83 mg/dL (9-23)
[2023-09-13] MEDS: TPN PER PHARMACY IV NR (19:40)
[2023-09-14] VITALS (108 sets, daily range): BP systolic 79–150; BP diastolic 39–85; PULSE 81–105; RESP 13–25; TEMP 98–98.9; O2SAT 84–100
[2023-09-14] MEDS: MEROPENEM 500MG IVPB 50 ML IV SCH (00:26)
[2023-09-14 04:25] LABS: Alanine Aminotransferase 14 U/L (7-40); Albumin 2.8 g/dL (3.2-4.8); Alkaline Phosphatase 105 U/L (46-116); Anion Gap 11 (5-15); Aspartate Aminotransferase 43 U/L (13-40); BUN/Creatinine Ratio 21.6 (10.0-20.0); Calcium 8.9 mg/dL (8.7-10.4); Carbon Dioxide 23 mmol/L (20-30); Chloride 105 mmol/L (98-107); Glucose 121 mg/dL (74-106); Potassium 4.1 mmol/L (3.5-5.1); Sodium 139 mmol/L (136-145)
[2023-09-14 04:26] LABS: Bilirubin, Total 0.2 mg/dL (0.2-1.0)
[2023-09-14 04:35] LABS: Blood Urea Nitrogen 64 mg/dL (9-23)
[2023-09-14 07:43] LABS: Base Excess 3.2 mmol/L (-2.0-2.0)
[2023-09-14] MEDS: TPN PER PHARMACY IV NR (20:08)
[2023-09-15] VITALS (101 sets, daily range): BP systolic 87–173; BP diastolic 40–85; PULSE 74–134; RESP 0–34; TEMP 98.1–99.5; O2SAT 91–100
[2023-09-15 04:02] LABS: Basophils # (auto) 0.1 10 ^3/uL (0-0.2); Basophils % (auto) 1.4 % (0.0-2.0); Eosinophils # (auto) 0.1 10 ^3/uL (0-0.8); Eosinophils % (auto) 1.2 % (0.0-7.0); Hematocrit 29.8 % (41.0-53.0); Hemoglobin 9.8 g/dL (13.5-17.5); Lymphocytes # (auto) 1.8 10 ^3/uL (0.4-5.4); Lymphocytes % (auto) 22.4 % (10.0-50.0); Mean Corpuscular Hemoglobin 29.6 pg (28.0-32.0); Mean Corpuscular Hgb Conc. 32.7 g/dL (32.0-36.0); Mean Corpuscular Volume 90.5 fL (80.0-100.0); Monocytes # (auto) 0.8 10 ^3/uL (0-1.3); Monocytes % (auto) 10.4 % (0.0-12.0); Neutrophils # (auto) 5.1 10 ^3/uL (1.6-8.6); Neutrophils % (auto) 64.6 % (37.0-80.0); Red Blood Cells 3.29 10^6/uL (4.5-5.90); White Blood Cell 7.9 10^3/uL (4.4-10.8)
[2023-09-15 04:17] LABS: Alanine Aminotransferase 16 U/L (7-40); Alkaline Phosphatase 105 U/L (46-116); Anion Gap 8 (5-15); BUN/Creatinine Ratio 24.6 (10.0-20.0); Calcium 8.7 mg/dL (8.7-10.4); Carbon Dioxide 26 mmol/L (20-30); Chloride 104 mmol/L (98-107); Glucose 123 mg/dL (74-106); Magnesium 2.1 mg/dL (1.6-2.6); Potassium 4.1 mmol/L (3.5-5.1); Sodium 138 mmol/L (136-145)
[2023-09-15 04:18] LABS: Albumin 2.7 g/dL (3.2-4.8); Aspartate Aminotransferase 46 U/L (13-40); Bilirubin, Total 0.2 mg/dL (0.2-1.0); Phosphorus 4.3 mg/dL (2.4-5.1); Total Protein 6.8 g/dL (5.7-8.2)
[2023-09-15 04:22] LABS: Blood Urea Nitrogen 82 mg/dL (9-23)
[2023-09-15] MEDS: SODIUM CHL 0.9% 1000 ML BAG XX ONE (07:00)
[2023-09-15 07:32] LABS: Base Excess -1.8 mmol/L (-2.0-2.0)
[2023-09-15 11:11] LABS: Base Excess -0.1 mmol/L (-2.0-2.0)
[2023-09-15] MEDS ORDERED: HALOPERIDOL LACTATE 5 MG/ML INJ VIAL IM ONE (15:15)
[2023-09-15] MEDS: HALOPERIDOL LACTATE 5 MG/ML INJ VIAL IV ONE (15:52)
[2023-09-15] MEDS: MORPHINE SULFATE INJ 2 MG/ml SYRG IV PRN (18:56)
[2023-09-15] MEDS ORDERED: HALOPERIDOL LACTATE 5 MG/ML INJ VIAL IM PRN (19:15)
[2023-09-15] MEDS: TPN PER PHARMACY IV NR (19:57)
[2023-09-15] MEDS: LORazepam 2MG/ML-1ML VIAL IV PRN (20:20)
[2023-09-15] MEDS: EPOETIN ALFA-EPBX 10,000 UNIT/1ML VIAL SC ONE (20:47)
[2023-09-16] VITALS (51 sets, daily range): BP systolic 91–155; BP diastolic 39–94; PULSE 95–118; RESP 8–32; TEMP 98.6–99.2; O2SAT 98–100
[2023-09-16] MEDS: LABETALOL HCL 5 MG/ML 4ML SYRINGE IV PRN (00:53)
[2023-09-16 03:43] LABS: Basophils # (auto) 0.1 10 ^3/uL (0-0.2); Basophils % (auto) 1.2 % (0.0-2.0); Eosinophils # (auto) 0.1 10 ^3/uL (0-0.8); Eosinophils % (auto) 1.1 % (0.0-7.0); Hematocrit 29.5 % (41.0-53.0); Mean Corpuscular Hgb Conc. 33.8 g/dL (32.0-36.0); Mean Corpuscular Volume 88.9 fL (80.0-100.0); Monocytes # (auto) 1.1 10 ^3/uL (0-1.3); Monocytes % (auto) 12.5 % (0.0-12.0); Neutrophils # (auto) 5.5 10 ^3/uL (1.6-8.6); Neutrophils % (auto) 62.2 % (37.0-80.0); Nucleated Red Blood Cells % 0.1 %; Red Blood Cells 3.32 10^6/uL (4.5-5.90); Red Cell Distribution Width 15.3 % (11.8-14.3); White Blood Cell 8.9 10^3/uL (4.4-10.8)
[2023-09-16 03:57] LABS: Alanine Aminotransferase 16 U/L (7-40); Alkaline Phosphatase 112 U/L (46-116); Anion Gap 10 (5-15); Aspartate Aminotransferase 53 U/L (13-40); BUN/Creatinine Ratio 23.5 (10.0-20.0); Carbon Dioxide 23 mmol/L (20-30); Chloride 105 mmol/L (98-107); Glucose 117 mg/dL (74-106); Potassium 4.1 mmol/L (3.5-5.1); Sodium 138 mmol/L (136-145)
[2023-09-16 03:58] LABS: Bilirubin, Total 0.3 mg/dL (0.2-1.0); Blood Urea Nitrogen 65 mg/dL (9-23); Phosphorus 3.7 mg/dL (2.4-5.1); Total Protein 7.3 g/dL (5.7-8.2)
[2023-09-16 04:12] LABS: Triglycerides 178 mg/dL (< 150)
[2023-09-16] MEDS: TPN PER PHARMACY IV NR (19:50)
[2023-09-16] MEDS: HALOPERIDOL LACTATE 5 MG/ML INJ VIAL IV PRN (20:43)
[2023-09-17] VITALS (48 sets, daily range): BP systolic 99–149; BP diastolic 59–92; PULSE 102–126; RESP 13–34; TEMP 97.3–98.9; O2SAT 79–100
[2023-09-17 04:34] LABS: Alanine Aminotransferase 17 U/L (7-40); Albumin 3.1 g/dL (3.2-4.8); Alkaline Phosphatase 119 U/L (46-116); Anion Gap 11 (5-15); Aspartate Aminotransferase 48 U/L (13-40); BUN/Creatinine Ratio 25.3 (10.0-20.0); Calcium 9.3 mg/dL (8.7-10.4); Carbon Dioxide 23 mmol/L (20-30); Chloride 106 mmol/L (98-107); Glucose 90 mg/dL (74-106); Magnesium 2.3 mg/dL (1.6-2.6); Potassium 4.2 mmol/L (3.5-5.1); Sodium 140 mmol/L (136-145)
[2023-09-17 04:35] LABS: Bilirubin, Total 0.3 mg/dL (0.2-1.0); Phosphorus 4.1 mg/dL (2.4-5.1); Total Protein 7.6 g/dL (5.7-8.2)
[2023-09-17 04:44] LABS: Blood Urea Nitrogen 82 mg/dL (9-23)
[2023-09-17] MEDS: SODIUM CHL 0.9% 1000 ML BAG XX ONE (07:00)
[2023-09-17] MEDS: CATHFLO ACTIVASE (ALTEPLASE) 2 MG VIAL IV ONE (08:21)
[2023-09-17] MEDS: diphenhdrAMINE HCL 50 MG/1 ML VL IV PRN (14:44)
[2023-09-17] MEDS: MORPHINE SULFATE INJ 2 MG/ml SYRG IV PRN (14:45)
[2023-09-17] MEDS: TPN PER PHARMACY IV NR (19:47)
[2023-09-17] MEDS: EPOETIN ALFA-EPBX 10,000 UNIT/1ML VIAL SC ONE (21:24)
[2023-09-18] VITALS (49 sets, daily range): BP systolic 109–153; BP diastolic 59–94; PULSE 101–123; RESP 16–29; TEMP 98.2–99.7; O2SAT 95–98
[2023-09-18 04:34] LABS: Alanine Aminotransferase 23 U/L (7-40); Albumin 3.3 g/dL (3.2-4.8); Alkaline Phosphatase 147 U/L (46-116); Anion Gap 12 (5-15); Aspartate Aminotransferase 58 U/L (13-40); BUN/Creatinine Ratio 25.1 (10.0-20.0); Bilirubin, Total 0.3 mg/dL (0.2-1.0); Calcium 9.5 mg/dL (8.7-10.4); Carbon Dioxide 20 mmol/L (20-30); Chloride 107 mmol/L (98-107); Glucose 123 mg/dL (74-106); Magnesium 2.6 mg/dL (1.6-2.6); Phosphorus 4.6 mg/dL (2.4-5.1); Potassium 4.9 mmol/L (3.5-5.1); Sodium 139 mmol/L (136-145)
[2023-09-18 04:35] LABS: Total Protein 8.3 g/dL (5.7-8.2)
[2023-09-18 05:06] LABS: Blood Urea Nitrogen 86 mg/dL (9-23)
[2023-09-18] MEDS: METOPROLOL TARTRATE 25 MG TAB PO ONE (12:26)
[2023-09-18] MEDS: SOD CHL 0.45% 1,000 ML IV SCH (15:54)
[2023-09-18] MEDS: TPN PER PHARMACY IV NR (19:43)
[2023-09-18] MEDS: METOPROLOL TARTRATE 25 MG TAB PO SCH (21:56)
[2023-09-19] VITALS (53 sets, daily range): BP systolic 104–161; BP diastolic 59–92; PULSE 92–114; RESP 17–27; TEMP 97.6–99.9; O2SAT 97–100
[2023-09-19 04:11] LABS: Basophils # (auto) 0.1 10 ^3/uL (0-0.2); Basophils % (auto) 1.2 % (0.0-2.0); Eosinophils # (auto) 0.4 10 ^3/uL (0-0.8); Eosinophils % (auto) 3.8 % (0.0-7.0); Hematocrit 32.7 % (41.0-53.0); Hemoglobin 10.8 g/dL (13.5-17.5); Lymphocytes % (auto) 28.7 % (10.0-50.0); Mean Corpuscular Hemoglobin 30.6 pg (28.0-32.0); Mean Corpuscular Hgb Conc. 33.1 g/dL (32.0-36.0); Mean Corpuscular Volume 92.2 fL (80.0-100.0); Monocytes # (auto) 1.5 10 ^3/uL (0-1.3); Monocytes % (auto) 14.6 % (0.0-12.0); Neutrophils # (auto) 5.4 10 ^3/uL (1.6-8.6); Neutrophils % (auto) 51.7 % (37.0-80.0); Nucleated Red Blood Cells % 0.2 %; Red Blood Cells 3.54 10^6/uL (4.5-5.90); Red Cell Distribution Width 16.9 % (11.8-14.3); White Blood Cell 10.5 10^3/uL (4.4-10.8)
[2023-09-19 04:18] LABS: Alanine Aminotransferase 29 U/L (7-40); Albumin 3.2 g/dL (3.2-4.8); Alkaline Phosphatase 151 U/L (46-116); Anion Gap 11 (5-15); Aspartate Aminotransferase 67 U/L (13-40); BUN/Creatinine Ratio 27.6 (10.0-20.0); Calcium 9.4 mg/dL (8.7-10.4); Carbon Dioxide 20 mmol/L (20-30); Chloride 106 mmol/L (98-107); Glucose 126 mg/dL (74-106); Magnesium 2.5 mg/dL (1.6-2.6); Potassium 4.5 mmol/L (3.5-5.1); Sodium 137 mmol/L (136-145)
[2023-09-19 04:19] LABS: Bilirubin, Total 0.3 mg/dL (0.2-1.0); Phosphorus 4.6 mg/dL (2.4-5.1)
[2023-09-19 04:28] LABS: Blood Urea Nitrogen 111 mg/dL (9-23)
[2023-09-19] MEDS: SODIUM CHL 0.9% 1000 ML BAG XX ONE (07:00)
[2023-09-19] MEDS ORDERED: CATHFLO ACTIVASE (ALTEPLASE) 2 MG VIAL IV PRN (13:45)
[2023-09-19] MEDS: TPN PER PHARMACY IV NR (20:23)
[2023-09-20] VITALS (71 sets, daily range): BP systolic 103–143; BP diastolic 56–83; PULSE 84–111; RESP 10–28; TEMP 97.8–98.7; O2SAT 96–100
[2023-09-20 03:46] LABS: Hematocrit 32.1 % (41.0-53.0); Hemoglobin 10.6 g/dL (13.5-17.5); Mean Corpuscular Hemoglobin 30.5 pg (28.0-32.0); Mean Corpuscular Hgb Conc. 33.1 g/dL (32.0-36.0); Mean Corpuscular Volume 92.2 fL (80.0-100.0); Red Blood Cells 3.48 10^6/uL (4.5-5.90); Red Cell Distribution Width 16.2 % (11.8-14.3)
[2023-09-20 03:56] LABS: Basophils % (manual) 0 (0.0-2.0); Blast Cells 0; Metamyelocytes % 0; Myelocytes % 0; Promyelocytes % 0; Reactive Lymphocytes 0
[2023-09-20 04:00] LABS: INR 1.13 (0.9-1.15); Partial Thromboplastin Time 28.6 SEC (24.5-34.5); Prothrombin Time 11.8 sec (9.3-11.8)
[2023-09-20 04:01] LABS: Alanine Aminotransferase 44 U/L (7-40); Albumin 3.1 g/dL (3.2-4.8); Alkaline Phosphatase 153 U/L (46-116); Anion Gap 9 (5-15); Aspartate Aminotransferase 102 U/L (13-40); BUN/Creatinine Ratio 24.2 (10.0-20.0); Calcium 9.1 mg/dL (8.7-10.4); Carbon Dioxide 22 mmol/L (20-30); Chloride 103 mmol/L (98-107); Glucose 115 mg/dL (74-106); Magnesium 1.8 mg/dL (1.6-2.6); Potassium 3.8 mmol/L (3.5-5.1); Sodium 134 mmol/L (136-145)
[2023-09-20 04:02] LABS: Bilirubin, Total 0.3 mg/dL (0.2-1.0); Phosphorus 4.4 mg/dL (2.4-5.1); Total Protein 7.6 g/dL (5.7-8.2)
[2023-09-20 04:05] LABS: Blood Urea Nitrogen 74 mg/dL (9-23)
[2023-09-20 04:33] LABS: Band Neutrophils % (manual) 2; Eosinophils % (manual) 4 (0-7); Lymphocytes % (manual) 27 (10.0-50.0); Monocytes % (manual) 17 (0-12); Platelet Estimate Adequate
[2023-09-20 19:08] LABS: Potassium 4.3 mmol/L (3.5-5.1)
[2023-09-20 19:15] LABS: Magnesium 1.7 mg/dL (1.6-2.6)
[2023-09-20] MEDS: SODIUM CHLORIDE 0.9% 1,000 ML IV SCH (19:24)
[2023-09-20] MEDS: MAGNESIUM SULFATE 1GM/100ML 100 ML IV SCH (20:12)
[2023-09-20] MEDS: TPN PER PHARMACY IV NR (20:15)
[2023-09-20] MEDS: POTASSIUM CHL 20MEQ/100ML 100 ML IV ONE (23:05)
[2023-09-20] MEDS: MORPHINE SULFATE INJ 2 MG/ml SYRG IV PRN (23:28)
[2023-09-21] VITALS (43 sets, daily range): BP systolic 102–145; BP diastolic 54–92; PULSE 76–103; RESP 12–21; TEMP 97.8–98.3; O2SAT 96–100
[2023-09-21 04:23] LABS: Hematocrit 33.6 % (41.0-53.0); Hemoglobin 11.1 g/dL (13.5-17.5); Mean Corpuscular Hemoglobin 30.7 pg (28.0-32.0); Mean Corpuscular Hgb Conc. 33.2 g/dL (32.0-36.0); Mean Corpuscular Volume 92.6 fL (80.0-100.0); Red Blood Cells 3.63 10^6/uL (4.5-5.90); Red Cell Distribution Width 16.2 % (11.8-14.3); White Blood Cell 11.2 10^3/uL (4.4-10.8)
[2023-09-21 04:36] LABS: INR 1.09 (0.9-1.15); Partial Thromboplastin Time 23.1 SEC (24.5-34.5); Prothrombin Time 11.4 sec (9.3-11.8)
[2023-09-21 04:42] LABS: Alanine Aminotransferase 47 U/L (7-40); Albumin 3.2 g/dL (3.2-4.8); Alkaline Phosphatase 170 U/L (46-116); Aspartate Aminotransferase 89 U/L (13-40); Bilirubin, Total 0.2 mg/dL (0.2-1.0); Calcium 9.5 mg/dL (8.7-10.4); Chloride 103 mmol/L (98-107); Magnesium 2.5 mg/dL (1.6-2.6); Phosphorus 3.9 mg/dL (2.4-5.1); Potassium 4.1 mmol/L (3.5-5.1); Sodium 133 mmol/L (136-145); Total Protein 7.8 g/dL (5.7-8.2)
[2023-09-21 04:44] LABS: Band Neutrophils % (manual) 0; Basophils % (manual) 0 (0.0-2.0); Blast Cells 0; Metamyelocytes % 0; Myelocytes % 0; Promyelocytes % 0; Reactive Lymphocytes 0
[2023-09-21 04:56] LABS: Glucose 100 mg/dL (74-106)
[2023-09-21 05:20] LABS: Eosinophils % (manual) 4 (0-7); Lymphocytes % (manual) 26 (10.0-50.0); Monocytes % (manual) 24 (0-12)
[2023-09-21 05:21] LABS: Platelet Estimate Adequate
[2023-09-21 05:32] LABS: Blood Urea Nitrogen 83 mg/dL (9-23)
[2023-09-21 05:42] LABS: Anion Gap 12 (5-15); Carbon Dioxide 18 mmol/L (20-30)
[2023-09-21] MEDS: TPN PER PHARMACY IV NR (19:20)
[2023-09-22] VITALS (7 sets, daily range): BP systolic 102–137; BP diastolic 55–78; PULSE 100–112; RESP 17–19; TEMP 98.2–98.7; O2SAT 95–98
[2023-09-22 05:56] LABS: Hematocrit 32.8 % (41.0-53.0); Mean Corpuscular Hemoglobin 31.1 pg (28.0-32.0); Mean Corpuscular Hgb Conc. 33.7 g/dL (32.0-36.0); Mean Corpuscular Volume 92.5 fL (80.0-100.0); Red Blood Cells 3.55 10^6/uL (4.5-5.90); Red Cell Distribution Width 16.6 % (11.8-14.3); White Blood Cell 11.8 10^3/uL (4.4-10.8)
[2023-09-22 06:05] LABS: Alanine Aminotransferase 52 U/L (7-40); Albumin 3.2 g/dL (3.2-4.8); Alkaline Phosphatase 184 U/L (46-116); Anion Gap 12 (5-15); Aspartate Aminotransferase 86 U/L (13-40); BUN/Creatinine Ratio 28.9 (10.0-20.0); Calcium 9.9 mg/dL (8.7-10.4); Carbon Dioxide 18 mmol/L (20-30); Chloride 103 mmol/L (98-107); Glucose 129 mg/dL (74-106); Magnesium 2.5 mg/dL (1.6-2.6); Potassium 4.2 mmol/L (3.5-5.1); Sodium 133 mmol/L (136-145)
[2023-09-22 06:06] LABS: Bilirubin, Total 0.2 mg/dL (0.2-1.0); Phosphorus 4.2 mg/dL (2.4-5.1); Total Protein 7.3 g/dL (5.7-8.2)
[2023-09-22 06:19] LABS: Blast Cells 0; Metamyelocytes % 0; Myelocytes % 0; Promyelocytes % 0
[2023-09-22 06:27] LABS: Blood Urea Nitrogen 96 mg/dL (9-23)
[2023-09-22 08:05] LABS: Band Neutrophils % (manual) 7; Lymphocytes % (manual) 23 (10.0-50.0)
[2023-09-22 08:06] LABS: Basophils % (manual) 0 (0.0-2.0); Eosinophils % (manual) 2 (0-7); Monocytes % (manual) 16 (0-12); Reactive Lymphocytes 1
[2023-09-22 08:07] LABS: Anisocytosis Slight; Platelet Estimate Adequate
[2023-09-22] MEDS: SODIUM CHL 0.9% 1000 ML BAG XX ONE ×2 (12:24→12:25)
[2023-09-22] MEDS: TPN PER PHARMACY IV NR (20:02)
[2023-09-22] MEDS: SODIUM BICARBONATE 650 MG TAB PO SCH (23:08)
[2023-09-23] VITALS (7 sets, daily range): BP systolic 101–152; BP diastolic 55–79; PULSE 95–108; RESP 17–21; TEMP 98–98.7; O2SAT 97–100
[2023-09-23 06:23] LABS: Alanine Aminotransferase 45 U/L (7-40); Alkaline Phosphatase 161 U/L (46-116); Anion Gap 9 (5-15); BUN/Creatinine Ratio 26.5 (10.0-20.0); Calcium 9.1 mg/dL (8.7-10.4); Carbon Dioxide 21 mmol/L (20-30); Chloride 104 mmol/L (98-107); Glucose 113 mg/dL (74-106); Magnesium 1.9 mg/dL (1.6-2.6); Potassium 3.8 mmol/L (3.5-5.1); Sodium 134 mmol/L (136-145)
[2023-09-23 06:24] LABS: Albumin 2.8 g/dL (3.2-4.8); Aspartate Aminotransferase 87 U/L (13-40); Bilirubin, Total 0.2 mg/dL (0.2-1.0); Phosphorus 4.1 mg/dL (2.4-5.1); Total Protein 6.7 g/dL (5.7-8.2)
[2023-09-23 06:55] LABS: Blood Urea Nitrogen 74 mg/dL (9-23)
[2023-09-23] MEDS: SODIUM CHL 0.9% 1000 ML BAG XX ONE (07:00)
[2023-09-23] MEDS: TPN PER PHARMACY IV NR (20:23)
[2023-09-24] VITALS (7 sets, daily range): BP systolic 130–149; BP diastolic 72–85; PULSE 100–120; RESP 18–20; TEMP 98.4–98.7; O2SAT 96–99
[2023-09-24 06:51] LABS: Alanine Aminotransferase 54 U/L (7-40); Alkaline Phosphatase 171 U/L (46-116); Anion Gap 10 (5-15); Aspartate Aminotransferase 98 U/L (13-40); BUN/Creatinine Ratio 29.3 (10.0-20.0); Calcium 9.8 mg/dL (8.5-10.1); Carbon Dioxide 20 mmol/L (20-30); Chloride 106 mmol/L (98-107); Glucose 122 mg/dL (74-106); Potassium 5.1 mmol/L (3.5-5.1); Sodium 136 mmol/L (136-145); Triglycerides 245 mg/dL (< 150)
[2023-09-24 06:52] LABS: Albumin 3.2 g/dL (3.2-4.8); Bilirubin, Total 0.3 mg/dL (0.2-1.0); Phosphorus 4.7 mg/dL (2.4-5.1); Total Protein 7.6 g/dL (5.7-8.2)
[2023-09-24 06:57] LABS: Blood Urea Nitrogen 89 mg/dL (9-23)
[2023-09-24] MEDS: MORPHINE SULFATE INJ 2 MG/ml SYRG IV PRN (17:40)
[2023-09-24] MEDS ORDERED: TPN PER PHARMACY IV NR (20:00)
[2023-09-25 00:51] VITALS: BP 116/75; PULSE 94; RESP 20
[2023-09-25 06:23] LABS: Hematocrit 31.9 % (41.0-53.0); Hemoglobin 10.7 g/dL (13.5-17.5); Mean Corpuscular Hemoglobin 30.9 pg (28.0-32.0); Mean Corpuscular Hgb Conc. 33.5 g/dL (32.0-36.0); Mean Corpuscular Volume 92.2 fL (80.0-100.0); Red Blood Cells 3.45 10^6/uL (4.5-5.90); Red Cell Distribution Width 18.3 % (11.8-14.3); White Blood Cell 10.8 10^3/uL (4.4-10.8)
[2023-09-25 06:29] LABS: Band Neutrophils % (manual) 0; Basophils % (manual) 0 (0.0-2.0); Blast Cells 0; Metamyelocytes % 0; Myelocytes % 0; Promyelocytes % 0; Reactive Lymphocytes 0
[2023-09-25 07:49] LABS: Eosinophils % (manual) 2 (0-7); Lymphocytes % (manual) 19 (10.0-50.0); Monocytes % (manual) 14 (0-12); Platelet Estimate Adequate
[2023-09-25 08:00] VITALS: PULSE 78; RESP 18; O2SAT 98
[2023-09-25 08:40] VITALS: BP 116/66; PULSE 93; RESP 19; TEMP 97.9; O2SAT 96
[2023-09-25 12:32] VITALS: BP 130/79; PULSE 97; RESP 21; TEMP 98.1; O2SAT 100
[2023-09-25] MEDS: ALBUMIN 25% 100 ML IV ONE ×2 (16:00)
[2023-09-25 17:09] VITALS: BP 133/79; PULSE 114; RESP 20; TEMP 98.4; O2SAT 98
[2023-09-25 20:00] VITALS: PULSE 108; PULSE 119; RESP 20; O2SAT 98
[2023-09-26 05:00] VITALS: BP 139/76; PULSE 109; RESP 20; TEMP 98.8; O2SAT 98
[2023-09-26 05:33] LABS: Anion Gap 13 (5-15); Carbon Dioxide 23 mmol/L (20-30); Chloride 102 mmol/L (98-107); Sodium 138 mmol/L (136-145)
[2023-09-26 05:39] LABS: BUN/Creatinine Ratio 17.6 (10.0-20.0); Glucose 117 mg/dL (74-106)
[2023-09-26 05:43] LABS: Blood Urea Nitrogen 51 mg/dL (9-23)
[2023-09-26 08:00] VITALS: PULSE 107; RESP 16; O2SAT 98
[2023-09-26] MEDS ORDERED: fentaNYL CITRATE 100 MCG/2 ML VL ONE (09:33)
[2023-09-26] MEDS: HYDROcodone-ACET 5/325MG TAB PO PRN (12:29)
[2023-09-26 12:35] VITALS: BP 117/79; PULSE 109; RESP 17; TEMP 98; O2SAT 99
[2023-09-26 20:00] VITALS: PULSE 113; PULSE 117; RESP 20; O2SAT 97
[2023-09-26] MEDS: risperiDONE 1 MG TAB PO SCH (21:03)
[2023-09-26 22:00] VITALS: BP 120/73; PULSE 113; RESP 20; TEMP 97.8; O2SAT 97
[2023-09-27] VITALS (7 sets, daily range): BP systolic 102–138; BP diastolic 70–91; PULSE 90–128; RESP 16–20; TEMP 97.7–98.2; O2SAT 90–98
[2023-09-27] MEDS ORDERED: HALOPERIDOL LACTATE 5 MG/ML INJ VIAL IM PRN (10:00)
[2023-09-27] MEDS: ONDANSETRON HCL 4 MG/2 ML VIAL IV PRN (10:01)
[2023-09-27] MEDS: LACTULOSE 20Gm/30ML SOLN PO SCH (10:02)
[2023-09-28] VITALS (7 sets, daily range): BP systolic 92–136; BP diastolic 65–89; PULSE 100–118; RESP 16–20; TEMP 97.5–97.9; O2SAT 96–100
[2023-09-28 06:33] LABS: Anion Gap 15 (5-15); Carbon Dioxide 21 mmol/L (20-30); Chloride 96 mmol/L (98-107); Potassium 4.7 mmol/L (3.5-5.1)
[2023-09-28 06:34] LABS: Calcium 9.6 mg/dL (8.7-10.4)
[2023-09-28 06:36] LABS: Basophils # (auto) 0.1 10 ^3/uL (0-0.2); Basophils % (auto) 0.5 % (0.0-2.0); Eosinophils # (auto) 0 10 ^3/uL (0-0.8); Eosinophils % (auto) 0.2 % (0.0-7.0); Hematocrit 34.9 % (41.0-53.0); Hemoglobin 11.5 g/dL (13.5-17.5); Lymphocytes # (auto) 2.2 10 ^3/uL (0.4-5.4); Lymphocytes % (auto) 14.5 % (10.0-50.0); Mean Corpuscular Hemoglobin 30.2 pg (28.0-32.0); Mean Corpuscular Hgb Conc. 32.9 g/dL (32.0-36.0); Mean Corpuscular Volume 91.8 fL (80.0-100.0); Monocytes # (auto) 1.4 10 ^3/uL (0-1.3); Monocytes % (auto) 9.2 % (0.0-12.0); Neutrophils # (auto) 11.4 10 ^3/uL (1.6-8.6); Neutrophils % (auto) 75.6 % (37.0-80.0); Nucleated Red Blood Cells % 0.1 %; Red Cell Distribution Width 17.8 % (11.8-14.3); White Blood Cell 15.1 10^3/uL (4.4-10.8)
[2023-09-28 06:39] LABS: BUN/Creatinine Ratio 11.4 (10.0-20.0); Blood Urea Nitrogen 47 mg/dL (9-23); Glucose 101 mg/dL (74-106); Magnesium 2.1 mg/dL (1.6-2.6)
[2023-09-28 06:42] LABS: Sodium 132 mmol/L (136-145)
[2023-09-29] VITALS (7 sets, daily range): BP systolic 100–114; BP diastolic 59–77; PULSE 101–111; RESP 16–20; TEMP 98–98.5; O2SAT 95–98
[2023-09-29 09:37] LABS: Anion Gap 15 (5-15); Basophils # (auto) 0.1 10 ^3/uL (0-0.2); Basophils % (auto) 0.5 % (0.0-2.0); Carbon Dioxide 21 mmol/L (20-30); Chloride 94 mmol/L (98-107); Eosinophils # (auto) 0 10 ^3/uL (0-0.8); Eosinophils % (auto) 0.3 % (0.0-7.0); Hematocrit 34.7 % (41.0-53.0); Hemoglobin 11.3 g/dL (13.5-17.5); Lymphocytes % (auto) 15.3 % (10.0-50.0); Mean Corpuscular Hemoglobin 30.1 pg (28.0-32.0); Mean Corpuscular Hgb Conc. 32.6 g/dL (32.0-36.0); Mean Corpuscular Volume 92.6 fL (80.0-100.0); Monocytes % (auto) 7.5 % (0.0-12.0); Neutrophils # (auto) 9.9 10 ^3/uL (1.6-8.6); Neutrophils % (auto) 76.4 % (37.0-80.0); Potassium 4.1 mmol/L (3.5-5.1); Red Blood Cells 3.75 10^6/uL (4.5-5.90); Red Cell Distribution Width 17.8 % (11.8-14.3); Sodium 130 mmol/L (136-145); White Blood Cell 12.9 10^3/uL (4.4-10.8)
[2023-09-29 09:38] LABS: Calcium 9.2 mg/dL (8.5-10.1)
[2023-09-29 09:43] LABS: BUN/Creatinine Ratio 11.4 (10.0-20.0); Glucose 150 mg/dL (74-106)
[2023-09-29 09:52] LABS: Blood Urea Nitrogen 60 mg/dL (9-23)
[2023-09-30] VITALS (8 sets, daily range): BP systolic 100–135; BP diastolic 68–75; PULSE 102–122; RESP 16–20; TEMP 98–98.6; O2SAT 94–99
[2023-09-30 11:19] LABS: Basophils # (auto) 0.1 10 ^3/uL (0-0.2); Basophils % (auto) 0.6 % (0.0-2.0); Eosinophils # (auto) 0.1 10 ^3/uL (0-0.8); Eosinophils % (auto) 0.4 % (0.0-7.0); Hematocrit 39.8 % (41.0-53.0); Hemoglobin 12.6 g/dL (13.5-17.5); Lymphocytes # (auto) 2.3 10 ^3/uL (0.4-5.4); Lymphocytes % (auto) 15.5 % (10.0-50.0); Mean Corpuscular Hemoglobin 30.3 pg (28.0-32.0); Mean Corpuscular Hgb Conc. 31.7 g/dL (32.0-36.0); Mean Corpuscular Volume 95.4 fL (80.0-100.0); Monocytes # (auto) 1.6 10 ^3/uL (0-1.3); Monocytes % (auto) 11.3 % (0.0-12.0); Neutrophils # (auto) 10.5 10 ^3/uL (1.6-8.6); Neutrophils % (auto) 72.2 % (37.0-80.0); Nucleated Red Blood Cells % 0.1 %; Red Blood Cells 4.17 10^6/uL (4.5-5.90); Red Cell Distribution Width 17.9 % (11.8-14.3); White Blood Cell 14.5 10^3/uL (4.4-10.8)
[2023-09-30 11:35] LABS: Chloride 94 mmol/L (98-107); Potassium 4.6 mmol/L (3.5-5.1); Sodium 131 mmol/L (136-145)
[2023-09-30 11:36] LABS: Anion Gap 15 (5-15); Calcium 9.7 mg/dL (8.5-10.1); Carbon Dioxide 22 mmol/L (20-30)
[2023-09-30 11:41] LABS: BUN/Creatinine Ratio 9.7 (10.0-20.0); Glucose 108 mg/dL (74-106)
[2023-09-30 11:47] LABS: Blood Urea Nitrogen 49 mg/dL (9-23)
[2023-10-01 04:56] VITALS: BP 111/58; PULSE 97; RESP 17; TEMP 98.5; O2SAT 95
[2023-10-01] MEDS: LIDOCAINE 2%HCL (LOCAL ANESTH.) INJ 10ml MDV ONE (07:34)
[2023-10-01] MEDS: IOHEXOL 300 MG/ML 100ML BOTTLE IJ ONE (07:34)
[2023-10-01] MEDS: HEPARIN SODIUM (PORCINE) 5000 UNITS/ML 1ML VIAL ONE (07:34)
[2023-10-01] MEDS: PROTAMINE SULFATE 10 MG/ML 5ML VIAL IV ONE (07:35)
[2023-10-01] MEDS: SODIUM CHL 0.9% 1000 ML BAG XX ONE ×2 (07:36→07:37)
[2023-10-01 08:00] VITALS: PULSE 105; PULSE 114; RESP 20; O2SAT 96
[2023-10-01] MEDS: LORazepam 2MG/ML-1ML VIAL IV PRN (09:20)
[2023-10-01 13:00] VITALS: BP 108/72; PULSE 104; RESP 16; TEMP 98.2; O2SAT 100
[2023-10-01 14:06] VITALS: BP 116/78; PULSE 105
[2023-10-01 17:00] VITALS: BP 126/80; PULSE 109; RESP 16; TEMP 98.3; O2SAT 98
== END 2023-10-01 17:55 | disposition hospice, home (50) | DRG 853 ==
LOC: EDBD 13:40 → ER 13:40 → TELE 08-28 00:13 → TELE-CENTR 08-29 18:01 → ICU WEST 08-30 18:52 → TELE-WESTW 09-21 18:50
PROVIDERS: ADMIT Nurse Practitioner; ATTEND Internal Medicine Geriatric Medicine
PROC: 0BH17EZ Insertion of Endotracheal Airway into Trachea, Via Natural or Artificial Opening (ICD-10-PCS; 2023-08-30)
PROC: 5A1955Z Respiratory Ventilation, Greater than 96 Consecutive Hours (ICD-10-PCS; 2023-08-30)
PROC: 0D1B0Z4 Bypass Ileum to Cutaneous, Open Approach (ICD-10-PCS; 2023-08-30)
PROC: 02HV33Z Insertion of Infusion Device into Superior Vena Cava, Percutaneous Approach (ICD-10-PCS; 2023-08-30)
PROC: B548ZZA Ultrasonography of Superior Vena Cava, Guidance (ICD-10-PCS; 2023-08-30)
PROC: 0D9670Z Drainage of Stomach with Drainage Device, Via Natural or Artificial Opening (ICD-10-PCS; principal; 2023-08-30 11:02)
PROC: 02HV33Z Insertion of Infusion Device into Superior Vena Cava, Percutaneous Approach (ICD-10-PCS; 2023-08-31)
PROC: B548ZZA Ultrasonography of Superior Vena Cava, Guidance (ICD-10-PCS; 2023-08-31)
PROC: 5A1D70Z Performance of Urinary Filtration, Intermittent, Less than 6 Hours Per Day (ICD-10-PCS; 2023-08-31)
PROC: 5A1D70Z Performance of Urinary Filtration, Intermittent, Less than 6 Hours Per Day (ICD-10-PCS; 2023-09-01)
PROC: 5A1D70Z Performance of Urinary Filtration, Intermittent, Less than 6 Hours Per Day (ICD-10-PCS; 2023-09-02)
PROC: 5A1D70Z Performance of Urinary Filtration, Intermittent, Less than 6 Hours Per Day (ICD-10-PCS; 2023-09-04)
PROC: 5A1D70Z Performance of Urinary Filtration, Intermittent, Less than 6 Hours Per Day (ICD-10-PCS; 2023-09-06)
PROC: 5A1D70Z Performance of Urinary Filtration, Intermittent, Less than 6 Hours Per Day (ICD-10-PCS; 2023-09-09)
PROC: 5A1D70Z Performance of Urinary Filtration, Intermittent, Less than 6 Hours Per Day (ICD-10-PCS; 2023-09-11)
PROC: 06HY33Z Insertion of Infusion Device into Lower Vein, Percutaneous Approach (ICD-10-PCS; 2023-09-12)
PROC: B54BZZA Ultrasonography of Right Lower Extremity Veins, Guidance (ICD-10-PCS; 2023-09-12)
PROC: 5A1D70Z Performance of Urinary Filtration, Intermittent, Less than 6 Hours Per Day (ICD-10-PCS; 2023-09-12)
PROC: 5A1D70Z Performance of Urinary Filtration, Intermittent, Less than 6 Hours Per Day (ICD-10-PCS; 2023-09-13)
PROC: 5A1D70Z Performance of Urinary Filtration, Intermittent, Less than 6 Hours Per Day (ICD-10-PCS; 2023-09-15)
PROC: 5A1D70Z Performance of Urinary Filtration, Intermittent, Less than 6 Hours Per Day (ICD-10-PCS; 2023-09-17)
PROC: 5A1D70Z Performance of Urinary Filtration, Intermittent, Less than 6 Hours Per Day (ICD-10-PCS; 2023-09-19)
PROC: 5A1D70Z Performance of Urinary Filtration, Intermittent, Less than 6 Hours Per Day (ICD-10-PCS; 2023-09-22)
PROC: 5A1D70Z Performance of Urinary Filtration, Intermittent, Less than 6 Hours Per Day (ICD-10-PCS; 2023-09-25)
PROC: 0JH63XZ Insertion of Tunneled Vascular Access Device into Chest Subcutaneous Tissue and Fascia, Percutaneous Approach (ICD-10-PCS; 2023-09-26)
PROC: 02H633Z Insertion of Infusion Device into Right Atrium, Percutaneous Approach (ICD-10-PCS; 2023-09-26)
PROC: B518ZZA Fluoroscopy of Superior Vena Cava, Guidance (ICD-10-PCS; 2023-09-26)
PROC: B548ZZA Ultrasonography of Superior Vena Cava, Guidance (ICD-10-PCS; 2023-09-26)
PROC: 5A1D70Z Performance of Urinary Filtration, Intermittent, Less than 6 Hours Per Day (ICD-10-PCS; 2023-09-27)
PROC: 5A1D70Z Performance of Urinary Filtration, Intermittent, Less than 6 Hours Per Day (ICD-10-PCS; 2023-09-29)
DX: A41.9 Sepsis, unspecified organism (principal); E11.10 Type 2 diabetes mellitus with ketoacidosis without coma; J96.01 Acute respiratory failure with hypoxia; R65.21 Severe sepsis with septic shock; I46.9 Cardiac arrest, cause unspecified; N17.0 Acute kidney failure with tubular necrosis; J15.212 Pneumonia due to Methicillin resistant Staphylococcus aureus; N18.6 End stage renal disease; K55.039 Acute (reversible) ischemia of large intestine, extent unspecified; I50.23 Acute on chronic systolic (congestive) heart failure; K56.609 Unspecified intestinal obstruction, unspecified as to partial versus complete obstruction; G93.40 Encephalopathy, unspecified; I47.20 Ventricular tachycardia, unspecified; E87.3 Alkalosis; I13.2 Hypertensive heart and chronic kidney disease with heart failure and with stage 5 chronic kidney disease, or end stage renal disease; E78.5 Hyperlipidemia, unspecified; E86.0 Dehydration; D72.829 Elevated white blood cell count, unspecified; K57.30 Diverticulosis of large intestine without perforation or abscess without bleeding; E66.9 Obesity, unspecified; F41.9 Anxiety disorder, unspecified; F32.A Depression, unspecified; M10.9 Gout, unspecified; E83.51 Hypocalcemia; I25.10 Atherosclerotic heart disease of native coronary artery without angina pectoris; N20.0 Calculus of kidney; B19.20 Unspecified viral hepatitis C without hepatic coma; E11.22 Type 2 diabetes mellitus with diabetic chronic kidney disease; K21.9 Gastro-esophageal reflux disease without esophagitis; Z68.34 Body mass index [BMI] 34.0-34.9, adult; Z99.2 Dependence on renal dialysis; Z79.4 Long term (current) use of insulin; Z79.2 Long term (current) use of antibiotics; Z79.899 Other long term (current) drug therapy; Z79.82 Long term (current) use of aspirin; Z83.3 Family history of diabetes mellitus; Z82.49 Family history of ischemic heart disease and other diseases of the circulatory system; Z95.1 Presence of aortocoronary bypass graft; Z93.3 Colostomy status; Z93.2 Ileostomy status; Z91.148 Patient's other noncompliance with medication regimen for other reason; Z81.8 Family history of other mental and behavioral disorders; Z90.49 Acquired absence of other specified parts of digestive tract; Z78.1 Physical restraint status; Z68.29 Body mass index [BMI] 29.0-29.9, adult
CPT/HCPCS: 36415; 36600; 70450; 71045; 71046; 74018; 74176; 74250; 76000; 76775; 76937; 80048; 80053; 80074; 81001; 82010; 82805; 82962; 83605; 83615; 83690; 83735; 83930; 84100; 84132; 84443; 84478; 84484; 84550; 85007; 85018; 85025; 85027; 85610; 85730; 86850; 86900; 86901; 87040; 87070; 87075; 87077; 87086; 87186; 87205; 90935; 92610; 93005; 93306; 93925; 93970; 94002; 94003; 97110; 97116; 97163; 97530; 99291; A4565; C9113; G0378; J0171; J1100; J1642; J1815; J2001; J2185; J2248; J2250; J2405; J3480; J3490; J7060; J7131; P9047